=== PATIENT | female | born 1970 | race Caucasian/White ===

== ENCOUNTER → 2017-12-28 | Outpatient (CLI) | payer BC ==
--- NOTE | 2017-12-30 09:43 | MM ---
Reason for exam: screening (asymptomatic). Last mammogram was performed 1 year and 5 months ago. Physical Findings: A clinical breast exam by your physician is recommended on an annual basis and results should be correlated with mammographic findings. MG Screening Mammo w CAD Bilateral CC and MLO view(s) were taken. Prior study comparison: July 29, 2016, bilateral MG screening mammo w CAD. July 23, 2015, bilateral MG screening mammo w CAD. There are scattered fibroglandular densities. No significant changes when compared with prior studies. ASSESSMENT: Negative, BI-RAD 1 RECOMMENDATION: Routine screening mammogram of both breasts in 1 year.
== END | disposition home or self-care (01) ==
LOC: RADMAMWWP 09:41
PROVIDERS: ATTEND Family Medicine
DX: Z12.31 Encounter for screening mammogram for malignant neoplasm of breast (principal)
CPT/HCPCS: 77067

== ENCOUNTER 2020-12-23 11:36 | Inpatient (IN) | payer BC ==
[2020-12-23] MEDS ORDERED: PANTOPRAZOLE 40 MG/10 ML VIAL IVP STA (11:49)
[2020-12-23] MEDS ORDERED: HYDROmorphone 1 MG/ML 1 ML SYRINGE IVP STA (11:49)
[2020-12-23] MEDS ORDERED: SODIUM CHLORIDE 0.9% 500 ML 500 ML IV ONE (11:51)
[2020-12-23] MEDS ORDERED: ASPIRIN 325 MG TAB PO STA (11:51)
--- NOTE | 2020-12-23 11:52 | ED ---
General Adult HPI - General Chief complaint: Chest Pain Stated complaint: Chest pain Time Seen by Provider: 12/23/20 11:42 Source: patient, RN notes reviewed, old records reviewed Mode of arrival: wheelchair Limitations: no limitations - History of Present Illness Initial comments: 50-year-old female presents for evaluation of substernal chest pain which began 2 hours prior to arrival. This was associated with some nausea and vomiting. She has a history of lap band. She states that she had no symptoms prior to the onset 2 hours ago. She has had normal bowel movements up until yesterday. She denies any abdominal pain. The pain is mid chest. No previous history of CAD. She does report some mild associated dyspnea. No diaphoresis. - Related Data Home Medications Medication Instructions Recorded Confirmed Multivitamin [Multivitamins Adult 2 tab PO DAILY 04/30/16 05/12/16 Gummies] Allergies Allergy/AdvReac Type Severity Reaction Status Date / Time codeine Allergy Rash/Hives Verified 12/23/20 11:39 hydrocodone Allergy Rash/Hives Verified 12/23/20 11:39 infliximab [From Remicade] Allergy bronchospas Verified 12/23/20 11:39 ms/hives ondansetron HCl AdvReac seizure Verified 12/23/20 11:39 [From Zofran (as like hydrochloride)] activity prochlorperazine AdvReac "looked Verified 12/23/20 11:39 [From Compazine] like a seizure" prochlorperazine edisylate AdvReac "looked Verified 12/23/20 11:39 [From Compazine] like a seizure" prochlorperazine maleate AdvReac "looked Verified 12/23/20 11:39 [From Compazine] like a seizure" Review of Systems ROS Statement: Those systems with pertinent positive or pertinent negative responses have been documented in the HPI. ROS Other: All systems not noted in ROS Statement are negative. Past Medical History Additional Past Medical History / Comment(s): Chrohns Disease. History of Any Multi-Drug Resistant Organisms: None Reported Past Surgical History: Appendectomy, Bariatric Surgery, Bowel Resection, Cholecystectomy, Hernia Repair, Tubal Ligation Additional Past Surgical History / Comment(s): LAP BAND, Bowel resection x2 (2001 most recent) Past Anesthesia/Blood Transfusion Reactions: Motion Sickness Past Psychological History: No Psychological Hx Reported Smoking Status: Current every day smoker Past Alcohol Use History: Occasional Past Drug Use History: Marijuana - Past Family History Mother Family Medical History: Hyperlipidemia, Hypertension Additional Family Medical History / Comment(s): Heart has an "extra beat", still living. Father Family Medical History: Coronary Artery Disease (CAD), Hyperlipidemia, Hypertension Additional Family Medical History / Comment(s): Has a "bad valve" believes mitral. Still living. General Exam Limitations: no limitations General appearance: alert, in no apparent distress Head exam: Present: atraumatic, normocephalic Eye exam: Present: normal appearance, PERRL ENT exam: Present: mucous membranes dry Neck exam: Present: normal inspection. Absent: tenderness, meningismus Respiratory exam: Present: normal lung sounds bilaterally. Absent: respiratory distress, wheezes Cardiovascular Exam: Present: regular rate, normal rhythm GI/Abdominal exam: Present: soft. Absent: distended, tenderness, guarding, rebound, rigid Extremities exam: Present: normal inspection, normal capillary refill. Absent: pedal edema, calf tenderness Neurological exam: Present: alert, oriented X3, CN II-XII intact. Absent: motor sensory deficit Psychiatric exam: Present: anxious Skin exam: Present: warm, dry, intact. Absent: cyanosis, diaphoretic Course Vital Signs 12/23/20 11:37 Temperature 97.1 F L Pulse Rate 76 Respiratory 22 Rate Blood Pressure 151/89 O2 Sat by Pulse 100 Oximetry - Reevaluation(s) Reevaluation #1: 12/23/20 13:46 Patient reevaluated, resting comfortably, pain nearly resolved with GI cocktail. EKG Findings - EKG Comments: EKG Findings:: Normal sinus rhythm, rate 68, NV interval 136, QRS duration 88, QTC 421, no ST segment elevation T waves are upright. Repeat EKG at 1241, sinus bradycardia rate of 50, T-wave abnormality in aVL, no ST segment elevation, NV interval 128, QRS duration 90, QTC 408. Medical Decision Making - Medical Decision Making 50-year-old female presenting with chest pain. Workup is initiated, EKG showing sinus bradycardia without ST segment elevation. This is repeated with no significant change. She has a normal CBC, normal CMP, negative liver enzymes, negative cardiac enzymes 2 in the emergency department. Chest x-rays negative for acute cardiopulmonary disease. Her symptoms are improved with GI cocktail. She will be admitted with both cardiology and general surgery on consult. - Lab Data Result diagrams: 12/23/20 11:51 12/23/20 11:51 Lab Results 12/23/20 12/23/20 12/23/20 Range/Units 11:51 11:51 11:51 WBC 7.4 (3.8-10.6) k/uL RBC 4.50 (3.80-5.40) m/uL Hgb 13.9 (11.4-16.0) gm/dL Hct 40.8 (34.0-46.0) % MCV 90.7 (80.0-100.0) fL MCH 31.0 (25.0-35.0) pg MCHC 34.1 (31.0-37.0) g/dL RDW 12.4 (11.5-15.5) % Plt Count 276 (150-450) k/uL MPV 6.7 Neutrophils % 63 % Lymphocytes % 26 % Monocytes % 4 % Eosinophils % 4 % Basophils % 1 % Neutrophils # 4.7 (1.3-7.7) k/uL Lymphocytes # 1.9 (1.0-4.8) k/uL Monocytes # 0.3 (0-1.0) k/uL Eosinophils # 0.3 (0-0.7) k/uL Basophils # 0.0 (0-0.2) k/uL PT 9.4 (9.0-12.0) sec INR 0.8 (<1.2) APTT 22.2 (22.0-30.0) sec Sodium 137 (137-145) mmol/L Potassium 4.2 (3.5-5.1) mmol/L Chloride 106 (98-107) mmol/L Carbon Dioxide 26 (22-30) mmol/L Anion Gap 5 mmol/L BUN 13 (7-17) mg/dL Creatinine 0.81 (0.52-1.04) mg/dL Est GFR (CKD-EPI)AfAm >90 (>60 ml/min/1.73 sqM) Est GFR (CKD-EPI)NonAf 84 (>60 ml/min/1.73 sqM) Glucose 105 H (74-99) mg/dL Calcium 10.4 H (8.4-10.2) mg/dL Magnesium 2.0 (1.6-2.3) mg/dL Total Bilirubin 0.6 (0.2-1.3) mg/dL AST 23 (14-36) U/L ALT 21 (4-34) U/L Alkaline Phosphatase 91 (38-126) U/L Troponin I (0.000-0.034) ng/mL Total Protein 6.9 (6.3-8.2) g/dL Albumin 4.1 (3.5-5.0) g/dL Lipase 86 (23-300) U/L 12/23/20 12/23/20 Range/Units 11:51 12:55 WBC (3.8-10.6) k/uL RBC (3.80-5.40) m/uL Hgb (11.4-16.0) gm/dL Hct (34.0-46.0) % MCV (80.0-100.0) fL MCH (25.0-35.0) pg MCHC (31.0-37.0) g/dL RDW (11.5-15.5) % Plt Count (150-450) k/uL MPV Neutrophils % % Lymphocytes % % Monocytes % % Eosinophils % % Basophils % % Neutrophils # (1.3-7.7) k/uL Lymphocytes # (1.0-4.8) k/uL Monocytes # (0-1.0) k/uL Eosinophils # (0-0.7) k/uL Basophils # (0-0.2) k/uL PT (9.0-12.0) sec INR (<1.2) APTT (22.0-30.0) sec Sodium (137-145) mmol/L Potassium (3.5-5.1) mmol/L Chloride (98-107) mmol/L Carbon Dioxide (22-30) mmol/L Anion Gap mmol/L BUN (7-17) mg/dL Creatinine (0.52-1.04) mg/dL Est GFR (CKD-EPI)AfAm (>60 ml/min/1.73 sqM) Est GFR (CKD-EPI)NonAf (>60 ml/min/1.73 sqM) Glucose (74-99) mg/dL Calcium (8.4-10.2) mg/dL Magnesium (1.6-2.3) mg/dL Total Bilirubin (0.2-1.3) mg/dL AST (14-36) U/L ALT (4-34) U/L Alkaline Phosphatase (38-126) U/L Troponin I <0.012 <0.012 (0.000-0.034) ng/mL Total Protein (6.3-8.2) g/dL Albumin (3.5-5.0) g/dL Lipase (23-300) U/L Disposition Clinical Impression: Chest pain Disposition: ADMITTED IP TO THIS HOSP Condition: Stable Is patient prescribed a controlled substance at d/c from ED?: No Referrals: Audi Marte DO [Primary Care Provider] - 1-2 days Decision to Admit Reason: Admit from EC Decision Date: 12/23/20 Decision Time: 13:48
[2020-12-23 12:00] LABS: Basophils % (A) 1 %; Eosinophils # (A) 0.3 k/uL (0-0.7); Eosinophils % (A) 4 %; HCT 40.8 % (34.0-46.0); HGB 13.9 gm/dL (11.4-16.0); Lymphocytes # (A) 1.9 k/uL (1.0-4.8); Lymphocytes % (A) 26 %; MCHC 34.1 g/dL (31.0-37.0); MCV 90.7 fL (80.0-100.0); Mean Platelet Volume 6.7; Monocytes # (A) 0.3 k/uL (0-1.0); Monocytes % (A) 4 %; Neutrophils # (A) 4.7 k/uL (1.3-7.7); Neutrophils % (A) 63 %; Platelet Count 276 k/uL (150-450); RDW 12.4 % (11.5-15.5); WBC 7.4 k/uL (3.8-10.6)
[2020-12-23 12:11] LABS: ALT 21 U/L (4-34); AST 23 U/L (14-36); African American GFR (CKD) >90 (>60 ml/min/1.73 sqM); Albumin 4.1 g/dL (3.5-5.0); Alkaline Phosphatase 91 U/L (38-126); Anion Gap 5 mmol/L; Blood Urea Nitrogen 13 mg/dL (7-17); Calcium 10.4 mg/dL (8.4-10.2); Carbon Dioxide 26 mmol/L (22-30); Chloride 106 mmol/L (98-107); Glucose 105 mg/dL (74-99); Lipase 86 U/L (23-300); Non-African American GFR(CKD) 84 (>60 ml/min/1.73 sqM); Potassium 4.2 mmol/L (3.5-5.1); Sodium 137 mmol/L (137-145); Total Bilirubin 0.6 mg/dL (0.2-1.3); Total Protein 6.9 g/dL (6.3-8.2)
--- NOTE | 2020-12-23 12:13 | XR ---
EXAMINATION TYPE: XR chest 2V DATE OF EXAM: 12/23/2020 COMPARISON: None TECHNIQUE: PA and lateral views submitted. HISTORY: Chest pain FINDINGS: The lungs are clear and there is no pneumothorax, pleural effusion, or focal pneumonia. Suggestion of previous lap band surgery. IMPRESSION: 1. No acute process.
[2020-12-23 12:17] LABS: INR 0.8 (<1.2); Partial Thromboplastin Time 22.2 sec (22.0-30.0); Prothrombin Time 9.4 sec (9.0-12.0)
[2020-12-23] MEDS ORDERED: HYDROmorphone 0.5 MG/0.5 ML SYRINGE IVP STA (12:42)
[2020-12-23] MEDS ORDERED: MAG HYDROX/AL HYDROX/SIMETH 30 ML, HYOSCYAMINE ELIXIR 10 ML, LIDOCAINE VISCOUS 2% 10 ML PO STA ×3 (12:43)
[2020-12-23] MEDS ORDERED: NALOXONE 0.4 MG/ML 1 ML VIAL IV PRN (13:41)
[2020-12-23] MEDS ORDERED: HYDROmorphone 1 MG/ML 1 ML SYRINGE IVP PRN (13:41)
[2020-12-23 15:29] LABS: ALT 21 U/L (4-34); AST 23 U/L (14-36); African American GFR (CKD) >90 (>60 ml/min/1.73 sqM); Albumin/Globulin Ratio 1.4; Alkaline Phosphatase 85 U/L (38-126); Anion Gap 5 mmol/L; Blood Urea Nitrogen 13 mg/dL (7-17); C Reactive Protein 1.5 mg/dL (<1.0); Calcium 9.6 mg/dL (8.4-10.2); Carbon Dioxide 28 mmol/L (22-30); Chloride 106 mmol/L (98-107); Globulin 2.8 g/dL; Glucose 118 mg/dL (74-99); Non-African American GFR(CKD) 83 (>60 ml/min/1.73 sqM); Sodium 139 mmol/L (137-145); Total Bilirubin 0.5 mg/dL (0.2-1.3); Total Protein 6.8 g/dL (6.3-8.2)
--- NOTE | 2020-12-23 15:33 | HP ---
HISTORY AND PHYSICAL DATE OF SERVICE: 12/23/2020 CHIEF COMPLAINT: Chest pain. HISTORY OF PRESENT ILLNESS: This 50-year-old woman with a past medical history of multiple medical problems including appendectomy, history of bariatric surgery, bowel resection, cholecystectomy, history of lap band, being followed by Dr. Marte in the outpatient setting was complaining of chest pain. The pain was associated with some nausea and vomiting. patient came to [facility] and was admitted to the hospital for further evaluation and treatment. Patient reports some stress . The most recent chest x-ray which I reviewed personally showed some increased bronchovascular markings. There is no history of fever, rigors, chills at this time. PAST MEDICAL HISTORY: Appendectomy, history of bariatric surgery, bowel resection, cholecystectomy, history of lap band. MEDICATIONS: Medications prior to admission include: Omeprazole 20 mg daily, vitamins 1 p.o. daily. ALLERGIES: CODEINE, HYDROCODONE, REMICADE, PROCHLORPERAZINE. FAMILY HISTORY: Hypertension, hyperlipidemia, history of PVCs. SOCIAL HISTORY: History of smoking. REVIEW OF SYSTEMS: ENT: No diminished vision. No diminished hearing. CARDIOVASCULAR as mentioned earlier. RESPIRATORY: As mentioned earlier. GASTROENTEROLOGY: Crohn's disease. : No dysuria. NERVOUS SYSTEM: No numbness, weakness. ALLERGY/IMMUNOLOGY: No asthma or hayfever. MUSCULOSKELETAL as mentioned earlier. HEMATOLOGY/ONCOLOGY: No history of anemia. ENDOCRINE: No history of diabetes or hypothyroidism. CONSTITUTIONAL: As mentioned earlier. DERMATOLOGY: Negative. RHEUMATOLOGY: Negative. PSYCHIATRIC: As mentioned earlier. PHYSICAL EXAMINATION: The patient is alert and oriented times three. Pulse 76. Blood pressure 151/89, respiration 20, temperature 97.1, pulse ox 100 percent on room air. HEENT: Conjunctivae normal. NECK: No JVD. CARDIOVASCULAR: S1, S2 muffled. RESPIRATION: Breath sounds diminished in the bases. A few scattered rhonchi and crackles. ABDOMEN: Soft, nontender. No mass palpable. LEGS: No edema. No swelling. NERVOUS SYSTEM: Higher functions as mentioned earlier. Moves all 4 limbs, no focal motor or sensory deficits. SKIN: No ulcer, no rash and no bleeding. JOINTS: No active deforming arthropathy. LABS: At this time shows: WBC 7.2, hemoglobin 13.9, and calcium is 10.4. Troponins are negative. The EKG which I personally reviewed showed no acute abnormality. ASSESSMENT: 1. Chest pain for evaluation, possibly unstable angina. Rule out coronary artery disease and Myocardial infarction 2. Nausea vomiting possible acute gastritis 3. Mild hypercalcemia. 4. Crohn's disease history. 5. Appendectomy. 6. History of bariatric surgery. 7. History of bowel resection. 8. History of cholecystectomy. 9. History of lap band. 10.History of continued ongoing nicotine dependence. 11.History of THC. 12.FULL CODE. RECOMMENDATIONS AND DISCUSSION: This 50-year-old woman who presented with multiple complex medical issues, we will monitor the patient closely, continue the current medications, management and symptomatic treatment. I would also recommend D-dimer and if D-dimer is positive, I will obtain a CT angio of the chest. Otherwise, continue to monitor. Cardiology consult, rule out myocardial function. the patient is not better heparin drip and as well as some nitro drip could be initiated. Symptomatic treatment also will be provided. See orders for further details. Old charts are reviewed Prognosis guarded because of multiple complex medical issues. A copy of dictation being forwarded to Dr. Marte who is the primary physician. MMODL / IJN: [id number] / MTDVijay
[2020-12-23] MEDS ORDERED: METOCLOPRAMIDE 5 MG/ML 2 ML VIAL IM PRN (18:10)
[2020-12-23] MEDS: SODIUM CHLORIDE 0.9% 1,000 ML IV SCH (18:15)
[2020-12-23] MEDS: METOCLOPRAMIDE 5 MG/ML 2 ML VIAL IVP SCH ×2 (18:24→23:25)
[2020-12-23] MEDS ORDERED: HEPARIN SODIUM 1,000 UN/ML (10ML VL) IV PRN (19:01)
[2020-12-23] MEDS ORDERED: HEPARIN SODIUM 1,000 UN/ML (10ML VL) IV ONE (19:01)
[2020-12-23] MEDS ORDERED: HEPARIN SOD,PORK IN 0.45% NACL 25,000 UNIT in 0.45% NACL 1 250ML.BAG IV SCH (19:15)
[2020-12-23] MEDS: NITROGLYCERIN SL TABS 0.4 MG TAB SUBLINGUAL PRN ×2 (20:55→23:43)
[2020-12-23 22:09] LABS: Basophils % (A) 0 %; Eosinophils # (A) 0.1 k/uL (0-0.7); Eosinophils % (A) 1 %; HCT 38.6 % (34.0-46.0); HGB 13.1 gm/dL (11.4-16.0); Lymphocytes # (A) 1.2 k/uL (1.0-4.8); Lymphocytes % (A) 13 %; MCH 31.1 pg (25.0-35.0); MCHC 33.9 g/dL (31.0-37.0); MCV 91.8 fL (80.0-100.0); Mean Platelet Volume 6.7; Monocytes # (A) 0.4 k/uL (0-1.0); Monocytes % (A) 4 %; Neutrophils # (A) 7.8 k/uL (1.3-7.7); Neutrophils % (A) 81 %; Platelet Count 250 k/uL (150-450); RBC 4.21 m/uL (3.80-5.40); RDW 12.5 % (11.5-15.5); WBC 9.5 k/uL (3.8-10.6)
[2020-12-23] MEDS ORDERED: ACETAMINOPHEN TAB 325 MG TAB PO PRN (23:58)
[2020-12-24 01:09] LABS: INR 0.9 (<1.2); Partial Thromboplastin Time 37.7 sec (22.0-30.0); Prothrombin Time 9.9 sec (9.0-12.0)
[2020-12-24] MEDS: SODIUM CHLORIDE 0.9% 1,000 ML IV SCH ×3 (03:15→23:47)
[2020-12-24] MEDS: METOCLOPRAMIDE 5 MG/ML 2 ML VIAL IVP SCH (05:55)
[2020-12-24 07:51] LABS: Basophils # (A) 0.1 k/uL (0-0.2); Basophils % (A) 0 %; Eosinophils # (A) 0.1 k/uL (0-0.7); Eosinophils % (A) 1 %; HCT 37.1 % (34.0-46.0); HGB 12.2 gm/dL (11.4-16.0); Lymphocytes # (A) 1.3 k/uL (1.0-4.8); Lymphocytes % (A) 11 %; MCH 30.3 pg (25.0-35.0); MCHC 32.9 g/dL (31.0-37.0); MCV 92.1 fL (80.0-100.0); Mean Platelet Volume 6.8; Monocytes # (A) 0.4 k/uL (0-1.0); Monocytes % (A) 4 %; Neutrophils # (A) 9.5 k/uL (1.3-7.7); Neutrophils % (A) 83 %; Platelet Count 241 k/uL (150-450); RBC 4.03 m/uL (3.80-5.40); RDW 12.6 % (11.5-15.5); WBC 11.5 k/uL (3.8-10.6)
[2020-12-24] MEDS ORDERED: ASPIRIN 325 MG TAB PO STA (08:07)
[2020-12-24] MEDS ORDERED: ATORVASTATIN 80 MG TAB PO STA (08:07)
[2020-12-24] MEDS ORDERED: SODIUM CHLORIDE 0.9% 1,000 ML in EMPTY BAG 1 BAG IV ONE (08:07)
[2020-12-24 08:08] LABS: Anion Gap 2 mmol/L; Blood Urea Nitrogen 11 mg/dL (7-17); Carbon Dioxide 26 mmol/L (22-30); Chloride 109 mmol/L (98-107); Glucose 113 mg/dL (74-99); Potassium 3.7 mmol/L (3.5-5.1); Sodium 137 mmol/L (137-145)
[2020-12-24 08:09] LABS: African American GFR (CKD) >90 (>60 ml/min/1.73 sqM); Calcium 8.6 mg/dL (8.4-10.2); Non-African American GFR(CKD) >90 (>60 ml/min/1.73 sqM)
[2020-12-24 08:10] LABS: INR 0.9 (<1.2); Partial Thromboplastin Time 48.6 sec (22.0-30.0); Prothrombin Time 9.9 sec (9.0-12.0)
[2020-12-24] MEDS ORDERED: NITROGLYCERIN OINT 1 INCH/GM PACKET TOPICAL SCH (08:30)
[2020-12-24 08:39] LABS: Cholesterol 209 mg/dL (<200); HDL Cholesterol 68 mg/dL (40-60); LDL Cholesterol,Calculated 122 mg/dL (0-99); Triglycerides 93 mg/dL (<150)
[2020-12-24] MEDS ORDERED: METOCLOPRAMIDE 5 MG/ML 2 ML VIAL IVP PRN (08:54)
[2020-12-24] MEDS ORDERED: PANTOPRAZOLE 40 MG/10 ML VIAL IV SCH (09:00)
[2020-12-24] MEDS ORDERED: NITROGLYCERIN-D5W PMX 50 MG in DEXTROSE/WATER 1 250ML.BAG IV SCH ×2 (09:15)
[2020-12-24] MEDS ORDERED: fentaNYL (PF) 50 MCG/ML 2 ML AMP IVP ONE ×3 (09:53→10:26)
[2020-12-24] MEDS ORDERED: IV FLUID CONTINUATION 800 ML IV ONE (09:53)
[2020-12-24] MEDS ORDERED: MIDAZOLAM 2 MG/2 ML VIAL IVP ONE ×2 (09:53→10:27)
[2020-12-24] MEDS ORDERED: LIDOCAINE 1% INJ 10MG/ML (20 ML MDV) SQ ONE (09:56)
[2020-12-24] MEDS ORDERED: BIVALIRUDIN 250 MG in SODIUM CHLORIDE 0.9% 50 ML IV ONE (10:27)
[2020-12-24] MEDS ORDERED: BIVALIRUDIN BOLUS 250 MG/50 ML IV ONE (10:28)
[2020-12-24] MEDS ORDERED: niCARdipine Syringe (1,000 mcg/10 mL) INTRACORON ONE (10:41)
[2020-12-24] MEDS ORDERED: NITROGLYCERIN 1000MCG/10ML SYRINGE INTRACORON ONE (10:41)
[2020-12-24] MEDS ORDERED: HYDROmorphone 1 MG/ML 1 ML SYRINGE IVP ONE (10:51)
[2020-12-24] MEDS ORDERED: PRASUGREL 10 MG TAB ONE (10:56)
[2020-12-24] MEDS ORDERED: PRASUGREL 10 MG TAB PO ONE (10:58)
[2020-12-24] MEDS ORDERED: IOPAMIDOL-370 100ML BTL INJ ONE (11:00)
[2020-12-24] MEDS ORDERED: NITROGLYCERIN SL TABS 0.4 MG TAB SUBLINGUAL PRN (11:07)
[2020-12-24] MEDS ORDERED: MAG HYDROX/AL HYDROX/SIMETH 30 ML CUP PO PRN (11:07)
[2020-12-24] MEDS ORDERED: ATROPINE SULFATE 0.1 MG/ML 10ML SYRINGE IV PRN (11:07)
[2020-12-24] MEDS ORDERED: ZOLPIDEM 5 MG TAB PO PRN (11:07)
[2020-12-24] MEDS ORDERED: RX INFO: IV CONTRAST WAS GIVEN 1 EACH MISC MISCELLANE PRN (11:07)
--- NOTE | 2020-12-24 11:08 | P.CRDCN ---
History of Present Illness History of present illness: HISTORY OF PRESENTING ILLNESS This is a pleasant 50-year-old female past medical history significant for chronic nicotine dependence and prior history of hypertension that resolved with weight loss status post lap band procedure. 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 We have been asked to see in consultation for chest pain. He states yesterday morning she woke up in her usual state of health. She walked out to the barn to feed the birds. She developed an acute onset of sharp pain in the midsternal region. It did not radiate to the arm, back, neck or jaw. It was associated with shortness of breath, nausea, dizziness, diaphoresis and overall weakness. Her assisted her to sit down and had her drink a glass of water. Her symptoms persisted and worsened in intensity prompting her to come to the hospital for further evaluation. On arrival to emergency department she was having ongoing chest discomfort. She states it was 9/10. She was given Dilaudid and nitroglycerin which did relieve her discomfort. She states through the night she had multiple episodes of recurrent chest discomfort that was exacerbated by activity or exertion such as walking to the bathroom. Nitro infusion was initiated. She is currently chest pain-free. DIAGNOSTICS EKG reveals sinus mechanism with no acute ST or T wave abnormalities noted. Telemetry tracings indicate sinus mechanism. Chest xray negative for an acute cardiopulmonary process. Laboratory reviewed, BC 11.5, hemoglobin 12.2, platelets 241, d-dimer 0.39, sodium 137, potassium 3.7, creatinine 0.73, initial 3 troponins are unremarkable, they were repeated after ongoing chest discomfort revealing 0.0 77 and 0.590, LDL 122 and HDL 68. She takes no daily cardiac medications. REVIEW OF SYSTEMS At the time of my exam: CONSTITUTIONAL: Denies fever or chills. CARDIOVASCULAR: Denies chest pain, shortness of breath, orthopnea, PND or palpitations. RESPIRATORY: Denies cough. GASTROINTESTINAL: Denies abdominal pain, diarrhea, constipation, nausea or vomiting. MUSCULOSKELETAL: Denies myalgias. NEUROLOGIC: Denies numbness, tingling, headacbe or weakness. ENDOCRINE: Denies fatigue, weight change, polydipsia or polyurina. GENITOURINARY: Denies burning, hematuria or urgency with micturation. HEMATOLOGIC: Denies history of anemia or bleeding. PHYSICAL EXAMINATION Blood pressure 133/78 heart rate 74 afebrile and maintaining oxygen saturation on room air. CONSTITUTIONAL: No apparent distress. HEENT: Head is normocephalic. Pupils are equal, round. Sclerae anicteric. Mucous membranes of the mouth are moist. No JVD. No carotid bruit. CHEST EXAMINATION: Lungs are clear to auscultation. No chest wall tenderness is noted on palpation or with deep breathing. HEART EXAMINATION: Regular rate and rhythm. S1, S2 heard. No murmurs, gallops or rub. ABDOMEN: Soft, nontender. Positive bowel sounds. EXTREMITIES: 2+ peripheral pulses, no lower extremity edema and no calf tenderness. NEUROLOGIC EXAMINATION: Patient is awake, alert and oriented x3. ASSESSMENT Unstable angina Non-ST elevated myocardial infarction Dyslipidemia Chronic nicotine dependence PLAN Recommend proceeding with cardiac catheterization. I have discussed the risks, benefits and alternative therapies for the above-mentioned procedure and for both sedation/analgesia as well as necessary blood product administration, if indicated, as they pertain to this patient. The patient has indicated understanding and acceptance of the risks and procedures discussed. Questions have been answered appropriately and she is agreeable to move forward with the above stated procedure. Obtain 2-D echocardiogram and Doppler study to assess cardiac structure and function. Initiate aspirin 81 mg daily and atorvastatin 80 mg daily. Further recommendations to follow based upon clinical course. Nurse Practitioner note has been reviewed, I agree with a documented findings and plan of care. Patient was seen and examined. Past Medical History Additional Past Medical History / Comment(s): Chrohns Disease. History of Any Multi-Drug Resistant Organisms: None Reported Past Surgical History: Appendectomy, Bariatric Surgery, Bowel Resection, Cholecystectomy, Hernia Repair, Tubal Ligation Additional Past Surgical History / Comment(s): LAP BAND, Bowel resection x2 (2001 most recent) Past Anesthesia/Blood Transfusion Reactions: Motion Sickness Past Psychological History: No Psychological Hx Reported Smoking Status: Current every day smoker Past Alcohol Use History: Daily Additional Past Alcohol Use History / Comment(s): SMOKES 1/2 A PPD, STARTED AT AGE 11 (1981) - Past Family History Mother Family Medical History: Hyperlipidemia, Hypertension Additional Family Medical History / Comment(s): Heart has an "extra beat", still living. Father Family Medical History: Coronary Artery Disease (CAD), Hyperlipidemia, Hypert ension Additional Family Medical History / Comment(s): Has a "bad valve" believes mitral. Still living. Medications and Allergies Home Medications Medication Instructions Recorded Confirmed Type Multivitamins, Thera [Multivitamin 1 tab PO DAILY 12/23/20 12/23/20 History (formulary)] Omeprazole Magnesium [PriLOSEC OTC] 20 mg PO DAILY 12/23/20 12/23/20 History Allergies Allergy/AdvReac Type Severity Reaction Status Date / Time codeine Allergy Rash/Hives Verified 12/23/20 13:46 hydrocodone Allergy Rash/Hives Verified 12/23/20 13:46 infliximab [From Remicade] Allergy bronchospas Verified 12/23/20 13:46 ms/hives ondansetron HCl AdvReac seizure Verified 12/23/20 13:46 [From Zofran (as like hydrochloride)] activity prochlorperazine AdvReac "looked Verified 12/23/20 13:46 [From Compazine] like a seizure" prochlorperazine edisylate AdvReac "looked Verified 12/23/20 13:46 [From Compazine] like a seizure" prochlorperazine maleate AdvReac "looked Verified 12/23/20 13:46 [From Compazine] like a seizure" Physical Exam Vitals: Vital Signs Temp Pulse Pulse Resp BP BP Pulse Ox 12/24/20 03:37 98 F 73 18 111/71 97 12/24/20 00:00 98.1 F 70 16 136/75 97 12/23/20 21:00 67 130/79 12/23/20 20:57 65 133/86 12/23/20 20:45 97.8 F 67 16 173/93 98 12/23/20 20:31 98.1 F 61 18 152/81 100 12/23/20 19:28 66 18 141/97 96 12/23/20 18:00 60 18 128/92 98 12/23/20 14:53 52 L 18 133/87 98 12/23/20 11:37 97.1 F L 76 22 151/89 100 Intake and Output 12/23/20 12/24/20 12/24/20 22:59 06:59 14:59 Intake Total 598 Balance 598 Intake: Intake, IV Titration 58 Amount Heparin Sod,Pork in 0.45% 58 NaCl 25,000 unit In 0.45 % NaCl 1 250ml.bag @ 10. 498 UNITS/KG/HR 10 mls/hr IV .Q24H [facility] Rx#: [id number] Oral 540 Other: Voiding Method Toilet Toilet # Voids 1 Weight 95.254 kg 65 kg Results 12/24/20 07:23 12/24/20 07:23 Cardiac Enzymes 12/23/20 12/23/20 12/23/20 Range/Units 11:51 11:51 12:55 AST 23 (14-36) U/L Troponin I <0.012 <0.012 (0.000-0.034) ng/mL 12/23/20 12/23/20 12/23/20 Range/Units 14:33 15:02 17:52 AST 23 (14-36) U/L Troponin I <0.012 0.077 H* (0.000-0.034) ng/mL 12/23/20 Range/Units 21:47 AST (14-36) U/L Troponin I 0.590 H* (0.000-0.034) ng/mL Coagulation 12/23/20 12/24/20 Range/Units 11:51 00:48 PT 9.4 9.9 (9.0-12.0) sec APTT 22.2 37.7 H (22.0-30.0) sec CBC 12/23/20 12/23/20 12/24/20 Range/Units 11:51 21:47 07:23 WBC 7.4 9.5 11.5 H (3.8-10.6) k/uL RBC 4.50 4.21 4.03 (3.80-5.40) m/uL Hgb 13.9 13.1 12.2 (11.4-16.0) gm/dL Hct 40.8 38.6 37.1 (34.0-46.0) % Plt Count 276 250 241 (150-450) k/uL Comprehensive Metabolic Panel 12/23/20 12/23/20 Range/Units 11:51 14:33 Sodium 137 139 (137-145) mmol/L Potassium 4.2 4.0 (3.5-5.1) mmol/L Chloride 106 106 (98-107) mmol/L Carbon Dioxide 26 28 (22-30) mmol/L BUN 13 13 (7-17) mg/dL Creatinine 0.81 0.82 (0.52-1.04) mg/dL Glucose 105 H 118 H (74-99) mg/dL Calcium 10.4 H 9.6 (8.4-10.2) mg/dL AST 23 23 (14-36) U/L ALT 21 21 (4-34) U/L Alkaline Phosphatase 91 85 (38-126) U/L Total Protein 6.9 6.8 (6.3-8.2) g/dL Albumin 4.1 4.0 (3.5-5.0) g/dL Current Medications Generic Name Dose Route Start Last Admin Trade Name Freq PRN Reason Stop Dose Admin Acetaminophen 650 mg 12/23/20 23:58 Acetaminophen Tab 325 Mg Tab PO Q6HR PRN Fever and/ or Pain Heparin Sodium (Porcine) 0 unit 12/23/20 19:01 Heparin Sodium 1,000 Un/Ml (10ml Vl) IV PER PROTOCOL PRN Low PTT Protocol Hydromorphone HCl 0.5 mg 12/23/20 13:41 Hydromorphone 0.5 Mg/0.5 Ml Syringe IVP Q3HR PRN Moderate Pain Hydromorphone HCl 1 mg 12/23/20 13:41 12/23/20 14:50 Hydromorphone 1 Mg/Ml 1 Ml Syringe IVP 1 mg Q3HR PRN Administration Severe Pain Sodium Chloride 1,000 mls @ 75 mls/hr 12/23/20 13:45 12/24/20 03:15 Saline 0.9% IV Not Given .[id number] [id number] Heparin Sodium/Sodium Chloride 250 mls @ 10 mls/hr 12/23/20 19:15 12/24/20 01:19 25,000 unit/ Sodium Chloride IV 12.498 units/kg/hr .Q24H [facility] 11.905 mls/hr Titration Protocol 10.498 UNITS/KG/HR Nitroglycerin/Dextrose 50 mg/ 250 mls @ 3 mls/hr 12/24/20 00:00 12/24/20 00:15 IV Solution IV 10 mcg/min .Q24H MAKAYLA 3 mls/hr Administration Protocol 10 MCG/MIN Metoclopramide HCl 10 mg 12/23/20 18:30 12/24/20 05:55 Metoclopramide 5 Mg/Ml 2 Ml Vial IVP Not Given Q6HR MAKAYLA Naloxone HCl 0.2 mg 12/23/20 13:41 Naloxone 0.4 Mg/Ml 1 Ml Vial IV Q2M PRN Opioid Reversal Nitroglycerin 0.4 mg 12/23/20 12:19 12/23/20 23:43 Nitroglycerin Sl Tabs 0.4 Mg Tab SUBLINGUAL 0.4 mg Q5M PRN Administration Chest Pain Pantoprazole Sodium 40 mg 12/24/20 09:00 Pantoprazole 40 Mg/10 Ml Vial IV DAILY [facility] Intake and Output 12/23/20 12/24/20 12/24/20 22:59 06:59 14:59 Intake Total 598 Balance 598 Intake: Intake, IV Titration 58 Amount Heparin Sod,Pork in 0.45% 58 NaCl 25,000 unit In 0.45 % NaCl 1 250ml.bag @ 10. 498 UNITS/KG/HR 10 mls/hr IV .Q24H [facility] Rx#: [id number] Oral 540 Other: Voiding Method Toilet Toilet # Voids 1 Weight 95.254 kg 65 kg 12/24/20 07:23 12/23/20 14:33
[2020-12-24] MEDS ORDERED: SODIUM CHLORIDE 0.9% 1,000 ML IV SCH (11:15)
--- NOTE | 2020-12-24 13:42 | P.GSCN ---
History of Present Illness Consult date: 12/24/20 History of present illness: CHIEF COMPLAINT: Chest pain and epigastric abdominal pain HISTORY OF PRESENT ILLNESS: This is a 50-year-old female with a known history of lap band with a lap band port [place] [address] carr. She also has a history of bowel resection, cholecystectomy and hernia repair. She has a history of coronary artery disease. Patient presented to the hospital with complaints of chest pain in the midsternal area as well as discomfort in the epigastric area with nausea and vomiting. She also had shortness of breath, dizziness and diaphoresis and generalized weakness. She did have improvement with her symptoms with Dilaudid and nitroglycerin. She denies any difficulty with swallowing. She was found have elevated troponins and underwent heart catheterization today with 2 stents placed. Patient is seen after her heart catheterization. She is chest pain-free. She is feeling better. Surgical service was consulted in regards to patient's chest pain and if the lap and was meño to her symptoms. PAST MEDICAL HISTORY: See list. PAST SURGICAL HISTORY: See list. MEDICATIONS: See list. ALLERGIES: See list. SOCIAL HISTORY: No illicit drug use. REVIEW OF SYSTEMS: CONSTITUTIONAL: Denies fever or chills. HEENT: Denies blurred vision, vision changes, or eye pain. Denies hemoptysis CARDIOVASCULAR: Denies chest pain or pressure. RESPIRATORY: No shortness of breath. GASTROINTESTINAL: See HPI for pertinent findings HEMATOLOGIC: Denies bleeding disorders. GENITOURINARY: Denies any blood in urine or increased urinary frequency. SKIN: Denies pruitis. Denies rash. PHYSICAL EXAM: VITAL SIGNS: Reviewed GENERAL: Well-developed in no acute distress. HEENT: No sclera icterus. Extraocular movements grossly intact. Moist buccal mucosa. Head is atraumatic, normocephalic. No nasal drainage. ABDOMEN: Soft. Nondistended. Nontender NEUROLOGIC: Alert and oriented. Cranial nerves II through XII grossly intact. LABORATORY DATA: WBC 11.5 hemoglobin 12.2 crit and 0.73 Elevated troponins IMAGING: Chest x-rays negative ASSESSMENT: 1. Chest pain with known history of coronary disease status post heart catheterization 2. History of lap band with laparoscopic replacement and removal of lap band p ort in April 2016. PLAN: -Patient's symptoms are cardiac in nature. Lap band port is not contributing to patient's symptoms. -No surgical intervention planned -Continue supportive care Thank you for this consultation Physician Glaciologist note has been reviewed by physician. Signing provider agrees with the documented findings, assessment, and plan of care. Past Medical History Additional Past Medical History / Comment(s): Chrohns Disease. History of Any Multi-Drug Resistant Organisms: None Reported Past Surgical History: Appendectomy, Bariatric Surgery, Bowel Resection, Cholecystectomy, Hernia Repair, Tubal Ligation Additional Past Surgical History / Comment(s): LAP BAND, Bowel resection x2 (2001 most recent) Past Anesthesia/Blood Transfusion Reactions: Motion Sickness Past Psychological History: No Psychological Hx Reported Smoking Status: Current every day smoker Past Alcohol Use History: Daily Additional Past Alcohol Use History / Comment(s): SMOKES 1/2 A PPD, STARTED AT AGE 11 (1981) - Past Family History Mother Family Medical History: Hyperlipidemia, Hypertension Additional Family Medical History / Comment(s): Heart has an "extra beat", still living. Father Family Medical History: Coronary Artery Disease (CAD), Hyperlipidemia, Hypertension Additional Family Medical History / Comment(s): Has a "bad valve" believes mitral. Still living. Medications and Allergies Home Medications Medication Instructions Recorded Confirmed Type Multivitamins, Thera [Multivitamin 1 tab PO DAILY 12/23/20 12/23/20 History (formulary)] Omeprazole Magnesium [PriLOSEC OTC] 20 mg PO DAILY 12/23/20 12/23/20 History Allergies Allergy/AdvReac Type Severity Reaction Status Date / Time codeine Allergy Rash/Hives Verified 12/23/20 13:46 hydrocodone Allergy Rash/Hives Verified 12/23/20 13:46 infliximab [From Remicade] Allergy bronchospas Verified 12/23/20 13:46 ms/hives ondansetron HCl AdvReac seizure Verified 12/23/20 13:46 [From Zofran (as like hydrochloride)] activity prochlorperazine AdvReac "looked Verified 12/23/20 13:46 [From Compazine] like a seizure" prochlorperazine edisylate AdvReac "looked Verified 12/23/20 13:46 [From Compazine] like a seizure" prochlorperazine maleate AdvReac "looked Verified 12/23/20 13:46 [From Compazine] like a seizure" Surgical - Exam Vital Signs Temp Pulse Resp BP Pulse Ox 97.1 F L 76 22 151/89 100 12/23/20 11:37 12/23/20 11:37 12/23/20 11:37 12/23/20 11:37 12/23/20 11:37 Results - Labs 12/24/20 07:23 12/24/20 07:23 Abnormal Lab Results - Last 24 Hours (Table) 12/23/20 12/23/20 12/23/20 Range/Units 14:33 17:52 21:47 WBC (3.8-10.6) k/uL Neutrophils # 7.8 H (1.3-7.7) k/uL APTT (22.0-30.0) sec Chloride (98-107) mmol/L Glucose 118 H (74-99) mg/dL Troponin I 0.077 H* (0.000-0.034) ng/mL C-Reactive Protein 1.5 H (<1.0) mg/dL Cholesterol (<200) mg/dL LDL Cholesterol, Calc (0-99) mg/dL HDL Cholesterol (40-60) mg/dL 12/23/20 12/24/20 12/24/20 Range/Units 21:47 00:48 07:23 WBC 11.5 H (3.8-10.6) k/uL Neutrophils # 9.5 H (1.3-7.7) k/uL APTT 37.7 H (22.0-30.0) sec Chloride (98-107) mmol/L Glucose (74-99) mg/dL Troponin I 0.590 H* (0.000-0.034) ng/mL C-Reactive Protein (<1.0) mg/dL Cholesterol (<200) mg/dL LDL Cholesterol, Calc (0-99) mg/dL HDL Cholesterol (40-60) mg/dL 12/24/20 12/24/20 12/24/20 Range/Units 07:23 07:23 07:23 WBC (3.8-10.6) k/uL Neutrophils # (1.3-7.7) k/uL APTT 48.6 H (22.0-30.0) sec Chloride 109 H (98-107) mmol/L Glucose 113 H (74-99) mg/dL Troponin I (0.000-0.034) ng/mL C-Reactive Protein (<1.0) mg/dL Cholesterol 209 H (<200) mg/dL LDL Cholesterol, Calc 122 H (0-99) mg/dL HDL Cholesterol 68 H (40-60) mg/dL Diabetes panel 12/23/20 12/24/20 12/24/20 Range/Units 14:33 07:23 07:23 Sodium 139 137 (137-145) mmol/L Potassium 4.0 3.7 (3.5-5.1) mmol/L Chloride 106 109 H (98-107) mmol/L Carbon Dioxide 28 26 (22-30) mmol/L BUN 13 11 (7-17) mg/dL Creatinine 0.82 0.73 (0.52-1.04) mg/dL Glucose 118 H 113 H (74-99) mg/dL Calcium 9.6 8.6 (8.4-10.2) mg/dL AST 23 (14-36) U/L ALT 21 (4-34) U/L Alkaline Phosphatase 85 (38-126) U/L Total Protein 6.8 (6.3-8.2) g/dL Albumin 4.0 (3.5-5.0) g/dL Triglycerides 93 (<150) mg/dL HDL Cholesterol 68 H (40-60) mg/dL Calcium panel 12/23/20 12/24/20 Range/Units 14:33 07:23 Calcium 9.6 8.6 (8.4-10.2) mg/dL Albumin 4.0 (3.5-5.0) g/dL Pituitary panel 12/23/20 12/24/20 Range/Units 14:33 07:23 Sodium 139 137 (137-145) mmol/L Potassium 4.0 3.7 (3.5-5.1) mmol/L Chloride 106 109 H (98-107) mmol/L Carbon Dioxide 28 26 (22-30) mmol/L BUN 13 11 (7-17) mg/dL Creatinine 0.82 0.73 (0.52-1.04) mg/dL Glucose 118 H 113 H (74-99) mg/dL Calcium 9.6 8.6 (8.4-10.2) mg/dL Adrenal panel 12/23/20 12/24/20 Range/Units 14:33 07:23 Sodium 139 137 (137-145) mmol/L Potassium 4.0 3.7 (3.5-5.1) mmol/L Chloride 106 109 H (98-107) mmol/L Carbon Dioxide 28 26 (22-30) mmol/L BUN 13 11 (7-17) mg/dL Creatinine 0.82 0.73 (0.52-1.04) mg/dL Glucose 118 H 113 H (74-99) mg/dL Calcium 9.6 8.6 (8.4-10.2) mg/dL Total Bilirubin 0.5 (0.2-1.3) mg/dL AST 23 (14-36) U/L ALT 21 (4-34) U/L Alkaline Phosphatase 85 (38-126) U/L Total Protein 6.8 (6.3-8.2) g/dL Albumin 4.0 (3.5-5.0) g/dL
[2020-12-24] MEDS: HYDROmorphone 0.5 MG/0.5 ML SYRINGE IVP PRN ×2 (13:57→18:20)
--- NOTE | 2020-12-24 16:33 | PN ---
PROGRESS NOTE DATE OF SERVICE: 12/24/2020 This 50-year-old woman who was admitted with chest pain had possible acute non-ST- segment-elevation myocardial infarction. Patient underwent cardiac catheterization and stenting. The detailed reports are pending at this time. No chest pain. No palpitations. No fever. Surgery has seen the patient and ruled out any surgical causes at this time. PHYSICAL EXAMINATION: Alert and oriented x3. Pulse 60, blood pressure 135/76, respirations 16, temperature normal, pulse ox 96% on room air. HEENT: Conjunctivae normal. NECK: No jugular venous distention. CARDIOVASCULAR SYSTEM: S1, S2 muffled. RESPIRATORY SYSTEM: Breath sounds diminished at the bases. ABDOMEN: Soft, non-tender. No mass palpable. LEGS: No edema. No swelling. NERVOUS SYSTEM: Higher functions as mentioned earlier. Moves all 4 limbs. No focal motor or sensory deficit. LYMPHATICS: No lymph node palpable in neck, axillae or groin. LABS: WBC 11.5. Cholesterol noted. ASSESSMENT: 1. Chest pain, possible acute qjf-RL-fbvsikt-elevation myocardial infarction, status post cardiac catheterization and stenting. 2. Hyperlipidemia. 3. Nausea and vomiting; possibly acute gastritis. 4. Mild hypercalcemia. 5. Crohn's disease history. 6. Appendectomy. 7. History of bariatric surgery. 8. History of bowel resection. 9. History of cholecystectomy. 10.History of lap band. 11.History of continued ongoing nicotine dependence. 12.History of tetrahydrocannabinol. 13.FULL CODE. RECOMMENDATIONS AND DISCUSSION: I recommend to continue current medications, continue with the monitoring, symptomatic treatment. Continue with the antiplatelet agents. Continue with beta blockers. Continue the rest of the medications. Closely follow with Cardiology. Guarded prognosis. Further recommendations to follow. MMODL / IJN: [id number] /
--- NOTE | 2020-12-24 17:13 | LTR ---
December 24, 2020 To: Dr. Audi Marte Re: Elidia Muñoz (66) Dear Audi, I performed cardiac catheterization on Elidia Muñoz. A detailed catheterization note is enclosed for your records. In brief, she presented to hospital with chest pain and ruled in for myocardial infarction. Then she underwent cardiac catheterization that revealed acute occlusion of the PLV branch. It is a fairly small-caliber vessel. We will attempt angioplasty of the same. Thank you for giving us the privilege of participating in the care of this pleasant lady. Sincerely, Pito Green M.D. KIMMY / MARTHA: [id number] /
--- NOTE | 2020-12-24 17:13 | CC ---
CARDIAC CATHETERIZATION REPORT INDICATION: Acute nvw-IM-qzveqvf elevation [place]. PROCEDURE NOTE: After obtaining informed consent, left heart catheterization and coronary angiogram were performed via the right femoral artery using standard Daria catheters. Patient received moderate conscious sedation. Total sedation time was 15 minutes. During the vascular access, we initially obtained venous access and subsequently obtained arterial access. The patient had 2 sheaths in the groin and patient otherwise completed the procedure uneventfully. FINDINGS: HEMODYNAMICS: Left ventricular end-diastolic pressure is 18 mm. There is no significant gradient across the aortic valve. LEFT VENTRICULOGRAM: Left ventriculogram is not performed. ANGIOGRAPHIC DATA: Left main coronary artery is a normal-sized vessel. It is free of significant stenosis. It divides into left anterior descending coronary artery and circumflex coronary artery. LAD has mild to moderate atherosclerotic plaque in its mid portion. Both the circumflex and the LAD appear calcified but are free of significant focal areas of stenosis. Right coronary artery is a codominant vessel, and very distally the PLV branch seems acutely occluded. CONCLUSIONS: Acute occlusion of the PLV branch, mild to moderate nonobstructive sclerotic plaque in the LAD. PLAN: Angiographic data was reviewed by , on-call plum packer, who will attempt angioplasty of the right coronary artery. MMODL / IJN: [id number] /
--- NOTE | 2020-12-24 18:04 | LTR ---
December 24, 2020 To: Dr. Audi Marte Re: Elidia Muñoz (66) Dear Dr. Marte, Ms. Elidia Muñoz was admitted to [facility] with chest discomfort and ruled in for acute mxf-VC-cxenvgsbh myocardial infarction. She underwent heart catheterization by Dr. Green and was found to have occluded distal right coronary artery. I did perform successful stenting of the right coronary artery with good angiographic results and without any complication. I want to thank you for allowing me to participate in her care. Please do not hesitate to call if you have any question or concern. Sincerely, Hugh Mejia M.D. KIMMY / MARTHA: [id number] /
--- NOTE | 2020-12-24 18:04 | PTCA ---
PERCUTANEOUSTRANS CORORONARY ANGIOGRAPHY DATE OF SERVICE: 12/24/2020 PERFORMING PHYSICIAN: Hugh Mejia M.D. PROCEDURES PERFORMED: 1. Successful stenting of the distal right coronary artery using a 2.75 x 33 mm Xience drug-eluting stent with excellent angiographic results. 2. Successful stenting of the mid RCA using a 3.0 x 23 mm Xience drug-eluting stent with excellent angiographic results. 3. Selective right common femoral artery angiogram. INDICATION: This is a 50-year-old female patient with hypertension and dyslipidemia who was admitted to the hospital with chest discomfort. She was ruled in for acute non-ST- elevation myocardial infarction. She underwent heart catheterization by Dr. Green and was found to have occluded RCA distally. The decision was made to proceed with percutaneous coronary intervention. APPROACH: Right common femoral artery. COMPLICATIONS: None. LEVEL OF SEDATION: Moderate, with sedation length of 32 minutes. PROCEDURE DESCRIPTION: Please refer to diagnostic heart catheterization that was performed by Dr. Green earlier today. Anticoagulation was achieved with Angiomax with bolus and drip per protocol. Subsequently I engaged the RCA using an AR guide. It was an AR1 guide. After that I did cross the acute total occlusion of the RCA using a Whisper wire. Subsequently balloon angioplasty was performed using a 2.0 x 12 mm balloon. An angiogram was performed and showed no flow in the RCA. At that point, I did wire the RCA with a norman wire which was a run-through wire. I did that because there was some resistance with the 2.0 balloon. So I did expect that the stent would be difficult to deliver. After that I did balloon the RCA again using this time a 2.5 x 12 mm balloon. The following angiogram showed good flow in the RCA. Attempt to advance a 2.75 x 33 mm Xience was unsuccessful because the stent would not make the turn from the mid to the distal RCA. At that point, I did pull the stent out and I ballooned again using this time a 3.0 mm balloon. After that I was able to advance a 2.75 x 33 mm Xience drug-eluting stent where the stent was positioned under fluoroscopic guidance and deployed under 14 atmospheres for 20 seconds. Proximal to that stent I placed another Xience drug-eluting stent, 3.0 x 23 mm, where the stent again was positioned under fluoroscopic guidance and deployed under its nominal pressure. The area of overlap between the two stents was dilated using the stent balloon. The following angiogram showed excellent angiographic results and the procedure was completed without any complication. POST-PROCEDURE MANAGEMENT: 1. Dual anti-platelet therapy. 2. Risk factor modifications. 3. Follow up with the patient. MMDEANDRA / MARTHA: [id number] /
[2020-12-24] MEDS: METOPROLOL TARTRATE 25 MG TAB PO SCH (20:16)
[2020-12-24 22:25] LABS: African American GFR (CKD) >90 (>60 ml/min/1.73 sqM); Anion Gap -11 mmol/L; Blood Urea Nitrogen 8 mg/dL (7-17); Calcium 8.6 mg/dL (8.4-10.2); Carbon Dioxide 24 mmol/L (22-30); Chloride 108 mmol/L (98-107); Glucose 106 mg/dL (74-99); Magnesium 1.9 mg/dL (1.6-2.3); Non-African American GFR(CKD) >90 (>60 ml/min/1.73 sqM); Potassium 3.6 mmol/L (3.5-5.1); Sodium 121 mmol/L (137-145)
[2020-12-25 04:17] VITALS: RESP 16
[2020-12-25] MEDS ORDERED: HEPARIN SODIUM,PORCINE 10,000 UNIT in SODIUM CHLORIDE 0.9% 1,000 ML IRRIGATION PRN (07:00)
[2020-12-25] MEDS ORDERED: HEPARIN SODIUM,PORCINE 2,500 UNIT in SODIUM CHLORIDE 0.9% 250 ML IRRIGATION PRN (07:00)
[2020-12-25 08:08] LABS: HCT 35.2 % (34.0-46.0); MCH 31.4 pg (25.0-35.0); MCHC 34.2 g/dL (31.0-37.0); MCV 91.7 fL (80.0-100.0); Mean Platelet Volume 6.7; Platelet Count 211 k/uL (150-450); RBC 3.83 m/uL (3.80-5.40); RDW 12.5 % (11.5-15.5); WBC 9.6 k/uL (3.8-10.6)
[2020-12-25 08:20] LABS: African American GFR (CKD) >90 (>60 ml/min/1.73 sqM); Anion Gap 1 mmol/L; Blood Urea Nitrogen 7 mg/dL (7-17); Calcium 8.5 mg/dL (8.4-10.2); Carbon Dioxide 26 mmol/L (22-30); Chloride 109 mmol/L (98-107); Glucose 105 mg/dL (74-99); Non-African American GFR(CKD) >90 (>60 ml/min/1.73 sqM); Potassium 3.9 mmol/L (3.5-5.1); Sodium 136 mmol/L (137-145)
[2020-12-25] MEDS ORDERED: ASPIRIN 81 MG PO SCH ×2 (09:00)
[2020-12-25] MEDS ORDERED: PANTOPRAZOLE 40 MG TABLET PO SCH (09:00)
[2020-12-25] MEDS ORDERED: ATORVASTATIN 80 MG TAB PO SCH ×2 (09:00→21:00)
[2020-12-25 09:03] VITALS: BP 128/75; PULSE 75; TEMP 97.1
[2020-12-25] MEDS: METOPROLOL TARTRATE 25 MG TAB PO SCH (09:05)
--- NOTE | 2020-12-25 11:00 | ECHOF ---
Referral Reason:cp, nstemi MEASUREMENTS -------- HEIGHT: 157.5 cm WEIGHT: 64.9 kg BP: RVIDd: 2.1 cm (< 3.3) IVSd: 1.7 cm (0.6 - 1.1) LVIDd: 2.7 cm (3.9 - 5.3) LVPWd: 1.8 cm (0.6 - 1.1) IVSs: 2.0 cm LVIDs: 2.0 cm LVPWs: 1.8 cm LAESV Index (A-L): 34.35 ml/m Ao Diam: 3.3 cm (2.0 - 3.7) AV Cusp: 2.0 cm (1.5 - 2.6) LA Diam: 4.0 cm (2.7 - 3.8) MV EXCURSION: 16.659 mm (> 18.000) MV EF SLOPE: 130 mm/s (70 - 150) EPSS: 0.6 cm MV E Zen: 1.13 m/s MV DecT: 259 ms MV A Zen: 0.85 m/s MV E/A Ratio: 1.32 RAP: 5.00 mmHg RVSP: 16.30 mmHg FINDINGS -------- This was a technically difficult study with suboptimal views. The left ventricular size is normal. There is moderate concentric left ventricular hypertrophy. O verall left ventricular systolic function is low-normal with, an EF between 50 - 55 %. The diastoli c filling pattern is normal for the age of the patient 10.44. The right ventricle is normal in size. LA is moderately dilated 34-39 ml/m2 The right atrial size is normal. xx ml of Lumason was utilized for enhancement of images. The aortic valve is trileaflet and appears structurally normal. The mitral valve is normal. There is trace mitral regurgitation. The tricuspid valve appears structurally normal. Trace tricuspid regurgitation present. Right hugo tricular systolic pressure is normal at < 35 mmHg. There is no pulmonic regurgitation present. The aortic root size is normal. IVC Not well visulized. There is no pericardial effusion. CONCLUSIONS -------- 1. The left ventricular size is normal. 2. There is moderate concentric left ventricular hypertrophy. 3. Overall left ventricular systolic function is low-normal with, an EF between 50 - 55 %. 4. The diastolic filling pattern is normal for the age of the patient 10.44 5. LA is moderately dilated 34-39 ml/m2 6. There is trace mitral regurgitation. 7. Trace tricuspid regurgitation present. 8. There is no pericardial effusion. TRAVELING NURSE: Lina Kim RDCS
--- NOTE | 2020-12-25 11:25 | P.PN ---
Subjective HISTORY OF PRESENTING ILLNESS This is a pleasant 50-year-old female past medical history significant for chronic nicotine dependence and prior history of hypertension that resolved with weight loss status post lap band procedure. She denies prior history of coronary artery disease and does not follow in the office with a superintendent menagerie. We have been asked to see in consultation for chest pain. He states yesterday morning she woke up in her usual state of health. She walked out to the barn to feed the birds. She developed an acute onset of sharp pain in the midsternal region. It did not radiate to the arm, back, neck or jaw. It was associated with shortness of breath, nausea, dizziness, diaphoresis and overall weakness. Her assisted her to sit down and had her drink a glass of water. Her symptoms persisted and worsened in intensity prompting her to come to the hospital for further evaluation. On arrival to emergency department she was having ongoing chest discomfort. She states it was 9/10. She was given Di laudid and nitroglycerin which did relieve her discomfort. She states through the night she had multiple episodes of recurrent chest discomfort that was exacerbated by activity or exertion such as walking to the bathroom. Nitro infusion was initiated. She is currently chest pain-free. 12/25/2020 Pt seen and examined sitting up in recliner in no acute distress. She has had no further symptoms of chest pain since undergoing PCI. Breathing is stable. Repeat EKG this am revealed sinus mechanism with T-wave inversions inferiorly. She underwent successful PCI to the mid and distal RCA and is maintained on dual anti-platelet therapy. The pressure 106/63 heart rate 71 afebrile maintaining oxygen saturation on room air. Laboratory data reviewed, CBC unremarkable, sodium 136, potassium 3.9, creatinine 0.69 and magnesium 2. Echocardiogram obtained reveals preserved LV systolic function with ejection fraction 50-55%. PHYSICAL EXAMINATION Blood pressure 133/78 heart rate 74 afebrile and maintaining oxygen saturation on room air. CONSTITUTIONAL: No apparent distress. HEENT: Head is normocephalic. Pupils are equal, round. Sclerae anicteric. Mucous membranes of the mouth are moist. No JVD. No carotid bruit. CHEST EXAMINATION: Lungs are clear to auscultation. No chest wall tenderness is noted on palpation or with deep breathing. HEART EXAMINATION: Regular rate and rhythm. S1, S2 heard. No murmurs, gallops or rub. EXTREMITIES: 2+ peripheral pulses, no lower extremity edema and no calf tenderness. Right femoral access site soft, non-tender, no ecchymosis or hematoma. ASSESSMENT Unstable angina Non-ST elevated myocardial infarction Dyslipidemia Chronic nicotine dependence PLAN Importance of dual antiplatelet therapy discussed in detail with the patient. Initiate lisinopril 2.5 mg daily. Continue beta jorge and atorvastatin as previously ordered. Appropriate cardiac medications have been sent to the patient's pharmacy. Smoking cessation highly recommended. Follow-up in the office with Dr. Green next week. Hemodynamically stable from a cardiac perspective for discharge. Nurse Practitioner note has been reviewed, I agree with a documented findings and plan of care. Patient was seen and examined. Objective - Vital Signs Vital signs: Vital Signs Temp 97.1 F L 12/25/20 09:02 Pulse 75 12/25/20 09:02 Resp 16 12/25/20 09:02 BP 128/75 12/25/20 09:02 Pulse Ox 98 12/25/20 09:02 Intake & Output 12/24/20 12/25/20 12/25/20 18:59 06:59 18:59 Intake Total 964 240 180 Output Total 500 Balance 464 240 180 Weight 95 kg 95.5 kg Intake: IV 234 Intake, IV Titration 150 Amount Sodium Chloride 0.9% 1, 150 000 ml @ 75 mls/hr IV . [id number] [facility] Rx#:[id number] Oral 580 240 180 Output: Urine 500 Other: Voiding Method Toilet # Voids 1 2 - Labs CBC & Chem 7: 12/25/20 07:34 12/25/20 07:34 Labs: Abnormal Lab Results - Last 24 Hours (Table) 12/24/20 12/25/20 Range/Units 21:49 07:34 Sodium 121 L 136 L (137-145) mmol/L Chloride 108 H 109 H (98-107) mmol/L Glucose 106 H 105 H (74-99) mg/dL
--- NOTE | 2020-12-25 15:28 | CONS ---
CONSULTATION REASON FOR CONSULT: Hyponatremia. HISTORY OF PRESENT ILLNESS: The patient is a 50-year-old female who was admitted to the hospital on 12/23 with complaints of chest pain. She was found to have an acute AK. She did have cardiac catheterization and coronary stent placement on 12/24/2020. Currently patient has no ongoing chest pain. She states she is feeling better. Patient was noted to have a sodium of 121 yesterday evening, which was a drop from 137 the day before. Patient has been maintained on saline. Creatinine is staying at 0.7 to 0.6 mg/dL. Patient has been maintained on normal saline since yesterday. She denies any new numbness, tingling, nausea, vomiting. Serum sodium again this morning is up to 136. PAST MEDICAL HISTORY: Past medical history is only Crohn's disease. PAST SURGICAL HISTORY: Appendectomy, bariatric surgery, bowel resection, cholecystectomy, hernia repair, tubal ligation, lap band procedure. SOCIAL HISTORY: Positive for smoking and marijuana use. MEDICATIONS: Medications at home prior to admission include multivitamins. ALLERGIES: ALLERGIES include CODEINE, HYDROCODONE, COMPAZINE, REMICADE. REVIEW OF SYSTEMS: As per HPI. PHYSICAL EXAMINATION: Patient is comfortable, awake, alert, oriented x3, not in any acute distress. Blood pressure 128/75, heart rate 75 per minute. She is afebrile. EXAMINATION OF THE HEART: S1 and S2. EXAMINATION OF LUNGS: Bilateral breath sounds are heard. ABDOMEN: Soft, non-tender. Examination of lower extremities shows no evidence of edema. SUPERVISOR HARVESTING exam is grossly intact. LABS: Labs show sodium of 136 today, serum creatinine 0.6, chloride 109, potassium 3.9. ASSESSMENT: 1. Hyponatremia, most likely a lab error from last night. Patient has been maintained on the same IV fluids and her sodium is back up to 136 today. She is advised to maintain good oral protein intake and avoid excessive free water intake. Patient can be discharged. We can repeat labs as outpatient in 3-4 days post discharge. 2. Status post acute pbq-AF-bdrkrnfhy myocardial infarction, status post cardiac catheterization and coronary stent placement x2. 3. History of Crohn's disease. PLAN: Patient can be discharged. Follow up with repeat labs to be done as outpatient in 3-4 days' time. MMODL / IJN: [id number] /
--- NOTE | 2020-12-25 23:16 | P.DS ---
Providers Date of admission: 12/24/20 10:49 Attending physician: iWllie Gastelum Consults: 12/23/20 13:41 Consult Physician Routine Consulting Provider: Delta Munoz Consult Reason/Comments: CP Do you want consulting provider notified?: Yes 12/23/20 13:42 Consult Physician Routine Consulting Provider: Brice Best Consult Reason/Comments: cp Do you want consulting provider notified?: Yes 12/24/20 11:07 Consult Physician Routine Consulting Provider: [facility] Consult Reason/Comments: Post Interventional patient Do you want consulting provider notified?: Already Contacted 12/24/20 22:48 Consult Physician Routine Consulting Provider: Stefani Crespo Consult Reason/Comments: Na 121 Do you want consulting provider notified?: Yes, Notify in am Primary care physician: Audi Marte [facility] Course: Diagnoses: None STEMI status post cardiac cath and stent placement of the right coronary artery 2 Hospital course: This is a pleasant 50 years old female with multiple medical problems presents because of substernal chest pain radiating to the jaw of 2 hours duration. Patient found to have elevated troponin and non-ST elevation myocardial infarction, patient has been evaluated by pipe setter and patient underwent cardiac cath with PCI/stent placement of the right coronary arteries 2. After the procedure patient feeling well with no chest pain or dyspnea. No dizziness or palpitation or not other complaints. Patient hemodynamically stable, leukocytosis came back to normal. Patient is started on aspirin and effient and importance of adherence to treatment explained Patient was cleared by cardiology team for discharge Problems and management plan were discussed with the patient and he verbalized understanding and acceptance Patient was found stable and can be discharged home however he needs follow-up as an outpatient. Patient was instructed to follow up with PCP Dr. Marte within one week and patient agrees. Patient also was instructed to follow up with pipe setter Dr. Fisher in 1-2 weeks and she agrees for staff to make her appointments. Physical exam Gen: patient is a AAOx3, no distress CVS: S1-S2, RRR, no murmur Lungs: B/L CTA, no wheezing Abdomen: soft, no distention, no tenderness, positive bowel sounds Extremity: no leg edema or induration Time spent more than 35 minutes Patient Condition at Discharge: Stable Plan - Discharge Summary Discharge Rx Participant: No New Discharge Prescriptions: New Aspirin 81 mg PO DAILY chew Prasugrel [Effient] 10 mg PO DAILY #90 tab Atorvastatin [Lipitor] 80 mg PO HS #90 tab Metoprolol Tartrate [Lopressor] 25 mg PO BID #180 tab Nitroglycerin Sl Tabs [Nitrostat] 0.4 mg SUBLINGUAL Q5M PRN #30 tab PRN Reason: Chest Pain Acetaminophen Tab [Tylenol] 650 mg PO Q6HR PRN tab PRN Reason: Fever And/ Or Pain lisinopriL [Zestril] 2.5 mg PO DAILY #90 tab Continue Multivitamins, Thera [Multivitamin (formulary)] 1 tab PO DAILY Omeprazole Magnesium [PriLOSEC OTC] 20 mg PO DAILY Discharge Medication List Multivitamins, Thera [Multivitamin (formulary)] 1 tab PO DAILY 12/23/20 [History] Omeprazole Magnesium [PriLOSEC OTC] 20 mg PO DAILY 12/23/20 [History] Acetaminophen Tab [Tylenol] 650 mg PO Q6HR PRN tab 12/25/20 [Rx] Aspirin 81 mg PO DAILY chew 12/25/20 [Rx] Atorvastatin [Lipitor] 80 mg PO HS #90 tab 12/25/20 [Rx] Metoprolol Tartrate [Lopressor] 25 mg PO BID #180 tab 12/25/20 [Rx] Nitroglycerin Sl Tabs [Nitrostat] 0.4 mg SUBLINGUAL Q5M PRN #30 tab 12/25/20 [Rx] Prasugrel [Effient] 10 mg PO DAILY #90 tab 12/25/20 [Rx] lisinopriL [Zestril] 2.5 mg PO DAILY #90 tab 12/25/20 [Rx] Follow up Appointment(s)/Referral(s): [facility] [NON-STAFF] - (After discharge, you will follow-up with your pipe setter. Once you have obtained a prescription for cardiac rehab, please call [phone] to set up an evaluation.) Audi Marte DO [Primary Care Provider] - 12/31/20 3:20 pm (With Ricarda in [place] office.) Pito Green MD [STAFF PHYSICIAN] - 01/01/21 2:45 pm Patient Instructions/Handouts: *Surgery [facility] - After Heart Catheterization - Stone Cleaner Instructions, Heart Healthy Diet (DC), Safe Use of Antiplatelet Medication (DC), Coronary Intravascular Stent Placement (DC) Activity/Diet/Wound Care/Special Instructions: Heart healthy diet Activity is restricted till you see your doctor CARDIAC CATH 1. Support your puncture site by applying firm, steady pressure whenever you cough, laugh, sneeze or bear down to have a bowel movement (2-day restriction). 2. Watch for any excessive bruising, active bleeding, a firm knot forming under your skin, extreme tenderness and signs of infection (redness, swelling, fever). 3. Shower daily, do not soak puncture in a tub bath, jacuzzi, pool, champagne etc. for 1 week. This is to prevent risk of infection. 4. Drink plenty of fluids the day of and day after your procedure to flush contrast dye out of your kidneys. 5. Take all medications as directed. Never stop any new medication without your physicians OK. 6. No driving for 2 days after procedure. 7. 10- pound weight lifting restriction for 1 week. 8. Low sodium/low fat diet. 9. Activity limited until follow up appointment with your pipe setter. In case of any problems, please call [facility] [place] @ [phone]. Nitro faxed to [facility] with other prescriptions. Discharge Disposition: HOME SELF-CARE
[2020-12-26] MEDS ORDERED: PRASUGREL 10 MG TAB PO SCH (09:00)
== END 2020-12-25 12:09 | disposition home or self-care (01) | DRG 247 ==
LOC: EC 11:36 → 6NMEDSUR 13:41 → 3SCARD 19:11 → OBSVTOIN 12-24 10:49
PROVIDERS: ADMIT Hospitalist; ATTEND Hospitalist
PROC: B2111ZZ Fluoroscopy of Multiple Coronary Arteries using Low Osmolar Contrast (ICD-10-PCS; 2020-12-24)
PROC: 027035Z Dilation of Coronary Artery, One Artery with Two Drug-eluting Intraluminal Devices, Percutaneous Approach (ICD-10-PCS; principal; 2020-12-24 11:45)
PROC: 4A023N7 Measurement of Cardiac Sampling and Pressure, Left Heart, Percutaneous Approach (ICD-10-PCS; 2020-12-24 11:45)
DX: I21.4 Non-ST elevation (NSTEMI) myocardial infarction (principal); K50.90 Crohn's disease, unspecified, without complications; E87.1 Hypo-osmolality and hyponatremia; I25.110 Atherosclerotic heart disease of native coronary artery with unstable angina pectoris; E83.52 Hypercalcemia; Z98.84 Bariatric surgery status; Z90.49 Acquired absence of other specified parts of digestive tract; F17.200 Nicotine dependence, unspecified, uncomplicated; E78.5 Hyperlipidemia, unspecified; Z88.5 Allergy status to narcotic agent; Z82.49 Family history of ischemic heart disease and other diseases of the circulatory system
CPT/HCPCS: 36415; 71046; 80048; 80053; 80061; 83690; 83735; 84484; 85025; 85027; 85379; 85610; 85730; 86140; 87635; 93005; 93306; 93458; 96374; 96375; 99285

== ENCOUNTER 2020-12-30 10:43 | Observation (INO) | payer BC ==
[2020-12-30] MEDS ORDERED: ASPIRIN 81 MG PO STA (11:07)
[2020-12-30] MEDS ORDERED: NITROGLYCERIN OINT 1 INCH/GM PACKET TOPICAL STA (11:07)
[2020-12-30] MEDS ORDERED: LORazepam 2 MG/ML INJ IV STA (11:11)
--- NOTE | 2020-12-30 11:14 | ED ---
General Adult HPI - General Chief complaint: Chest Pain Stated complaint: Chest Pain, SOB Time Seen by Provider: 12/30/20 10:50 Source: patient, RN notes reviewed, old records reviewed Mode of arrival: ambulatory Limitations: no limitations - History of Present Illness Initial comments: This a 50-year-old female with past medical history significant for smoking and high cholesterol. Patient states one week ago she had 2 stents placed in our facility for chest pain. Patient states today she went for a short walk and had similar symptoms that brought her in last week. Patient states she started having chest discomfort and shortness of breath and the discomfort radiated to her jaw on the left side. Patient states she got home took 2 nitroglycerin the second one seemed to help her pain but did not remove it completely however currently she is chest pain-free. Patient states now she is expressing quite a bit of anxiety because of this potential heart attack symptoms. Patient denies any abdominal pain patient denies nausea vomiting or diarrhea. Patient denies any fever chills or cough. Patient denies any headache patient denies numbness weakness - Related Data Home Medications Medication Instructions Recorded Confirmed Multivitamins, Thera [Multivitamin 1 tab PO DAILY 12/23/20 12/23/20 (formulary)] Omeprazole Magnesium [PriLOSEC OTC] 20 mg PO DAILY 12/23/20 12/23/20 Previous Rx's Medication Instructions Recorded Acetaminophen Tab [Tylenol] 650 mg PO Q6HR PRN tab 12/25/20 Aspirin 81 mg PO DAILY chew 12/25/20 Atorvastatin [Lipitor] 80 mg PO HS #90 tab 12/25/20 Metoprolol Tartrate [Lopressor] 25 mg PO BID #180 tab 12/25/20 Nitroglycerin Sl Tabs [Nitrostat] 0.4 mg SUBLINGUAL Q5M PRN #30 tab 12/25/20 Prasugrel [Effient] 10 mg PO DAILY #90 tab 12/25/20 lisinopriL [Zestril] 2.5 mg PO DAILY #90 tab 12/25/20 Allergies Allergy/AdvReac Type Severity Reaction Status Date / Time codeine Allergy Rash/Hives Verified 12/30/20 10:53 hydrocodone Allergy Rash/Hives Verified 12/30/20 10:53 infliximab [From Remicade] Allergy bronchospas Verified 12/30/20 10:53 ms/hives ondansetron HCl AdvReac seizure Verified 12/30/20 10:53 [From Zofran (as like hydrochloride)] activity prochlorperazine AdvReac "looked Verified 12/30/20 10:53 [From Compazine] like a seizure" prochlorperazine edisylate AdvReac "looked Verified 12/30/20 10:53 [From Compazine] like a seizure" prochlorperazine maleate AdvReac "looked Verified 12/30/20 10:53 [From Compazine] like a seizure" Review of Systems ROS Statement: Those systems with pertinent positive or pertinent negative responses have been documented in the HPI. ROS Other: All systems not noted in ROS Statement are negative. Past Medical History Past Medical History: Heart Failure Additional Past Medical History / Comment(s): Chrohns Disease. History of Any Multi-Drug Resistant Organisms: None Reported Past Surgical History: Appendectomy, Bariatric Surgery, Bowel Resection, Cholecystectomy, Heart Catheterization With Stent, Hernia Repair, Tubal Ligation Additional Past Surgical History / Comment(s): LAP BAND, Bowel resection x2 (2001 most recent) Past Anesthesia/Blood Transfusion Reactions: Motion Sickness Past Psychological History: No Psychological Hx Reported Smoking Status: Former smoker Past Alcohol Use History: None Reported Past Drug Use History: None Reported - Past Family History Mother Family Medical History: Hyperlipidemia, Hypertension Additional Family Medical History / Comment(s): Heart has an "extra beat", still living. Father Family Medical History: Coronary Artery Disease (CAD), Hyperlipidemia, Hypertension Additional Family Medical History / Comment(s): Has a "bad valve" believes mitral. Still living. General Exam - General Exam Comments Initial Comments: GENERAL: Patient is well-developed and well-nourished. Patient is nontoxic and well- hydrated and is in mild distress. ENT: Neck is soft and supple. No significant lymphadenopathy is noted. Oropharynx is clear. Moist mucous membranes. Neck has full range of motion without eliciting any pain. EYES: The sclera were anicteric and conjunctiva were pink and moist. Extraocular movements were intact and pupils were equal round and reactive to light. Eyelids were unremarkable. PULMONARY: Unlabored respirations. Good breath sounds bilaterally. No audible rales rhonchi or wheezing was noted. CARDIOVASCULAR: There is a regular rate and rhythm without any murmurs gallops or rubs. ABDOMEN: Soft and nontender with normal bowel sounds. SKIN: Skin is clear with no lesions or rashes and otherwise unremarkable. NEUROLOGIC: Patient is alert and oriented x3. Cranial nerves II through XII are grossly intact. Motor and sensory are also intact. Normal speech, volume and content. Symmetrical smile. MUSCULOSKELETAL: Normal extremities with adequate strength and full range of motion. No lower extremity swelling or edema. No calf tenderness. LYMPHATICS: No significant lymphadenopathy is noted PSYCHIATRIC: Patient is mildly anxious Limitations: no limitations Course Vital Signs 12/30/20 10:50 Temperature 97.9 F Pulse Rate 66 Respiratory 18 Rate Blood Pressure 109/78 O2 Sat by Pulse 100 Oximetry Medical Decision Making - Medical Decision Making EKG shows sinus bradycardia 55 bpm [place] interval is 140 QRS is 88 QT interval is 404 QTC is 386. Patient's EKG shows T-wave inversions in leads [address] segment elevation or depression or noted. Disposition Referrals: Audi Marte DO [Primary Care Provider] - 1-2 days
[2020-12-30 11:27] LABS: Basophils # (A) 0.1 k/uL (0-0.2); Basophils % (A) 1 %; Eosinophils # (A) 0.2 k/uL (0-0.7); Eosinophils % (A) 3 %; HCT 38.5 % (34.0-46.0); HGB 12.5 gm/dL (11.4-16.0); Lymphocytes # (A) 1.1 k/uL (1.0-4.8); Lymphocytes % (A) 16 %; MCH 29.4 pg (25.0-35.0); MCHC 32.5 g/dL (31.0-37.0); MCV 90.6 fL (80.0-100.0); Mean Platelet Volume 7.5; Monocytes # (A) 0.3 k/uL (0-1.0); Monocytes % (A) 4 %; Neutrophils # (A) 5.1 k/uL (1.3-7.7); Neutrophils % (A) 74 %; Platelet Count 259 k/uL (150-450); RBC 4.25 m/uL (3.80-5.40); RDW 12.9 % (11.5-15.5); WBC 6.9 k/uL (3.8-10.6)
[2020-12-30 11:37] LABS: INR 0.9 (<1.2); Partial Thromboplastin Time 22.5 sec (22.0-30.0); Prothrombin Time 9.7 sec (9.0-12.0)
[2020-12-30 11:39] LABS: ALT 24 U/L (4-34); AST 26 U/L (14-36); African American GFR (CKD) >90 (>60 ml/min/1.73 sqM); Albumin 4.1 g/dL (3.5-5.0); Alkaline Phosphatase 86 U/L (38-126); Anion Gap 7 mmol/L; Blood Urea Nitrogen 10 mg/dL (7-17); Calcium 9.6 mg/dL (8.4-10.2); Carbon Dioxide 23 mmol/L (22-30); Chloride 110 mmol/L (98-107); Glucose 110 mg/dL (74-99); Magnesium 1.8 mg/dL (1.6-2.3); Non-African American GFR(CKD) 82 (>60 ml/min/1.73 sqM); Sodium 140 mmol/L (137-145); Total Bilirubin 0.9 mg/dL (0.2-1.3); Total Protein 6.6 g/dL (6.3-8.2)
--- NOTE | 2020-12-30 11:40 | XR ---
EXAMINATION TYPE: XR chest 2V DATE OF EXAM: 12/30/2020 COMPARISON: Chest x-ray one week ago. HISTORY: Chest pain and pressure. TECHNIQUE: Frontal and lateral views of the chest are obtained. FINDINGS: There is no new suspicious focal air space opacity, pleural effusion, or pneumothorax seen . The cardiac silhouette size remains within normal limits. Overlying EKG leads redemonstrated. Th e osseous structures are intact. Low positioned lap band device is redemonstrated. IMPRESSION: No acute process. No significant change from prior.
[2020-12-30] MEDS ORDERED: HEPARIN SODIUM 1,000 UN/ML (10ML VL) IV STA (12:11)
[2020-12-30] MEDS ORDERED: HEPARIN SOD,PORK IN 0.45% NACL 25,000 UNIT in 0.45% NACL 1 250ML.BAG IV SCH (12:15)
[2020-12-30] MEDS ORDERED: NITROGLYCERIN SL TABS 0.4 MG TAB SUBLINGUAL PRN (12:15)
[2020-12-30] MEDS: NITROGLYCERIN OINT 1 INCH/GM PACKET TOPICAL SCH ×2 (17:58→23:37)
[2020-12-30] MEDS ORDERED: ACETAMINOPHEN TAB 325 MG TAB PO PRN (20:18)
[2020-12-30] MEDS: LORazepam 0.5 MG TAB PO PRN (21:16)
[2020-12-30] MEDS: ATORVASTATIN 80 MG TAB PO SCH (21:17)
[2020-12-30] MEDS: SIMETHICONE 80 MG CHEWABLE PO PRN (21:46)
[2020-12-30] MEDS: METOPROLOL TARTRATE 25 MG TAB PO SCH (21:47)
[2020-12-31] MEDS: SIMETHICONE 80 MG CHEWABLE PO PRN ×2 (03:05→11:43)
[2020-12-31] MEDS: NITROGLYCERIN OINT 1 INCH/GM PACKET TOPICAL SCH (05:22)
[2020-12-31] MEDS: MULTIVITAMINS, THERA 1 EACH TAB PO SCH (08:45)
[2020-12-31] MEDS: ASPIRIN 81 MG PO SCH (08:45)
[2020-12-31] MEDS: PANTOPRAZOLE 40 MG TABLET PO SCH (08:45)
[2020-12-31] MEDS: METOPROLOL TARTRATE 25 MG TAB PO SCH ×2 (08:45→20:15)
[2020-12-31] MEDS ORDERED: ASPIRIN 325 MG TAB PO SCH (09:00)
[2020-12-31] MEDS: LORazepam 0.5 MG TAB PO PRN (11:43)
--- NOTE | 2020-12-31 12:24 | P.CRDCN ---
History of Present Illness Consult date: 12/31/20 History of present illness: HISTORY OF PRESENT ILLNESS: This is a 50-year-old female with a past medical history significant for hypertension, nicotine dependence, and coronary artery disease with recent PCI to distal and mid RCA. Patient follows in the office with Dr. Green. We have been asked to see the patient in consultation for chest pain. Patient examined at the bedside. Patient underwent cardiac catheterization on 12/24/2020 with PCI to the distal RCA and mid RCA. Patient states yesterday she was walking outside to check on her Kayley pushes. On the way walking back to her house she was walking uphill and began having some chest tightness that radiated to her jaw. Patient states she went inside of her house and sat down. Patient states she began to have significant anxiety because this was similar symptoms to last week when she had a heart attack. Patient states that she took a sublingual nitro which did relieve her pain. She presented to the hospital for further evaluation. Patient did receive some IV Ativan and has had no further complaints of chest pain since that time. Patient states she has been compliant with her medications. Patient also reports she did quit smoking since being discharged last week. EKG reveals sinus mechanism with T-wave inversions in lead 3 and aVF. Previous EKG revealed T-wave inversions in lead 3. Chest xray negative for acute process Laboratory data: WBC 6.9. Hemoglobin 12.5. Platelet count 259. Sodium 140. Potassium 4.0. BUN 10. Creatinine 0.83. BNP 200. Troponin 0.098. 0.079. 0.079. Previous troponin last week peaked at 0.590. Current home cardiac medications include aspirin 81 mg, Lipitor 80 mg daily, metoprolol tartrate 25 mg twice a day, lisinopril 2.5 mg daily, and Effient 10 mg daily Most recent echocardiogram obtained in December 2020 revealed ejection fraction 50- 55% Cardiac catheterization history: 12/24/[address] Green. Patient underwent PCI to distal RCA and mid RCA. Patient was also found to have [id number] atherosclerotic plaque in the midportion of the LAD. REVIEW OF SYSTEMS: At the time of my exam: CONSTITUTIONAL: Denies fever or chills. HEENT: Denies blurred vision, vision changes, or eye pain. Denies hemoptysis CARDIOVASCULAR: Denies chest pain. Denies orthopnea. Denies PND. Denies palpita tions RESPIRATORY: Denies shortness of breath. GASTROINTESTINAL: Denies abdominal pain. Denies nausea or vomiting. HEMATOLOGIC: Denies bleeding disorders. GENITOURINARY: Denies any blood in urine. SKIN: Denies pruitis. Denies rash. PHYSICAL EXAM: VITAL SIGNS: Reviewed. GENERAL: Well-developed in no acute distress. HEENT: Head is normocephalic. Pupils are equal, round. Sclerae anicteric. Mucous membranes of the mouth are moist. Neck supple. No JVD or thyromegaly LUNGS: Respirations even and unlabored. Lungs essentially clear to auscultation bilaterally. HEART: Regular rate and rhythm. S1 and S2 heard. ABDOMEN: Soft. Nondistended. Nontender. EXTREMITIES: Normal range of motion. No clubbing or cyanosis. Peripheral pulses intact. No lower extremity edema NEUROLOGIC: Awake and alert. Oriented x 3. ASSESSMENT: Chest pain Coronary artery disease with recent PCI to RCA x 2 Abnormal troponins, trending down from NSTEMI last week Hypertension Hyperlipidemia Former nicotine dependence PLAN: An acute coronary event has been ruled out Obtain limited echo to assess for pericardial effusion Continue IV heparin and Nitropaste Resume home cardiac medications Continue dual antiplatelet therapy with aspirin and Effient Further recommendations pending patient course Nurse practitioner note has been reviewed by physician. Signing provider agrees with the documented findings, assessment, and plan of care. Past Medical History Past Medical History: Heart Failure, Myocardial Infarction ([place]) Additional Past Medical History / Comment(s): Chrohns Disease. Last Myocardial Infarction Date:: 12/23/2020 History of Any Multi-Drug Resistant Organisms: None Reported Past Surgical History: Appendectomy, Bariatric Surgery, Bowel Resection, Cholecystectomy, Heart Catheterization With Stent, Hernia Repair, Tubal Ligation Additional Past Surgical History / Comment(s): LAP BAND, Bowel resection x2 (2001 most recent) Past Anesthesia/Blood Transfusion Reactions: Motion Sickness Date of Last Stent Placement:: 12/24/2020 Past Psychological History: No Psychological Hx Reported Smoking Status: Former smoker Past Alcohol Use History: None Reported Additional Past Alcohol Use History / Comment(s): SMOKES 1/2 A PPD, STARTED AT AGE 11 (1981) Past Drug Use History: None Reported Additional Drug Use History / Comment(s): 1/4 pack/day as of 03/24/2016 - Past Family History Mother Family Medical History: Hyperlipidemia, Hypertension Additional Family Medical History / Comment(s): Heart has an "extra beat", still living. Father Family Medical History: Coronary Artery Disease (CAD), Hyperlipidemia, Hypertension Additional Family Medical History / Comment(s): Has a "bad valve" believes mitral. Still living. Medications and Allergies Home Medications Medication Instructions Recorded Confirmed Type Multivitamins, Thera [Multivitamin 1 tab PO DAILY 12/23/20 12/30/20 History (formulary)] Omeprazole Magnesium [PriLOSEC OTC] 20 mg PO DAILY 12/23/20 12/30/20 History Acetaminophen Tab [Tylenol] 650 mg PO Q6HR PRN tab 12/25/20 12/30/20 Rx Aspirin 81 mg PO DAILY chew 12/25/20 12/30/20 Rx Atorvastatin [Lipitor] 80 mg PO HS #90 tab 12/25/20 12/30/20 Rx Metoprolol Tartrate [Lopressor] 25 mg PO BID #180 tab 12/25/20 12/30/20 Rx Nitroglycerin Sl Tabs [Nitrostat] 0.4 mg SUBLINGUAL Q5M PRN #30 tab 12/25/20 12/30/20 Rx Prasugrel [Effient] 10 mg PO DAILY #90 tab 12/25/20 12/30/20 Rx lisinopriL [Zestril] 2.5 mg PO DAILY #90 tab 12/25/20 12/30/20 Rx Allergies Allergy/AdvReac Type Severity Reaction Status Date / Time codeine Allergy Rash/Hives Verified 12/30/20 11:33 hydrocodone Allergy Rash/Hives Verified 12/30/20 11:33 infliximab [From Remicade] Allergy bronchospas Verified 12/30/20 11:33 ms/hives ondansetron HCl AdvReac seizure Verified 12/30/20 11:33 [From Zofran (as like hydrochloride)] activity prochlorperazine AdvReac "looked Verified 12/30/20 11:33 [From Compazine] like a seizure" prochlorperazine edisylate AdvReac "looked Verified 12/30/20 11:33 [From Compazine] like a seizure" prochlorperazine maleate AdvReac "looked Verified 12/30/20 11:33 [From Compazine] like a seizure" Physical Exam Vitals: Vital Signs Temp Pulse Pulse Resp BP BP Pulse Ox 12/31/20 08:00 98.3 F 73 18 105/64 99 12/31/20 04:00 98.1 F 62 18 95/60 95 12/30/20 23:57 98.4 F 60 16 93/52 97 12/30/20 19:29 98.5 F 60 18 102/67 98 12/30/20 16:30 60 16 108/70 99 12/30/20 15:00 98 F 59 L 16 93/63 98 12/30/20 14:00 64 16 95/62 94 L 12/30/20 13:00 56 L 15 100/63 99 12/30/20 12:48 55 L 16 100/63 99 Intake and Output 12/30/20 12/31/20 12/31/20 22:59 06:59 14:59 Intake Total 326.167 114.167 Balance 326.167 114.167 Intake: Intake, IV Titration 86.167 114.167 Amount Heparin Sod,Pork in 0.45% 86.167 114.167 NaCl 25,000 unit In 0.45 % NaCl 1 250ml.bag @ 10. 65 UNITS/KG/HR 10 mls/hr IV .Q24H [facility] Rx#: [id number] Oral 240 Other: Voiding Method Toilet Toilet # Voids 1 2 Weight 93.894 kg Results 12/30/20 11:17 12/30/20 11:17 Cardiac Enzymes 12/30/20 12/30/20 Range/Units 12:41 15:03 Troponin I 0.079 H* 0.079 H* (0.000-0.034) ng/mL Coagulation 12/30/20 12/31/20 Range/Units 19:06 07:12 APTT 44.3 H 38.2 H (22.0-30.0) sec Current Medications Generic Name Dose Route Start Last Admin Trade Name Freq PRN Reason Stop Dose Admin Acetaminophen 650 mg 12/30/20 20:18 Acetaminophen Tab 325 Mg Tab PO Q6HR PRN Fever and/ or Pain Aspirin 81 mg 12/31/20 09:00 12/31/20 08:45 Aspirin 81 Mg PO 81 mg DAILY MAKAYLA Administration Atorvastatin Calcium 80 mg 12/30/20 21:00 12/30/20 21:17 Atorvastatin 80 Mg Tab PO 80 mg HS MAKAYLA Administration Lisinopril 2.5 mg 12/30/20 20:30 12/31/20 08:45 Lisinopril 2.5 Mg Tab PO 2.5 mg DAILY MAKAYLA Administration Lorazepam 0.5 mg 12/30/20 20:56 12/31/20 11:43 Lorazepam 0.5 Mg Tab PO 0.5 mg Q8HR PRN Administration Anxiety Metoprolol Tartrate 25 mg 12/30/20 21:00 12/31/20 08:45 Metoprolol Tartrate 25 Mg Tab PO 25 mg BID MAKAYLA Administration Multivitamins 1 each 12/31/20 09:00 12/31/20 08:45 Multivitamins, Thera 1 Each Tab PO 1 each DAILY MAKAYLA Administration Nitroglycerin 0.4 mg 12/30/20 12:15 Nitroglycerin Sl Tabs 0.4 Mg Tab SUBLINGUAL Q5M PRN Chest Pain Pantoprazole Sodium 40 mg 12/31/20 09:00 12/31/20 08:45 Pantoprazole 40 Mg Tablet PO 40 mg DAILY MAKAYLA Administration Simethicone 40 mg 12/30/20 20:54 12/31/20 11:43 Simethicone 80 Mg Chewable PO 40 mg QID PRN Administration Indigestion Intake and Output 12/30/20 12/31/20 12/31/20 22:59 06:59 14:59 Intake Total 326.167 114.167 Balance 326.167 114.167 Intake: Intake, IV Titration 86.167 114.167 Amount Heparin Sod,Pork in 0.45% 86.167 114.167 NaCl 25,000 unit In 0.45 % NaCl 1 250ml.bag @ 10. 65 UNITS/KG/HR 10 mls/hr IV .Q24H [facility] Rx#: [id number] Oral 240 Other: Voiding Method Toilet Toilet # Voids 1 2 Weight 93.894 kg 12/30/20 11:17 12/30/20 11:17
--- NOTE | 2020-12-31 14:33 | P.HPIM ---
History of Present Illness 50-year-old the [employer] came in with complaints of chest tightness radiating to the left arm.. Patient received sublingual nitro which relieved his pain any similar pain when he when he had myocardial infarction and stent to RCA. Patient does have alcohol abuse history patient is on alcohol withdrawal protocol initially patient says he drinks 2 beers and later on admitted that he drinks about 10 beers a day brings on most days of the week. Patient doesn't believe he'll have withdrawals. Patient denied any fever chills nausea vomiting diarrhea. Found have mild elevation of troponins to around 0.079 EKG showed sinus bradycardia. Review of Systems REVIEW OF SYSTEMS: CONSTITUTIONAL: No fever, no malaise, no fatigue. HEENT: No recent visual problems or hearing problems. Denied any sore throat. CARDIOVASCULAR: No orthopnea, PND, no palpitations, no syncope. PULMONARY: No shortness of breath, no cough, no hemoptysis. GASTROINTESTINAL: No diarrhea, no nausea, no vomiting, no abdominal pain. NEUROLOGICAL: No headaches, no weakness, no numbness. HEMATOLOGICAL: Denies any bleeding or petechiae. GENITOURINARY: Denies any burning micturition, frequency, or urgency. MUSCULOSKELETAL/RHEUMATOLOGICAL: Denies any joint pain, swelling, or any muscle pain. ENDOCRINE: Denies any polyuria or polydipsia. The rest of the 14-point review of systems is negative. Past Medical History Past Medical History: Heart Failure, Myocardial Infarction ([place]) Additional Past Medical History / Comment(s): Chrohns Disease. Last Myocardial Infarction Date:: 12/23/2020 History of Any Multi-Drug Resistant Organisms: None Reported Past Surgical History: Appendectomy, Bariatric Surgery, Bowel Resection, Cholecystectomy, Heart Catheterization With Stent, Hernia Repair, Tubal Ligation Additional Past Surgical History / Comment(s): LAP BAND, Bowel resection x2 (2001 most recent) Past Anesthesia/Blood Transfusion Reactions: Motion Sickness Date of Last Stent Placement:: 12/24/2020 Past Psychological History: No Psychological Hx Reported Smoking Status: Former smoker Past Alcohol Use History: None Reported Additional Past Alcohol Use History / Comment(s): SMOKES 1/2 A PPD, STARTED AT AGE 11 (1981) Past Drug Use History: None Reported Additional Drug Use History / Comment(s): 1/4 pack/day as of 03/24/2016 - Past Family History Mother Family Medical History: Hyperlipidemia, Hypertension Additional Family Medical History / Comment(s): Heart has an "extra beat", still living. Father Family Medical History: Coronary Artery Disease (CAD), Hyperlipidemia, Hypertension Additional Family Medical History / Comment(s): Has a "bad valve" believes mitral. Still living. Medications and Allergies Home Medications Medication Instructions Recorded Confirmed Type Multivitamins, Thera [Multivitamin 1 tab PO DAILY 12/23/20 12/30/20 History (formulary)] Omeprazole Magnesium [PriLOSEC OTC] 20 mg PO DAILY 12/23/20 12/30/20 History Acetaminophen Tab [Tylenol] 650 mg PO Q6HR PRN tab 12/25/20 12/30/20 Rx Aspirin 81 mg PO DAILY chew 12/25/20 12/30/20 Rx Atorvastatin [Lipitor] 80 mg PO HS #90 tab 12/25/20 12/30/20 Rx Metoprolol Tartrate [Lopressor] 25 mg PO BID #180 tab 12/25/20 12/30/20 Rx Nitroglycerin Sl Tabs [Nitrostat] 0.4 mg SUBLINGUAL Q5M PRN #30 tab 12/25/20 12/30/20 Rx Prasugrel [Effient] 10 mg PO DAILY #90 tab 12/25/20 12/30/20 Rx lisinopriL [Zestril] 2.5 mg PO DAILY #90 tab 12/25/20 12/30/20 Rx Allergies Allergy/AdvReac Type Severity Reaction Status Date / Time codeine Allergy Rash/Hives Verified 12/30/20 11:33 hydrocodone Allergy Rash/Hives Verified 12/30/20 11:33 infliximab [From Remicade] Allergy bronchospas Verified 12/30/20 11:33 ms/hives ondansetron HCl AdvReac seizure Verified 12/30/20 11:33 [From Zofran (as like hydrochloride)] activity prochlorperazine AdvReac "looked Verified 12/30/20 11:33 [From Compazine] like a seizure" prochlorperazine edisylate AdvReac "looked Verified 12/30/20 11:33 [From Compazine] like a seizure" prochlorperazine maleate AdvReac "looked Verified 12/30/20 11:33 [From Compazine] like a seizure" Physical Exam Vitals: Vital Signs Temp Pulse Pulse Resp BP BP Pulse Ox 12/31/20 12:15 99 12/31/20 12:00 69 18 106/58 98 12/31/20 08:00 98.3 F 73 18 105/64 99 12/31/20 04:00 98.1 F 62 18 95/60 95 12/30/20 23:57 98.4 F 60 16 93/52 97 12/30/20 19:29 98.5 F 60 18 102/67 98 12/30/20 16:30 60 16 108/70 99 12/30/20 15:00 98 F 59 L 16 93/63 98 Intake and Output 12/30/20 12/31/20 12/31/20 22:59 06:59 14:59 Intake Total 338.990 2029.167 Output Total 400 Balance 326.167 614.167 Intake: Intake, IV Titration 86.167 114.167 Amount Heparin Sod,Pork in 0.45% 86.167 114.167 NaCl 25,000 unit In 0.45 % NaCl 1 250ml.bag @ 10. 65 UNITS/KG/HR 10 mls/hr IV .Q24H [facility] Rx#: [id number] Oral 240 900 Output: Urine 400 Other: Voiding Method Toilet Toilet # Voids 1 2 Weight 93.894 kg PHYSICAL EXAMINATION: GENERAL: The patient is alert and oriented x3, not in any acute distress. Well developed, well nourished. HEENT: Pupils are round and equally reacting to light. EOMI. No scleral icterus. No conjunctival pallor. Normocephalic, atraumatic. No pharyngeal erythema. No thyromegaly. CARDIOVASCULAR: S1 and S2 present. No murmurs, rubs, or gallops. PULMONARY: Chest is clear to auscultation, no wheezing or crackles. ABDOMEN: Soft, nontender, nondistended, normoactive bowel sounds. No palpable organomegaly. MUSCULOSKELETAL: No joint swelling or deformity. EXTREMITIES: No cyanosis, clubbing, or pedal edema. NEUROLOGICAL: Gross neurological examination did not reveal any focal deficits. SKIN: No rashes. Results CBC & Chem 7: 12/30/20 11:17 12/30/20 11:17 Labs: Abnormal Lab Results - Last 24 Hours (Table) 12/30/20 12/30/20 12/31/20 Range/Units 15:03 19:06 07:12 APTT 44.3 H 38.2 H (22.0-30.0) sec Troponin I 0.079 H* (0.000-0.034) ng/mL Thrombosis Risk Factor Assmnt - Choose All That Apply Each Factor Represents 1 point: Age 41-60 years Thrombosis Risk Factor Assessment Total Risk Factor Score: 1 Thrombosis Risk Factor Assessment Level: Low Risk Assessment and Plan Plan: 1 chest pain with mildly elevated troponins troponins are not and off for the same myocardial infarction patient was evaluated by cardiology. Ruled out acute current syndromes -Alcohol abuse -Alcohol withdrawal: Patient will be on Ativan seemed to be a protocol -Hypertension -Hyperlipidemia
[2020-12-31 14:37] LABS: Chol/HDL Ratio 2.54; LDL Cholesterol,Calculated 68.8 mg/dL (0.0-131.0); VLDL Calculation 19.2 mg/dL (5.00-40.00)
--- NOTE | 2020-12-31 14:37 | P.HPIM ---
History of Present Illness 50-year-old the [employer] came in with complaints of chest tightness radiating to the left arm.. Patient received sublingual nitro which relieved his pain any similar pain when he when he had myocardial infarction and stent to RCA. . Patient denied any fever chills nausea vomiting diarrhea. Found have mild elevation of troponins to around 0.079 EKG showed sinus bradycardia. Patient was also having some abdominal discomfort from her lap band. Review of Systems REVIEW OF SYSTEMS: CONSTITUTIONAL: No fever, no malaise, no fatigue. HEENT: No recent visual problems or hearing problems. Denied any sore throat. CARDIOVASCULAR: No orthopnea, PND, no palpitations, no syncope. PULMONARY: No shortness of breath, no cough, no hemoptysis. GASTROINTESTINAL: No diarrhea, no nausea, no vomiting, no abdominal pain. NEUROLOGICAL: No headaches, no weakness, no numbness. HEMATOLOGICAL: Denies any bleeding or petechiae. GENITOURINARY: Denies any burning micturition, frequency, or urgency. MUSCULOSKELETAL/RHEUMATOLOGICAL: Denies any joint pain, swelling, or any muscle pain. ENDOCRINE: Denies any polyuria or polydipsia. The rest of the 14-point review of systems is negative. Past Medical History Past Medical History: Heart Failure, Myocardial Infarction ([place]) Additional Past Medical History / Comment(s): Chrohns Disease. Last Myocardial Infarction Date:: 12/23/2020 History of Any Multi-Drug Resistant Organisms: None Reported Past Surgical History: Appendectomy, Bariatric Surgery, Bowel Resection, Cholecystectomy, Heart Catheterization With Stent, Hernia Repair, Tubal Ligation Additional Past Surgical History / Comment(s): LAP BAND, Bowel resection x2 (2001 most recent) Past Anesthesia/Blood Transfusion Reactions: Motion Sickness Date of Last Stent Placement:: 12/24/2020 Past Psychological History: No Psychological Hx Reported Smoking Status: Former smoker Past Alcohol Use History: None Reported Additional Past Alcohol Use History / Comment(s): SMOKES 1/2 A PPD, STARTED AT AGE 11 (1981) Past Drug Use History: None Reported Additional Drug Use History / Comment(s): 1/4 pack/day as of 03/24/2016 - Past Family History Mother Family Medical History: Hyperlipidemia, Hypertension Additional Family Medical History / Comment(s): Heart has an "extra beat", still living. Father Family Medical History: Coronary Artery Disease (CAD), Hyperlipidemia, Hypertension Additional Family Medical History / Comment(s): Has a "bad valve" believes mitral. Still living. Medications and Allergies Home Medications Medication Instructions Recorded Confirmed Type Multivitamins, Thera [Multivitamin 1 tab PO DAILY 12/23/20 12/30/20 History (formulary)] Omeprazole Magnesium [PriLOSEC OTC] 20 mg PO DAILY 12/23/20 12/30/20 History Acetaminophen Tab [Tylenol] 650 mg PO Q6HR PRN tab 12/25/20 12/30/20 Rx Aspirin 81 mg PO DAILY chew 12/25/20 12/30/20 Rx Atorvastatin [Lipitor] 80 mg PO HS #90 tab 12/25/20 12/30/20 Rx Metoprolol Tartrate [Lopressor] 25 mg PO BID #180 tab 12/25/20 12/30/20 Rx Nitroglycerin Sl Tabs [Nitrostat] 0.4 mg SUBLINGUAL Q5M PRN #30 tab 12/25/20 12/30/20 Rx Prasugrel [Effient] 10 mg PO DAILY #90 tab 12/25/20 12/30/20 Rx lisinopriL [Zestril] 2.5 mg PO DAILY #90 tab 12/25/20 12/30/20 Rx Allergies Allergy/AdvReac Type Severity Reaction Status Date / Time codeine Allergy Rash/Hives Verified 12/30/20 11:33 hydrocodone Allergy Rash/Hives Verified 12/30/20 11:33 infliximab [From Remicade] Allergy bronchospas Verified 12/30/20 11:33 ms/hives ondansetron HCl AdvReac seizure Verified 12/30/20 11:33 [From Zofran (as like hydrochloride)] activity prochlorperazine AdvReac "looked Verified 12/30/20 11:33 [From Compazine] like a seizure" prochlorperazine edisylate AdvReac "looked Verified 12/30/20 11:33 [From Compazine] like a seizure" prochlorperazine maleate AdvReac "looked Verified 12/30/20 11:33 [From Compazine] like a seizure" Physical Exam Vitals: Vital Signs Temp Pulse Pulse Resp BP BP Pulse Ox 12/31/20 12:15 99 12/31/20 12:00 69 18 106/58 98 12/31/20 08:00 98.3 F 73 18 105/64 99 12/31/20 04:00 98.1 F 62 18 95/60 95 12/30/20 23:57 98.4 F 60 16 93/52 97 12/30/20 19:29 98.5 F 60 18 102/67 98 12/30/20 16:30 60 16 108/70 99 12/30/20 15:00 98 F 59 L 16 93/63 98 Intake and Output 12/30/20 12/31/20 12/31/20 22:59 06:59 14:59 Intake Total 541.459 2052.167 Output Total 400 Balance 326.167 614.167 Intake: Intake, IV Titration 86.167 114.167 Amount Heparin Sod,Pork in 0.45% 86.167 114.167 NaCl 25,000 unit In 0.45 % NaCl 1 250ml.bag @ 10. 65 UNITS/KG/HR 10 mls/hr IV .Q24H [facility] Rx#: [id number] Oral 240 900 Output: Urine 400 Other: Voiding Method Toilet Toilet # Voids 1 2 Weight 93.894 kg PHYSICAL EXAMINATION: GENERAL: The patient is alert and oriented x3, not in any acute distress. Well developed, well nourished. HEENT: Pupils are round and equally reacting to light. EOMI. No scleral icterus. No conjunctival pallor. Normocephalic, atraumatic. No pharyngeal erythema. No thyromegaly. CARDIOVASCULAR: S1 and S2 present. No murmurs, rubs, or gallops. PULMONARY: Chest is clear to auscultation, no wheezing or crackles. ABDOMEN: Soft, nontender, nondistended, normoactive bowel sounds. No palpable organomegaly. MUSCULOSKELETAL: No joint swelling or deformity. EXTREMITIES: No cyanosis, clubbing, or pedal edema. NEUROLOGICAL: Gross neurological examination did not reveal any focal deficits. SKIN: No rashes. Results CBC & Chem 7: 12/30/20 11:17 12/30/20 11:17 Labs: Abnormal Lab Results - Last 24 Hours (Table) 12/30/20 12/30/20 12/31/20 Range/Units 15:03 19:06 07:12 APTT 44.3 H 38.2 H (22.0-30.0) sec Troponin I 0.079 H* (0.000-0.034) ng/mL Thrombosis Risk Factor Assmnt - Choose All That Apply Each Factor Represents 1 point: Age 41-60 years Thrombosis Risk Factor Assessment Total Risk Factor Score: 1 Thrombosis Risk Factor Assessment Level: Low Risk Assessment and Plan Plan: 1 chest pain with mildly elevated troponins troponins are not and off for the same myocardial infarction patient was evaluated by cardiology. Ruled out acute current syndromes -Abdominal pain: Abdominal discomfort is from her lap band general surgery will evaluate the patient -Hypertension -Hyperlipidemia
--- NOTE | 2020-12-31 15:29 | P.GSCN ---
History of Present Illness Consult date: 12/31/20 History of present illness: CHIEF COMPLAINT: Abdominal pain HISTORY OF PRESENT ILLNESS: This is a 50-year-old female who was recently hospitalized last week for non-ST elevated myocardial infarction and had undergone heart catheterization with stent placement she is on aspirin and Effient at home. She returns back to the hospital with complaints of more of left upper abdominal pain. She states that she has pain where her port was placed. She has been having vomiting after eating. She reports after eating solid foods she feels a gas builds up and then she will vomit a little while after eating. She denies any dysphagia. But does report an uncomfortable full ness after eating. She denies any chest pain. She is having bowel movements. And has been afebrile. Her surgical history contained flat than with left and port replacement in 2016. Also history of bowel resection, cholecystectomy and hernia repair. Surgical consult was placed for removal of fluid from her lap band. PAST MEDICAL HISTORY: See list. PAST SURGICAL HISTORY: See list. MEDICATIONS: See list. ALLERGIES: See list. SOCIAL HISTORY: No illicit drug use. REVIEW OF SYSTEMS: CONSTITUTIONAL: Denies fever or chills. HEENT: Denies blurred vision, vision changes, or eye pain. Denies hemoptysis CARDIOVASCULAR: Denies chest pain or pressure. RESPIRATORY: No shortness of breath. GASTROINTESTINAL: See HPI for pertinent findings HEMATOLOGIC: Denies bleeding disorders. GENITOURINARY: Denies any blood in urine or increased urinary frequency. SKIN: Denies pruitis. Denies rash. PHYSICAL EXAM: VITAL SIGNS: Reviewed GENERAL: Well-developed in no acute distress. HEENT: No sclera icterus. Extraocular movements grossly intact. Moist buccal mucosa. Head is atraumatic, normocephalic. No nasal drainage. ABDOMEN: Soft. Nondistended. Tenderness with palpation of the area around her port. NEUROLOGIC: Alert and oriented. Cranial nerves II through XII grossly intact. LABORATORY DATA: WBC 6.9 hemoglobin is 12.5 platelets are 259 INR 0.9 creatinine 0.83 LFTs normal Troponin mildly elevated at 0.098, 0.079 and 0.079 IMAGING: Chest x-ray no acute process ASSESSMENT: 1. Abdominal pain with vomiting after eating 2. History of lap band port replacement in 2016 PLAN: -10 cc of fluid removed from lap band by Dr. Best -Patient can be started on a heart healthy diet -Patient is stable for discharge from surgical standpoint Thank you for this consultation [employer] note has been reviewed by physician. Signing provider agrees with the documented findings, assessment, and plan of care. Past Medical History Past Medical History: Heart Failure, Myocardial Infarction ([place]) Additional Past Medical History / Comment(s): Chrohns Disease. Last Myocardial Infarction Date:: 12/23/2020 History of Any Multi-Drug Resistant Organisms: None Reported Past Surgical History: Appendectomy, Bariatric Surgery, Bowel Resection, Cholecystectomy, Heart Catheterization With Stent, Hernia Repair, Tubal Ligation Additional Past Surgical History / Comment(s): LAP BAND, Bowel resection x2 (2001 most recent) Past Anesthesia/Blood Transfusion Reactions: Motion Sickness Date of Last Stent Placement:: 12/24/2020 Past Psychological History: No Psychological Hx Reported Smoking Status: Former smoker Past Alcohol Use History: None Reported Additional Past Alcohol Use History / Comment(s): SMOKES 1/2 A PPD, STARTED AT AGE 11 (1981) Past Drug Use History: None Reported Additional Drug Use History / Comment(s): 1/4 pack/day as of 03/24/2016 - Past Family History Mother Family Medical History: Hyperlipidemia, Hypertension Additional Family Medical History / Comment(s): Heart has an "extra beat", still living. Father Family Medical History: Coronary Artery Disease (CAD), Hyperlipidemia, Hypertension Additional Family Medical History / Comment(s): Has a "bad valve" believes mitral. Still living. Medications and Allergies Home Medications Medication Instructions Recorded Confirmed Type Multivitamins, Thera [Multivitamin 1 tab PO DAILY 12/23/20 12/30/20 History (formulary)] Omeprazole Magnesium [PriLOSEC OTC] 20 mg PO DAILY 12/23/20 12/30/20 History Acetaminophen Tab [Tylenol] 650 mg PO Q6HR PRN tab 12/25/20 12/30/20 Rx Aspirin 81 mg PO DAILY chew 12/25/20 12/30/20 Rx Atorvastatin [Lipitor] 80 mg PO HS #90 tab 12/25/20 12/30/20 Rx Metoprolol Tartrate [Lopressor] 25 mg PO BID #180 tab 12/25/20 12/30/20 Rx Nitroglycerin Sl Tabs [Nitrostat] 0.4 mg SUBLINGUAL Q5M PRN #30 tab 12/25/20 12/30/20 Rx Prasugrel [Effient] 10 mg PO DAILY #90 tab 12/25/20 12/30/20 Rx lisinopriL [Zestril] 2.5 mg PO DAILY #90 tab 12/25/20 12/30/20 Rx Allergies Allergy/AdvReac Type Severity Reaction Status Date / Time codeine Allergy Rash/Hives Verified 12/30/20 11:33 hydrocodone Allergy Rash/Hives Verified 12/30/20 11:33 infliximab [From Remicade] Allergy bronchospas Verified 12/30/20 11:33 ms/hives ondansetron HCl AdvReac seizure Verified 12/30/20 11:33 [From Zofran (as like hydrochloride)] activity prochlorperazine AdvReac "looked Verified 12/30/20 11:33 [From Compazine] like a seizure" prochlorperazine edisylate AdvReac "looked Verified 12/30/20 11:33 [From Compazine] like a seizure" prochlorperazine maleate AdvReac "looked Verified 12/30/20 11:33 [From Compazine] like a seizure" Surgical - Exam Vital Signs Temp Pulse Resp BP Pulse Ox 97.9 F 66 18 109/78 100 12/30/20 10:50 12/30/20 10:50 12/30/20 10:50 12/30/20 10:50 12/30/20 10:50 Results - Labs 12/30/20 11:17 12/30/20 11:17 Abnormal Lab Results - Last 24 Hours (Table) 12/30/20 12/30/20 12/30/20 Range/Units 11:17 12:41 15:03 APTT (22.0-30.0) sec Troponin I 0.098 H* 0.079 H* 0.079 H* (0.000-0.034) ng/mL 12/30/20 12/31/20 Range/Units 19:06 07:12 APTT 44.3 H 38.2 H (22.0-30.0) sec Troponin I (0.000-0.034) ng/mL
--- NOTE | 2020-12-31 16:12 | P.OP ---
Date of Procedure: 12/31/20 Preoperative Diagnosis: Dysphagia Postoperative Diagnosis: Dysphagia Procedure(s) Performed: Emptying of LAP-BAND Anesthesia: none Surgeon: Brice Best Pathology: none sent Condition: stable Description of Procedure: The patient's placed on her bed in supine position. Her skin was cleaned with rubbing alcohol. The LAP-BAND port was accessed with a Reed needle. The LAP- BAND was then emptied 10 mL removed from her LAP-BAND. Patient top procedure well.
--- NOTE | 2020-12-31 16:59 | ECHOF ---
Referral Reason:chest pain, rule out effusion MEASUREMENTS -------- HEIGHT: 157.5 cm WEIGHT: 93.9 kg BP: 106/85 FINDINGS -------- Sinus rhythm. Limited Study Overall left ventricular systolic function is normal with, an EF between 60 - 65 %. There is no pericardial effusion. CONCLUSIONS -------- 1. Limited Study 2. Overall left ventricular systolic function is normal with, an EF between 60 - 65 %. 3. There is no pericardial effusion. SEARCH ENGINE OPTIMIZER: Tsering Alvarado, KANDICECS
[2020-12-31] MEDS: PRASUGREL 10 MG TAB PO SCH (18:38)
[2020-12-31] MEDS: ATORVASTATIN 80 MG TAB PO SCH (20:15)
[2020-12-31 21:22] VITALS: TEMP 98.7
[2021-01-01 06:25] VITALS: PULSE 70; RESP 17
[2021-01-01] MEDS: METOPROLOL TARTRATE 25 MG TAB PO SCH (08:27)
[2021-01-01] MEDS: ASPIRIN 81 MG PO SCH (08:27)
[2021-01-01] MEDS: MULTIVITAMINS, THERA 1 EACH TAB PO SCH (08:27)
[2021-01-01] MEDS: PRASUGREL 10 MG TAB PO SCH (08:27)
[2021-01-01] MEDS: PANTOPRAZOLE 40 MG TABLET PO SCH (08:27)
[2021-01-01] MEDS ORDERED: ENOXAPARIN 40 MG/0.4 ML SYRINGE SQ SCH (09:00)
[2021-01-01 10:41] VITALS: BP 101/67
--- NOTE | 2021-01-01 11:39 | P.PN ---
Subjective Progress Note Date: 01/01/21 CHIEF COMPLAINT: Abdominal pain HISTORY OF PRESENT ILLNESS: Surgical service is following regards to patient's history of lap band and recent abdominal pain with vomiting after eating. She is status post 10 mL fluid removal from her lap band. Patient is tolerating diet. No further evidence of vomiting. Afebrile. PHYSICAL EXAM: VITAL SIGNS: Reviewed. GENERAL: Well-developed in no acute distress. HEENT: No sclera icterus. Extraocular movements grossly intact. Moist buccal mucosa. Head is atraumatic, normocephalic. ABDOMEN: Soft. Nondistended. Nontender. NEUROLOGIC: Alert and oriented. Cranial nerves II through XII grossly intact. ASSESSMENT: 1. Abdominal pain with vomiting after eating patient is status post 10 mL fluid removal from lap band port by Dr. carr at bedside yesterday 2. Dysphagia 3. History of lap band port replacement 2015 PLAN: -Continue heart healthy diet -Patient is stable from surgical standpoint for discharge -Have patient follow-up in office in one week Physician Manager Internal note has been reviewed by physician. Signing provider agrees with the documented findings, assessment, and plan of care. Objective - Vital Signs Vital signs: Vital Signs Temp 98.7 F 01/01/21 08:00 Pulse 70 01/01/21 08:00 Resp 17 01/01/21 08:00 BP 101/67 01/01/21 08:00 Pulse Ox 97 01/01/21 08:00 Intake & Output 12/31/20 01/01/21 01/01/21 18:59 06:59 18:59 Intake Total 1014.167 240 Output Total 400 Balance 614.167 240 Intake: Intake, IV Titration 114.167 Amount Heparin Sod,Pork in 0.45% 114.167 NaCl 25,000 unit In 0.45 % NaCl 1 250ml.bag @ 10. 65 UNITS/KG/HR 10 mls/hr IV .Q24H [facility] Rx#: [id number] Oral 900 240 Output: Urine 400 Other: Voiding Method Toilet # Voids 2 - Labs CBC & Chem 7: 12/30/20 11:17 12/30/20 11:17
--- NOTE | 2021-01-01 11:53 | P.DS ---
Providers Date of admission: 12/30/20 12:15 Attending physician: Adelaide Barrientos Consults: 12/30/20 12:15 Consult Physician Urgent Consulting Provider: [facility] Consult Reason/Comments: Unstable angina Do you want consulting provider notified?: Yes 12/31/20 09:58 Consult Physician Urgent Consulting Provider: Brice Best Consult Reason/Comments: remove water from lap band Do you want consulting provider notified?: Already Contacted [facility] Course: 50-year-old the [employer] came in with complaints of chest tightness radiating to the left arm.. Patient received sublingual nitro which relieved his pain any similar pain when he when he had myocardial infarction and stent to RCA. . Patient denied any fever chills nausea vomiting diarrhea. Found have mild elevation of troponins to around 0.079 EKG showed sinus bradycardia. Patient was also having some abdominal discomfort from her lap band. 01/01/2021 Patient is clinically doing well doesn't have any chest pain anymore patient received are 2 days of IV heparin per cardiology evaluated the patient troponins is only minimally elevated not high enough to say acute myocardial infarction patient is cleared for discharge patient will be discharged today patient wishes low normal patient echo cardiac exam showed normal ejection fraction this no pleural will be discontinued. PHYSICAL EXAMINATION: GENERAL: The patient is alert and oriented x3, not in any acute distress. Well developed, well nourished. HEENT: Pupils are round and equally reacting to light. EOMI. No scleral icterus. No conjunctival pallor. Normocephalic, atraumatic. No pharyngeal erythema. No thyromegaly. CARDIOVASCULAR: S1 and S2 present. No murmurs, rubs, or gallops. PULMONARY: Chest is clear to auscultation, no wheezing or crackles. ABDOMEN: Soft, nontender, nondistended, normoactive bowel sounds. No palpable organomegaly. MUSCULOSKELETAL: No joint swelling or deformity. EXTREMITIES: No cyanosis, clubbing, or pedal edema. NEUROLOGICAL: Gross neurological examination did not reveal any focal deficits. SKIN: No rashes. Assessment and Plan Plan: 1 chest pain with mildly elevated troponins troponins are not high enough to say acute myocardial infarction, patient was evaluated by cardiology. Patient will be discharged today. -Abdominal pain: Abdominal discomfort am her lap band and 10 mL of fluid was removed from lap band. -Hypertension -Hyperlipidemia Patient Condition at Discharge: Serious Plan - Discharge Summary Discharge Rx Participant: No New Discharge Prescriptions: Discontinued lisinopriL [Zestril] 2.5 mg PO DAILY #90 tab No Action Multivitamins, Thera [Multivitamin (formulary)] 1 tab PO DAILY Aspirin 81 mg PO DAILY chew Prasugrel [Effient] 10 mg PO DAILY #90 tab Atorvastatin [Lipitor] 80 mg PO HS #90 tab Metoprolol Tartrate [Lopressor] 25 mg PO BID #180 tab Omeprazole Magnesium [PriLOSEC OTC] 20 mg PO DAILY Nitroglycerin Sl Tabs [Nitrostat] 0.4 mg SUBLINGUAL Q5M PRN #30 tab PRN Reason: Chest Pain Acetaminophen Tab [Tylenol] 650 mg PO Q6HR PRN tab PRN Reason: Fever And/ Or Pain Discharge Medication List Multivitamins, Thera [Multivitamin (formulary)] 1 tab PO DAILY 12/23/20 [History] Omeprazole Magnesium [PriLOSEC OTC] 20 mg PO DAILY 12/23/20 [History] Acetaminophen Tab [Tylenol] 650 mg PO Q6HR PRN tab 12/25/20 [Rx] Aspirin 81 mg PO DAILY chew 12/25/20 [Rx] Atorvastatin [Lipitor] 80 mg PO HS #90 tab 12/25/20 [Rx] Metoprolol Tartrate [Lopressor] 25 mg PO BID #180 tab 12/25/20 [Rx] Nitroglycerin Sl Tabs [Nitrostat] 0.4 mg SUBLINGUAL Q5M PRN #30 tab 12/25/20 [Rx] Prasugrel [Effient] 10 mg PO DAILY #90 tab 12/25/20 [Rx] Follow up Appointment(s)/Referral(s): Audi Marte DO [Primary Care Provider] - 3 Days Brice Best MD [STAFF PHYSICIAN] - 1 Week Discharge Disposition: HOME SELF-CARE
--- NOTE | 2021-01-01 11:54 | P.PN ---
Subjective This is a pleasant 50-year-old female past medical history significant for hypertension, coronary artery disease with recent PCI to the distal and mid RCA and former nicotine dependence. She follows the office with Dr. Green. She is seen and examined sitting up in the recliner in no acute distress. Yesterday she was evaluated by surgery and had 10 Mary also fluid removed from her lap band. She states she had instant relief of her chest discomfort. She has had no further chest pain since that time. Blood pressure 101/67 heart rate 70 afebrile maintaining oxygen saturation on room air. Laboratory data reviewed, LDL 68, HDL 57. A limited echo obtained reveals preserved LV systolic function with ejection fraction 60-65%. GENERAL: Well-appearing, well-nourished and in no acute distress. NECK: Supple without JVD or thyromegaly. LUNGS: Breath sounds clear to auscultation bilaterally. Respiration equal and unlabored. No wheezes, rales or rhonchi. HEART: Regular rate and rhythm without murmurs, rubs or gallops. S1 and S2 h eard. EXTREMITIES: Normal range of motion, no edema. No clubbing or cyanosis. Peripheral pulses intact. ASSESSMENT Chest pain, atypical Coronary artery disease status post recent PCI to the RCA Abnormal troponins trending down from NSTEMI last week Hypertension Dyslipidemia Former nicotine dependence PLAN Stable for discharge from a cardiac perspective. Follow up with Dr. Green has been rescheduled for next week. Nurse Practitioner note has been reviewed, I agree with a documented findings and plan of care. Patient was seen and examined. Objective - Vital Signs Vital signs: Vital Signs Temp 98.7 F 01/01/21 08:00 Pulse 70 01/01/21 08:00 Resp 17 01/01/21 08:00 BP 101/67 01/01/21 08:00 Pulse Ox 97 01/01/21 08:00 Intake & Output 12/31/20 01/01/21 01/01/21 18:59 06:59 18:59 Intake Total 1014.167 240 Output Total 400 Balance 614.167 240 Intake: Intake, IV Titration 114.167 Amount Heparin Sod,Pork in 0.45% 114.167 NaCl 25,000 unit In 0.45 % NaCl 1 250ml.bag @ 10. 65 UNITS/KG/HR 10 mls/hr IV .Q24H [facility] Rx#: [id number] Oral 900 240 Output: Urine 400 Other: Voiding Method Toilet # Voids 2 - Labs CBC & Chem 7: 12/30/20 11:17 12/30/20 11:17
== END 2021-01-01 13:12 | disposition home or self-care (01) ==
LOC: EC 10:43 → 3SCARD 12:15
PROVIDERS: ADMIT Internal Medicine; ATTEND Internal Medicine
DX: R07.89 Other chest pain (principal); I22.2 Subsequent non-ST elevation (NSTEMI) myocardial infarction; K95.09 Other complications of gastric band procedure; R10.12 Left upper quadrant pain; R11.10 Vomiting, unspecified; R13.10 Dysphagia, unspecified; I11.0 Hypertensive heart disease with heart failure; I50.9 Heart failure, unspecified; R79.89 Other specified abnormal findings of blood chemistry; F10.139 Alcohol abuse with withdrawal, unspecified; E78.00 Pure hypercholesterolemia, unspecified; F41.9 Anxiety disorder, unspecified; R00.1 Bradycardia, unspecified; K50.90 Crohn's disease, unspecified, without complications; Y83.1 Surgical operation with implant of artificial internal device as the cause of abnormal reaction of the patient, or of later complication, without mention of misadventure at the time of the procedure; Z20.822 Contact with and (suspected) exposure to COVID-19; E78.5 Hyperlipidemia, unspecified; Z79.82 Long term (current) use of aspirin; Z79.02 Long term (current) use of antithrombotics/antiplatelets; Z79.899 Other long term (current) drug therapy; Z98.84 Bariatric surgery status; Z88.5 Allergy status to narcotic agent; Z88.8 Allergy status to other drugs, medicaments and biological substances; Z87.891 Personal history of nicotine dependence; Z98.51 Tubal ligation status; Z90.49 Acquired absence of other specified parts of digestive tract; Z98.890 Other specified postprocedural states; Z82.49 Family history of ischemic heart disease and other diseases of the circulatory system; Z83.49 Family history of other endocrine, nutritional and metabolic diseases
CPT/HCPCS: 96366 ×3; 96372; 93005 ×2; 96365; 96375; 99285; 36415; 93308; 83880; 80061; 80053; 83735; 84484; 85025; 85610; 85730 ×2; 87635; 71046; G0378 ×3; J2060; J1650; J1644 ×2

== ENCOUNTER → 2021-01-21 | Outpatient (CLI) | payer BC ==
[2021-01-21 13:26] VITALS: BP 117/79; PULSE 63; RESP 18; TEMP 97.3; BMI 40.4
--- NOTE | 2021-02-28 13:02 | P.HPBAR ---
Bariatric H&P - History & Physicial H&P Date: 01/21/21 History & Physicial: Visit/CC: lap band follow up Patient initial contact: Initial weight: 101.831 kg Initial weight in pounds: 224.50 Height: 5 ft 2 in Initial BMI: 41.1 Last weight: Current weight: 100.153 kg Current weight in pounds: 220.80 Current BMI: 40.4 [place] body weight (based on NIH guidelines): 49.895 kg Excess body weight loss: 3.2% The patient is a 50 year-old F who presents for Bariatric Assessment. Patient presents today for LAP-BAND adjustment. She a fill. Past Medical History Past Medical History: Heart Failure Additional Past Medical History / Comment(s): Chrohns Disease. Last Myocardial Infarction Date:: 12/23/2020 History of Any Multi-Drug Resistant Organisms: None Reported Past Surgical History: Appendectomy, Bariatric Surgery, Bowel Resection, Cholecystectomy, Heart Catheterization With Stent, Hernia Repair, Tubal Ligation Additional Past Surgical History / Comment(s): LAP BAND, Bowel resection x2 (2001 most recent) Past Anesthesia/Blood Transfusion Reactions: Motion Sickness Date of Last Stent Placement:: 12/24/2020 Past Psychological History: No Psychological Hx Reported Smoking Status: Former smoker Past Alcohol Use History: None Reported Additional Past Alcohol Use History / Comment(s): SMOKES 1/2 A PPD, STARTED AT AGE 11 (1981) Past Drug Use History: None Reported Additional Drug Use History / Comment(s): 1/4 pack/day as of 03/24/2016 - Past Family History Mother Family Medical History: Hyperlipidemia, Hypertension Additional Family Medical History / Comment(s): Heart has an "extra beat", still living. Father Family Medical History: Coronary Artery Disease (CAD), Hyperlipidemia, Hypertension Additional Family Medical History / Comment(s): Has a "bad valve" believes mi tral. Still living. Surgical - Exam Vital Signs Temp Pulse Resp BP 97.3 F L 63 18 117/79 01/21/21 13:21 01/21/21 13:21 01/21/21 13:21 01/21/21 13:21 - General well developed, well nourished, no distress - Eyes PERRL - ENT normal pinna - Neck no masses - Respiratory normal expansion - Cardiovascular Rhythm: regular - Abdomen Abdomen: soft Bariatric Assessment & Plan Plan: Patient LAP-BAND system. She had 2 mL added to the band. She'll follow-up in 4 weeks. Bariatric Checklist Checklist: Plan: Checklist: EGD: 1. Hiatal hernia: 2. H. Pylori: HgbA1c: Vitamin D: Smoking: Current every day smoker Primary care physician referral: kim centeno Psychiatry clearance: Cardiology clearance: Sleep study: Diet journal: VTE risk score: VTE risk level: Rehab needs at discharge:
== END ==
LOC: BARWHC3 12:58
PROVIDERS: ATTEND Surgery
DX: Z46.51 Encounter for fitting and adjustment of gastric lap band (principal); Z98.84 Bariatric surgery status; Z87.891 Personal history of nicotine dependence; Z88.5 Allergy status to narcotic agent; Z88.8 Allergy status to other drugs, medicaments and biological substances
CPT/HCPCS: 99212

== ENCOUNTER → 2021-01-28 | Outpatient (CLI) | payer BC ==
[2021-01-28 15:04] LABS: Chol/HDL Ratio 2.65
== END | disposition home or self-care (01) ==
LOC: LABWHC1 08:31
PROVIDERS: ATTEND Internal Medicine Cardiovascular Disease
DX: E78.2 Mixed hyperlipidemia (principal)
CPT/HCPCS: 36415; 80061; 84450; 84460

== ENCOUNTER → 2021-03-04 | Outpatient (CLI) | payer BC ==
[2021-03-04 13:14] VITALS: BP 127/82; PULSE 70; RESP 18; TEMP 98; BMI 42.7
--- NOTE | 2021-03-04 15:13 | P.HPBAR ---
Bariatric H&P - History & Physicial H&P Date: 03/04/21 History & Physicial: Visit/CC: follow up Patient initial contact: Initial weight: 101.831 kg Initial weight in pounds: 224.50 Height: 5 ft 2 in Initial BMI: 41.1 Last weight: Current weight: 106.141 kg Current weight in pounds: 234.00 Current BMI: 42.7 [place] body weight (based on NIH guidelines): 49.895 kg Excess body weight loss: The patient is a 50 year-old F who presents for Bariatric Assessment. Patient presents today for lab band follow. She has some complaints of some mild hunger. She is requesting a fill. Past Medical History Past Medical History: Heart Failure Additional Past Medical History / Comment(s): Chrohns Disease. Last Myocardial Infarction Date:: 12/23/2020 History of Any Multi-Drug Resistant Organisms: None Reported Past Surgical History: Appendectomy, Bariatric Surgery, Bowel Resection, Cholecystectomy, Heart Catheterization With Stent, Hernia Repair, Tubal Ligation Additional Past Surgical History / Comment(s): LAP BAND, Bowel resection x2 (2001 most recent) Past Anesthesia/Blood Transfusion Reactions: Motion Sickness Date of Last Stent Placement:: 12/24/2020 Past Psychological History: No Psychological Hx Reported Smoking Status: Former smoker Past Alcohol Use History: None Reported Additional Past Alcohol Use History / Comment(s): SMOKES 1/2 A PPD, STARTED AT AGE 11 (1981) Past Drug Use History: None Reported Additional Drug Use History / Comment(s): 1/4 pack/day as of 03/24/2016 - Past Family History Mother Family Medical History: Hyperlipidemia, Hypertension Additional Family Medical History / Comment(s): Heart has an "extra beat", still living. Father Family Medical History: Coronary Artery Disease (CAD), Hyperlipidemia, Hypertension Additional Family Medical History / Comment(s): Has a "bad valve" believes mitral. Still living. Surgical - Exam Vital Signs Temp Pulse Resp BP 98 F 70 18 127/82 03/04/21 13:06 03/04/21 13:06 03/04/21 13:06 03/04/21 13:06 - General well developed, well nourished - Eyes PERRL - ENT normal pinna - Neck no masses - Respiratory normal expansion - Cardiovascular Rhythm: regular - Abdomen Abdomen: soft, non tender Bariatric Assessment & Plan Plan: Patient's lap band was adjusted. She had 1 mL added to the band. She currently has 3 mL in the band. She'll follow-up in 4 weeks. Bariatric Checklist Checklist: Plan: Checklist: EGD: 1. Hiatal hernia: 2. H. Pylori: HgbA1c: Vitamin D: Smoking: Current every day smoker Primary care physician referral: kim centeno Psychiatry clearance: Cardiology clearance: Sleep study: Diet journal: VTE risk score: VTE risk level: Rehab needs at discharge:
== END ==
LOC: BARWHC3 12:59
PROVIDERS: ATTEND Surgery
DX: Z46.51 Encounter for fitting and adjustment of gastric lap band (principal); Z98.84 Bariatric surgery status; Z87.891 Personal history of nicotine dependence; Z88.5 Allergy status to narcotic agent; Z88.8 Allergy status to other drugs, medicaments and biological substances
CPT/HCPCS: 99212

== ENCOUNTER → 2021-04-08 | Outpatient (CLI) | payer BC ==
[2021-04-08 13:18] VITALS: BP 137/86; PULSE 76; RESP 18; TEMP 98.7; BMI 44.9
--- NOTE | 2021-05-07 10:26 | P.HPBAR ---
Bariatric H&P - History & Physicial H&P Date: 04/08/21 History & Physicial: Visit/CC: follow up Patient initial contact: Initial weight: 101.831 kg Initial weight in pounds: 224.50 Height: 5 ft 2 in Initial BMI: 41.1 Last weight: Current weight: 111.266 kg Current weight in pounds: 245.30 Current BMI: 44.9 [place] body weight (based on NIH guidelines): 49.895 kg Excess body weight loss: The patient is a 50 year-old F who presents for Bariatric Assessment. The patient presents today for LAP-BAND follow-up. She is requesting a fill of her band. She currently feels hungry. Past Medical History Past Medical History: Heart Failure Additional Past Medical History / Comment(s): Chrohns Disease. Last Myocardial Infarction Date:: 12/23/2020 History of Any Multi-Drug Resistant Organisms: None Reported Past Surgical History: Appendectomy, Bariatric Surgery, Bowel Resection, Cholecystectomy, Heart Catheterization With Stent, Hernia Repair, Tubal Ligation Additional Past Surgical History / Comment(s): LAP BAND, Bowel resection x2 (2001 most recent) Past Anesthesia/Blood Transfusion Reactions: Motion Sickness Date of Last Stent Placement:: 12/24/2020 Smoking Status: Former smoker - Past Family History Mother Family Medical History: Hyperlipidemia, Hypertension Additional Family Medical History / Comment(s): Heart has an "extra beat", still living. Father Family Medical History: Coronary Artery Disease (CAD), Hyperlipidemia, Hypertension Additional Family Medical History / Comment(s): Has a "bad valve" believes mitral. Still living. Surgical - Exam Vital Signs Temp Pulse Resp BP 98.7 F 76 18 137/86 04/08/21 13:17 04/08/21 13:17 04/08/21 13:17 04/08/21 13:17 - General well developed, well nourished, no distress - Eyes PERRL - ENT normal pinna - Neck no masses - Respiratory normal expansion - Cardiovascular Rhythm: regular - Abdomen Abdomen: soft, non tender Bariatric Assessment & Plan Plan: Patient's lap band was adjusted. She'll 0.5 mL added to her band. She drinks 3.5 mL in the band. She'll follow-up in 4 weeks. Bariatric Checklist Checklist: Plan: Checklist: EGD: 1. Hiatal hernia: 2. H. Pylori: HgbA1c: Vitamin D: Smoking: Current every day smoker Primary care physician referral: kim cenetno Psychiatry clearance: Cardiology clearance: Sleep study: Diet journal: VTE risk score: VTE risk level: Rehab needs at discharge:
== END ==
LOC: BARWHC3 12:33
PROVIDERS: ATTEND Surgery
DX: Z46.51 Encounter for fitting and adjustment of gastric lap band (principal); I50.9 Heart failure, unspecified; Z87.891 Personal history of nicotine dependence; Z88.5 Allergy status to narcotic agent; Z88.8 Allergy status to other drugs, medicaments and biological substances
CPT/HCPCS: 99212

== ENCOUNTER → 2021-09-09 | Outpatient (CLI) | payer BC ==
--- NOTE | 2021-09-09 14:48 | P.HPBAR ---
Bariatric H&P - History & Physicial H&P Date: 09/09/21 History & Physicial: Visit/CC: Patient initial contact: Initial weight: 101.831 kg Initial weight in pounds: Height: Initial BMI: Last weight: 245 Current weight: 225 Current weight in pounds: Current BMI: [place] body weight (based on NIH guidelines): Excess body weight loss: The patient is a 51 year-old F who presents for Bariatric Assessment. Patient presents today for bariatric follow. She's requesting a fill her band. She currently feels very hungry. Past Medical History Past Medical History: Heart Failure Additional Past Medical History / Comment(s): Chrohns Disease. Last Myocardial Infarction Date:: 12/23/2020 History of Any Multi-Drug Resistant Organisms: None Reported Past Surgical History: Appendectomy, Bariatric Surgery, Bowel Resection, Cholecystectomy, Heart Catheterization With Stent, Hernia Repair, Tubal Ligation Additional Past Surgical History / Comment(s): LAP BAND, Bowel resection x2 (2001 most recent) Past Anesthesia/Blood Transfusion Reactions: Motion Sickness Date of Last Stent Placement:: 12/24/2020 Smoking Status: Former smoker - Past Family History Mother Family Medical History: Hyperlipidemia, Hypertension Additional Family Medical History / Comment(s): Heart has an "extra beat", still living. Father Family Medical History: Coronary Artery Disease (CAD), Hyperlipidemia, Hypertension Additional Family Medical History / Comment(s): Has a "bad valve" believes mitral. Still living. Surgical - Exam - General well developed, well nourished, no distress - Eyes PERRL - ENT normal pinna - Neck no masses - Respiratory normal expansion - Cardiovascular Rhythm: regular - Abdomen Abdomen: soft, non tender Bariatric Assessment & Plan Plan: Patient LAP-BAND was adjusted. She had her LAP-BAND adjustment. She has 0.5 mL added to the band. She currently has 2 mL in the band. Bariatric Checklist Checklist: Plan: Checklist: EGD: 1. Hiatal hernia: 2. H. Pylori: HgbA1c: Vitamin D: Smoking: Current every day smoker Primary care physician referral: kim centeno Psychiatry clearance: Cardiology clearance: Sleep study: Diet journal: VTE risk score: VTE risk level: Rehab needs at discharge:
[2021-09-09 15:21] VITALS: BP 130/80; PULSE 76; RESP 18; TEMP 97.7; BMI 50.3
== END ==
LOC: BARWHC3 13:57
PROVIDERS: ATTEND Surgery
DX: Z46.51 Encounter for fitting and adjustment of gastric lap band (principal); I50.9 Heart failure, unspecified; Z87.891 Personal history of nicotine dependence; Z98.84 Bariatric surgery status; Z88.5 Allergy status to narcotic agent; Z88.8 Allergy status to other drugs, medicaments and biological substances
CPT/HCPCS: 99211

== ENCOUNTER → 2021-10-07 | Outpatient (CLI) | payer BC ==
[2021-10-07 14:04] VITALS: BP 139/83; PULSE 80; RESP 16; TEMP 97.2; BMI 50.6
--- NOTE | 2021-10-14 15:19 | P.HPBAR ---
Bariatric H&P - History & Physicial H&P Date: 10/07/21 History & Physicial: Visit/CC: Band Adj Patient initial contact: Initial weight: 101.831 kg Initial weight in pounds: 224.50 Height: 5 ft 2 in Initial BMI: 41.1 Last weight: Current weight: 125.645 kg Current weight in pounds: 277.00 Current BMI: 50.6 [place] body weight (based on NIH guidelines): 49.895 kg Excess body weight loss: The patient is a 51 year-old F who presents for Bariatric Assessment. Patient presents today for Le follow-up. She is requesting a fill of her LAP-BAND. Denies any GERD and dysphagia. Past Medical History Past Medical History: Heart Failure Additional Past Medical History / Comment(s): Chrohns Disease. Last Myocardial Infarction Date:: 12/23/2020 History of Any Multi-Drug Resistant Organisms: None Reported Past Surgical History: Appendectomy, Bariatric Surgery, Bowel Resection, Cholecystectomy, Heart Catheterization With Stent, Hernia Repair, Tubal Ligation Additional Past Surgical History / Comment(s): LAP BAND, Bowel resection x2 (2001 most recent) Past Anesthesia/Blood Transfusion Reactions: Motion Sickness Date of Last Stent Placement:: 12/24/2020 Past Psychological History: No Psychological Hx Reported Smoking Status: Former smoker Past Alcohol Use History: None Reported Additional Past Alcohol Use History / Comment(s): SMOKES 1/2 A PPD, STARTED AT AGE 11 (1981) Past Drug Use History: None Reported Additional Drug Use History / Comment(s): 1/4 pack/day as of 03/24/2016 - Past Family History Mother Family Medical History: Hyperlipidemia, Hypertension Additional Family Medical History / Comment(s): Heart has an "extra beat", still living. Father Family Medical History: Coronary Artery Disease (CAD), Hyperlipidemia, Hypertension Additional Family Medical History / Comment(s): Has a "bad valve" believes mitral. Still living. Surgical - Exam Vital Signs Temp Pulse Resp BP 97.2 F L 80 16 139/83 10/07/21 14:02 10/07/21 14:02 10/07/21 14:02 10/07/21 14:02 - General well developed, well nourished, no distress - Eyes PERRL - ENT normal pinna - Neck no masses - Respiratory normal expansion - Cardiovascular Rhythm: regular - Abdomen Abdomen: soft, non tender Bariatric Assessment & Plan Plan: Morbid obesity. Patient LAP-BAND was adjusted. She had 0.5 mL added to the band. She is able to water to. She will follow-up in 4 weeks. Bariatric Checklist Checklist: Plan: Checklist: EGD: 1. Hiatal hernia: 2. H. Pylori: HgbA1c: Vitamin D: Smoking: Current every day smoker Primary care physician referral: kim centeno Psychiatry clearance: Cardiology clearance: Sleep study: Diet journal: VTE risk score: VTE risk level: Rehab needs at discharge:
== END ==
LOC: BARWHC3 13:50
PROVIDERS: ATTEND Surgery
DX: E66.01 Morbid (severe) obesity due to excess calories (principal); Z46.51 Encounter for fitting and adjustment of gastric lap band; I50.9 Heart failure, unspecified; F17.210 Nicotine dependence, cigarettes, uncomplicated; Z68.43 Body mass index [BMI] 50.0-59.9, adult; Z88.5 Allergy status to narcotic agent; Z88.8 Allergy status to other drugs, medicaments and biological substances
CPT/HCPCS: 99212

== ENCOUNTER → 2021-10-28 | Outpatient (CLI) | payer BC ==
[2021-10-28 14:08] VITALS: BP 131/86; PULSE 76; RESP 16; TEMP 98.3; BMI 49.9
--- NOTE | 2021-10-29 11:41 | P.HPBAR ---
Bariatric H&P - History & Physicial H&P Date: 10/28/21 History & Physicial: Visit/CC: lap band fill Patient initial contact: Initial weight: 101.831 kg Initial weight in pounds: 224.50 Height: 5 ft 2 in Initial BMI: 41.1 Last weight: Current weight: 123.831 kg Current weight in pounds: 273.00 Current BMI: 49.9 [place] body weight (based on NIH guidelines): 49.895 kg Excess body weight loss: The patient is a 51 year-old F who presents for Bariatric Assessment. Patient presents today for LAP-BAND adjustment. She currently feels hungry. She is requesting a fill. Past Medical History Past Medical History: Heart Failure Additional Past Medical History / Comment(s): Chrohns Disease. Last Myocardial Infarction Date:: 12/23/2020 History of Any Multi-Drug Resistant Organisms: None Reported Past Surgical History: Appendectomy, Bariatric Surgery, Bowel Resection, Cholecystectomy, Heart Catheterization With Stent, Hernia Repair, Tubal Ligation Additional Past Surgical History / Comment(s): LAP BAND, Bowel resection x2 (2001 most recent) Past Anesthesia/Blood Transfusion Reactions: Motion Sickness Date of Last Stent Placement:: 12/24/2020 Past Psychological History: No Psychological Hx Reported Smoking Status: Former smoker Past Alcohol Use History: None Reported Additional Past Alcohol Use History / Comment(s): SMOKES 1/2 A PPD, STARTED AT AGE 11 (1981) Past Drug Use History: None Reported Additional Drug Use History / Comment(s): 1/4 pack/day as of 03/24/2016 - Past Family History Mother Family Medical History: Hyperlipidemia, Hypertension Additional Family Medical History / Comment(s): Heart has an "extra beat", still living. Father Family Medical History: Coronary Artery Disease (CAD), Hyperlipidemia, Hypertension Additional Family Medical History / Comment(s): Has a "bad valve" believes mitral. Still living. Surgical - Exam Vital Signs Temp Pulse Resp BP 98.3 F 76 16 131/86 10/28/21 14:04 10/28/21 14:04 10/28/21 14:04 10/28/21 14:04 - General well developed, well nourished, no distress - Eyes PERRL - ENT normal pinna - Neck no masses - Respiratory normal expansion - Cardiovascular Rhythm: regular - Abdomen Abdomen: soft, non tender Bariatric Assessment & Plan Plan: Patient's LAP-BAND was adjusted. 0.5 mL added to the band. She currently is 4 mL in the band. She will follow-up in 4 weeks. Bariatric Checklist Checklist: Plan: Checklist: EGD: 1. Hiatal hernia: 2. H. Pylori: HgbA1c: Vitamin D: Smoking: Current every day smoker Primary care physician referral: kim centeno Psychiatry clearance: Cardiology clearance: Sleep study: Diet journal: VTE risk score: VTE risk level: Rehab needs at discharge:
== END ==
LOC: BARWHC3 13:17
PROVIDERS: ATTEND Surgery
DX: Z46.51 Encounter for fitting and adjustment of gastric lap band (principal); F17.210 Nicotine dependence, cigarettes, uncomplicated; Z88.5 Allergy status to narcotic agent; Z88.8 Allergy status to other drugs, medicaments and biological substances
CPT/HCPCS: 99212

== ENCOUNTER → 2022-01-13 | Outpatient (CLI) | payer BC ==
[2022-01-13 14:46] VITALS: BP 150/88; PULSE 70; TEMP 98; BMI 50.5
--- NOTE | 2022-01-13 15:58 | P.HPBAR ---
Bariatric H&P - History & Physicial H&P Date: 01/13/22 History & Physicial: Visit/CC: lap band f/u Patient initial contact: Initial weight: 101.831 kg Initial weight in pounds: 224.50 Height: 5 ft 2 in Initial BMI: 41.1 Last weight: Current weight: 125.191 kg Current weight in pounds: 276.00 Current BMI: 50.5 [place] body weight (based on NIH guidelines): 49.895 kg Excess body weight loss: The patient is a 51 year-old F who presents for Bariatric Assessment. Patient is hungry requesting a fill of her band. She's had some weight gain. Past Medical History Past Medical History: Heart Failure Additional Past Medical History / Comment(s): Chrohns Disease. Last Myocardial Infarction Date:: 12/23/2020 History of Any Multi-Drug Resistant Organisms: None Reported Past Surgical History: Appendectomy, Bariatric Surgery, Bowel Resection, Cholecystectomy, Heart Catheterization With Stent, Hernia Repair, Tubal Ligation Additional Past Surgical History / Comment(s): LAP BAND, Bowel resection x2 (2001 most recent) Past Anesthesia/Blood Transfusion Reactions: Motion Sickness Date of Last Stent Placement:: 12/24/2020 Past Psychological History: No Psychological Hx Reported Smoking Status: Former smoker Past Alcohol Use History: None Reported Additional Past Alcohol Use History / Comment(s): SMOKES 1/2 A PPD, STARTED AT AGE 11 (1981) Past Drug Use History: None Reported Additional Drug Use History / Comment(s): 1/4 pack/day as of 03/24/2016 - Past Family History Mother Family Medical History: Hyperlipidemia, Hypertension Additional Family Medical History / Comment(s): Heart has an "extra beat", still living. Father Family Medical History: Coronary Artery Disease (CAD), Hyperlipidemia, Hypertension Additional Family Medical History / Comment(s): Has a "bad valve" believes mitral. Still living. Surgical - Exam Vital Signs Temp Pulse BP 98 F 70 150/88 01/13/22 14:42 01/13/22 14:42 01/13/22 14:42 - General well developed, well nourished - Eyes PERRL - Abdomen Abdomen: soft, non tender Bariatric Assessment & Plan Plan: Patient LAP-BAND was found have a malfunctioning LAP-BAND port. Patient was scheduled for laparoscopic replacement of LAP-BAND port were conversion to sl eeve gastrectomy due to her LAP-BAND port function. We will attempt to obtain insurance authorization for conversion sleeve gastrectomy. Bariatric Checklist Checklist: Plan: Checklist: EGD: 1. Hiatal hernia: 2. H. Pylori: HgbA1c: Vitamin D: Smoking: Current every day smoker Primary care physician referral: kim centeno Psychiatry clearance: Cardiology clearance: Sleep study: Diet journal: VTE risk score: VTE risk level: Rehab needs at discharge:
== END ==
LOC: BARWHC3 13:51
PROVIDERS: ATTEND Surgery
DX: Z09 Encounter for follow-up examination after completed treatment for conditions other than malignant neoplasm (principal); Z98.84 Bariatric surgery status; F17.210 Nicotine dependence, cigarettes, uncomplicated; Z88.5 Allergy status to narcotic agent; Z88.8 Allergy status to other drugs, medicaments and biological substances
CPT/HCPCS: 99212

== ENCOUNTER 2022-04-10 08:45 | Day surgery (SDC) | payer BC ==
[2022-04-08 14:53] VITALS: BMI 50.3
[~2022-04-10 08:45] MED LIST: LACTATED RINGERS 1,000 ML IV SCH; LIDOCAINE 1% (10MG/ML) FOR IV START INTRADERMA PRN
[2022-04-10 09:21] VITALS: TEMP 97.2
--- NOTE | 2022-04-10 10:08 | P.GSHP ---
History of Present Illness H&P Date: 04/10/22 Chief Complaint: GERD This a 51-year-old female presents today for EGD. She's had issues with GERD. Past Medical History Past Medical History: Coronary Artery Disease (CAD), GERD/Reflux, Hypertension, Myocardial Infarction ([place]) Additional Past Medical History / Comment(s): Chrohns Disease., hx pancreatitis x2, has lap band-pt states "ruptured" Last Myocardial Infarction Date:: 12/2020 History of Any Multi-Drug Resistant Organisms: None Reported Past Surgical History: Appendectomy, Bariatric Surgery, Bowel Resection, Cholecystectomy, Heart Catheterization With Stent, Hernia Repair, Tubal Ligation Additional Past Surgical History / Comment(s): LAP BAND 2012 (DR YATES)., Bowel resection x2 (2001 most recent)., heart cath with 2 stents (December 2020) Past Anesthesia/Blood Transfusion Reactions: Previous Problems w/ Anesthesia, Motion Sickness, Postoperative Nausea & Vomiting (PONV) Additional Past Anesthesia/Blood Transfusion Reaction / Comment(s): mom= ponv Date of Last Stent Placement:: 12/24/2020 Past Psychological History: Anxiety Smoking Status: Former smoker Past Alcohol Use History: Occasional Additional Past Alcohol Use History / Comment(s): quit smoking december 23, 2020., hx of 1/2 PPD, STARTED SMOKING AGE 11 (1983) Past Drug Use History: Marijuana Additional Drug Use History / Comment(s): occasional marijuana use - Past Family History Mother Family Medical History: Hyperlipidemia, Hypertension Additional Family Medical History / Comment(s): extra heart beat Father Family Medical History: Coronary Artery Disease (CAD), Hyperlipidemia, Hypertension Additional Family Medical History / Comment(s): bad heart valve Medications and Allergies Home Medications Medication Instructions Recorded Confirmed Type Atorvastatin [Lipitor] 80 mg PO HS #90 tab 12/25/20 04/10/22 Rx Metoprolol Tartrate [Lopressor] 25 mg PO BID #180 tab 12/25/20 04/10/22 Rx Nitroglycerin Sl Tabs [Nitrostat] 0.4 mg SUBLINGUAL Q5M PRN #30 tab 12/25/20 04/10/22 Rx Aspirin 325 mg PO BID 03/31/22 04/10/22 History ALPRAZolam [Xanax] 0.25 mg PO BID PRN MDD A 04/08/22 04/10/22 History Immune Support Supplement 2 tab PO DAILY 04/08/22 04/10/22 History Melatonin [Melatonin Dissolving 10 mg PO HS PRN 04/08/22 04/10/22 History Tablet] Multivit-Min/Iron/Folic/Lutein 1 each PO DAILY 04/08/22 04/10/22 History [Centrum Silver Women Tablet] Omeprazole 40 mg PO DAILY 04/08/22 04/10/22 History Allergies Allergy/AdvReac Type Severity Reaction Status Date / Time codeine Allergy Rash/Hives, Verified 04/10/22 09:13 SOB hydrocodone Allergy Rash/Hives Verified 04/10/22 09:13 infliximab [From Remicade] Allergy bronchospas Verified 04/10/22 09:13 ms/hives ondansetron HCl AdvReac seizure Verified 04/10/22 09:13 [From Zofran (as like hydrochloride)] activity prochlorperazine AdvReac "looked Verified 04/10/22 09:13 [From Compazine] like a seizure" prochlorperazine edisylate AdvReac "looked Verified 04/10/22 09:13 [From Compazine] like a seizure" prochlorperazine maleate AdvReac "looked Verified 04/10/22 09:13 [From Compazine] like a seizure" immunosuppressant AdvReac Severe sore, Uncoded 04/10/22 09:13 pancreatitis, erythema syndorsome. Surgical - Exam Vital Signs Temp Pulse Resp BP Pulse Ox 97.2 F L 72 18 147/78 98 04/10/22 09:11 04/10/22 09:11 04/10/22 09:11 04/10/22 09:11 04/10/22 09:11 - General well developed, well nourished, no distress - Eyes PERRL - ENT normal pinna - Neck no masses - Respiratory normal expansion - Cardiovascular Rhythm: regular - Abdomen Abdomen: soft, non tender Assessment and Plan Assessment: GERD. We'll perform EGD.
[2022-04-10] MEDS ORDERED: LIDOCAINE 2% INJ 20 MG/ML (2 ML VIAL) ONE (10:28)
[2022-04-10] MEDS ORDERED: PROPOFOL 10 MG/ML 20 ML VIAL IV ONE (10:28)
--- NOTE | 2022-04-10 10:40 | P.OP ---
Date of Procedure: 04/10/22 Preoperative Diagnosis: GERD Postoperative Diagnosis: Mild antral gastritis Minimal esophagitis LAP-BAND without evidence of erosion Procedure(s) Performed: EGD Anesthesia: MAC Surgeon: Brice Best Pathology: other (Antrum, esophagus) Condition: stable Disposition: PACU Description of Procedure: The patient's placed on the endoscopy table in the lateral position. She received IV sedation. The gastroscope placed oropharynx passed in the esophagus and stomach. Scope was then placed through the pylorus. The first and second portion of the duodenum appeared normal. The scope was then brought back the antrum this was mildly inflamed. A biopsies performed. The scope was then retroflexed and the remainder the stomach appeared normal. The patient appears LAP-BAND device this was without evidence of inflammation or erosion. The GE junction was at 40 cm per the distal esophagus inflamed. A biopsies performed. The proximal esophagus appeared normal. Scope withdrawn for patient.
[2022-04-10 10:52] VITALS: RESP 16
[2022-04-10 10:59] VITALS: BP 101/61; PULSE 67
== END 2022-04-10 11:00 | disposition home or self-care (01) ==
LOC: ORWHC2ENDO 08:45
PROVIDERS: ATTEND Surgery
DX: K29.50 Unspecified chronic gastritis without bleeding (principal); K21.00 Gastro-esophageal reflux disease with esophagitis, without bleeding; I25.10 Atherosclerotic heart disease of native coronary artery without angina pectoris; I10 Essential (primary) hypertension; F41.9 Anxiety disorder, unspecified; F10.99 Alcohol use, unspecified with unspecified alcohol-induced disorder; K50.90 Crohn's disease, unspecified, without complications; F12.90 Cannabis use, unspecified, uncomplicated; Z87.19 Personal history of other diseases of the digestive system; Z90.89 Acquired absence of other organs; Z98.84 Bariatric surgery status; Z90.49 Acquired absence of other specified parts of digestive tract; Z95.5 Presence of coronary angioplasty implant and graft; Z98.51 Tubal ligation status; Z87.891 Personal history of nicotine dependence; Z82.49 Family history of ischemic heart disease and other diseases of the circulatory system; Z83.438 Family history of other disorder of lipoprotein metabolism and other lipidemia; Z88.8 Allergy status to other drugs, medicaments and biological substances; Z88.5 Allergy status to narcotic agent; Z79.899 Other long term (current) drug therapy
CPT/HCPCS: 88305; 43239; J2704; J2001

== ENCOUNTER 2022-04-23 09:25 | Day surgery (SDC) | payer BC ==
[2022-04-17 13:30] VITALS: BMI 49.1
[~2022-04-23 09:25] MED LIST changes: +DEXAMETHASONE SOD PHOSPHATE 4 MG/ML 1 ML VIAL IV ONE; +ENOXAPARIN 40 MG/0.4 ML SYRINGE SQ PRN; +fentaNYL (PF) 50 MCG/ML 2 ML AMP IV PRN
[2022-04-23 10:22] LABS: Glucose,Whole Blood 94 mg/dL (70-110)
[2022-04-23] MEDS ORDERED: SCOPOLAMINE 1 MG/72 HR PATCH TRANSDERM ONE (10:24)
--- NOTE | 2022-04-23 10:32 | P.GSHP ---
History of Present Illness H&P Date: 04/23/22 Chief Complaint: Dysphagia This is a 51-year-old female who presents today for removal LAP-BAND conversion sleeve gastrectomy. Patient's had chronic dysphagia with her LAP-BAND. Past Medical History Past Medical History: Coronary Artery Disease (CAD), GERD/Reflux, Hypertension, Myocardial Infarction ([place]) Additional Past Medical History / Comment(s): Chrohns Disease., hx pancreatitis x2, has lap band., currently following diet with protein shakes per dr carr's instructions. Last Myocardial Infarction Date:: 12/2020 History of Any Multi-Drug Resistant Organisms: None Reported Past Surgical History: Appendectomy, Bariatric Surgery, Bowel Resection, Cholecystectomy, Heart Catheterization With Stent, Hernia Repair, Tubal Ligation Additional Past Surgical History / Comment(s): LAP BAND 2012 (DR CARR)., Bowel resection x2 (2001 most recent)., heart cath with 2 stents (December 2020) Past Anesthesia/Blood Transfusion Reactions: Previous Problems w/ Anesthesia, Motion Sickness, Postoperative Nausea & Vomiting (PONV) Additional Past Anesthesia/Blood Transfusion Reaction / Comment(s): mom= ponv Date of Last Stent Placement:: 12/24/2020 Past Psychological History: Anxiety Smoking Status: Former smoker Past Alcohol Use History: Occasional Additional Past Alcohol Use History / Comment(s): quit smoking december 23, 2020., hx of 1/2 PPD, STARTED SMOKING AGE 11 (1983) Past Drug Use History: Marijuana Additional Drug Use History / Comment(s): occasional marijuana use - Past Family History Mother Family Medical History: Hyperlipidemia, Hypertension Additional Family Medical History / Comment(s): extra heart beat Father Family Medical History: Coronary Artery Disease (CAD), Hyperlipidemia, Hypertension Additional Family Medical History / Comment(s): bad heart valve Medications and Allergies Home Medications Medication Instructions Recorded Confirmed Type Atorvastatin [Lipitor] 80 mg PO HS #90 tab 12/25/20 04/23/22 Rx Metoprolol Tartrate [Lopressor] 25 mg PO BID #180 tab 12/25/20 04/17/22 Rx Nitroglycerin Sl Tabs [Nitrostat] 0.4 mg SUBLINGUAL Q5M PRN #30 tab 12/25/20 04/23/22 Rx Aspirin 325 mg PO BID 03/31/22 04/17/22 History ALPRAZolam [Xanax] 0.25 mg PO BID PRN MDD A 04/08/22 04/17/22 History Immune Support Supplement 2 tab PO DAILY 04/08/22 04/17/22 History Melatonin [Melatonin Dissolving 10 mg PO HS PRN 04/08/22 04/23/22 History Tablet] Multivit-Min/Iron/Folic/Lutein 1 each PO DAILY 04/08/22 04/17/22 History [Centrum Silver Women Tablet] Omeprazole 40 mg PO DAILY 04/08/22 04/17/22 History Allergies Allergy/AdvReac Type Severity Reaction Status Date / Time codeine Allergy Rash/Hives, Verified 04/23/22 09:51 SOB hydrocodone Allergy Rash/Hives Verified 04/23/22 09:51 infliximab [From Remicade] Allergy bronchospas Verified 04/23/22 09:51 ms/hives ondansetron HCl AdvReac seizure Verified 04/23/22 09:51 [From Zofran (as like hydrochloride)] activity prochlorperazine AdvReac "looked Verified 04/23/22 09:51 [From Compazine] like a seizure" prochlorperazine edisylate AdvReac "looked Verified 04/23/22 09:51 [From Compazine] like a seizure" prochlorperazine maleate AdvReac "looked Verified 04/23/22 09:51 [From Compazine] like a seizure" immunosuppressant AdvReac Severe sore, Uncoded 04/23/22 09:51 pancreatitis, erythema syndorsome. Surgical - Exam Vital Signs Temp Pulse Resp BP Pulse Ox 97.0 F L 76 18 116/70 97 04/23/22 10:06 04/23/22 10:06 04/23/22 10:06 04/23/22 10:06 04/23/22 10:06 - General well developed, well nourished, no distress - Eyes PERRL - ENT normal pinna, normal nares - Neck no masses - Respiratory normal expansion - Cardiovascular Rhythm: regular - Abdomen Abdomen: soft, non tender Assessment and Plan Plan: Dysphagia. We'll perform removal of LAP-BAND conversion sleeve gastrectomy.
[2022-04-23] MEDS ORDERED: MIDAZOLAM 2 MG/2 ML VIAL IVP ONE (10:34)
[2022-04-23] MEDS ORDERED: SUCCINYLCHOLINE CHLORIDE 200 MG/10 ML VIAL IV ONE (10:55)
[2022-04-23] MEDS ORDERED: NEOSTIGMINE 1 MG/ML 10 ML VIAL ONE (10:55)
[2022-04-23] MEDS ORDERED: HYDROmorphone (PF) 1 MG/ML ONE (10:55)
[2022-04-23] MEDS ORDERED: ROCURONIUM 10 MG/ML (5 ML VIAL) IV ONE (10:55)
[2022-04-23] MEDS ORDERED: LIDOCAINE 2% INJ 20 MG/ML (2 ML VIAL) ONE (10:55)
[2022-04-23] MEDS ORDERED: GLYCOPYRROLATE 0.2 MG/ML 2 ML VIAL ONE (10:55)
[2022-04-23] MEDS ORDERED: PROPOFOL 10 MG/ML 20 ML VIAL IV ONE (10:55)
[2022-04-23] MEDS ORDERED: MIDAZOLAM 2 MG/2 ML VIAL ONE (10:55)
[2022-04-23] MEDS: ceFAZolin 3 GM in SODIUM CHLORIDE 0.9% 100 ML IVPB PRN ×2 (10:59→11:29)
[2022-04-23] MEDS ORDERED: BUPIVACAIN-EPI 0.25%-1:200,000 30 ML VIAL SQ ONE (11:29)
--- NOTE | 2022-04-23 11:58 | P.OP ---
Date of Procedure: 04/23/22 Preoperative Diagnosis: Dysphagia Postoperative Diagnosis: Dysphagia Procedure(s) Performed: Diagnostic laparoscopy Lysis of adhesions Removal of LAP-BAND port Anesthesia: KETAN Surgeon: Brice Best Estimated Blood Loss (ml): 5 Pathology: none sent Condition: stable Disposition: PACU Description of Procedure: Patient's placed on the operative table in the supine position. She received general endotracheal tube anesthesia. She was then placed in dorsal 5 position. Her abdomen was prepped and draped usual fashion. The patient's skin incision sites were no sizable percent local Xylocaine. Using a 15 blade the skin was incised at the LAP-BAND port site using blunt and sharp dissection with cautery the LAP-BAND port was dissected free the PEG tube was cut. Using a 5 mm trocar the peritoneal cavity is entered. And was insufflated after adequate insufflation a laparoscope was placed into the peritoneal cavity. There extensive adhesions noted throughout the period cavity. Another trochars placed in the right lateral position and the camera there and significant adhesions were also seen. Another trocar was placed in the left lateral position and more adhesions were seen. Attempts were made to lyse adhesions. A 20 minutes of operative time used to lyse adhesions. At this point the adhesions were too dense and decided to change the procedure to an open removal of LAP-BAND system and sleeve gastric. It was decided to stop the procedure at this point. And discussed with the patient about her surgical options due to adhesions. This point the trochars withdrawn. Skin was closed interrupted 3-0 Monocryl suture. Patient was sent to recovery in stable condition. Patient will be brought back another day for open sleeve gastrectomy
[2022-04-23 11:59] VITALS: TEMP 98.2
[2022-04-23] MEDS ORDERED: HYDROmorphone 0.5 MG/0.5 ML SYRINGE IVP ONE (12:48)
[2022-04-23] MEDS ORDERED: LACTATED RINGERS 1,000 ML IV ONE (13:09)
[2022-04-23 13:38] VITALS: RESP 15
[2022-04-23 14:27] VITALS: BP 149/69; PULSE 71
== END 2022-04-23 14:46 | disposition home or self-care (01) ==
LOC: OR 09:25
PROVIDERS: ATTEND Surgery
DX: K66.0 Peritoneal adhesions (postprocedural) (postinfection) (principal); R13.10 Dysphagia, unspecified; I25.10 Atherosclerotic heart disease of native coronary artery without angina pectoris; K21.9 Gastro-esophageal reflux disease without esophagitis; I10 Essential (primary) hypertension; I25.2 Old myocardial infarction; F41.9 Anxiety disorder, unspecified; K91.0 Vomiting following gastrointestinal surgery; F10.99 Alcohol use, unspecified with unspecified alcohol-induced disorder; E66.01 Morbid (severe) obesity due to excess calories; F12.90 Cannabis use, unspecified, uncomplicated; K57.92 Diverticulitis of intestine, part unspecified, without perforation or abscess without bleeding; Z83.438 Family history of other disorder of lipoprotein metabolism and other lipidemia; Z87.891 Personal history of nicotine dependence; Z90.89 Acquired absence of other organs; Z98.51 Tubal ligation status; Z98.84 Bariatric surgery status; Z95.5 Presence of coronary angioplasty implant and graft; Z82.49 Family history of ischemic heart disease and other diseases of the circulatory system; Z79.82 Long term (current) use of aspirin; Z79.899 Other long term (current) drug therapy; Z88.5 Allergy status to narcotic agent; Z88.9 Allergy status to unspecified drugs, medicaments and biological substances; Z88.8 Allergy status to other drugs, medicaments and biological substances; Z68.41 Body mass index [BMI] 40.0-44.9, adult; T75.3XXD Motion sickness, subsequent encounter
CPT/HCPCS: 49320; J2250; J0330; J1100; J2710; J0690; J1650; J1170 ×2; J2704; J2001

== ENCOUNTER → 2022-05-05 | Outpatient (CLI) | payer BC ==
[2022-05-05 14:02] VITALS: BP 136/88; PULSE 81; TEMP 97.7; BMI 50.6
--- NOTE | 2022-05-20 12:27 | P.HPBAR ---
Bariatric H&P - History & Physicial H&P Date: 05/05/22 History & Physicial: Visit/CC: lap band removal f/u appt Patient initial contact: Initial weight: 101.831 kg Initial weight in pounds: 224.50 Height: 5 ft 2 in Initial BMI: 41.1 Last weight: Current weight: 125.645 kg Current weight in pounds: 277.00 Current BMI: 50.6 [place] body weight (based on NIH guidelines): 49.895 kg Excess body weight loss: The patient is a 51 year-old F who presents for Bariatric Assessment. Patient p resents today for bariatric follow-up. She has had some complaints of epigastric pain. Patient is obese. BMI 51. She was unable to have her LAP- BAND device removed due to adhesions. Past Medical History Past Medical History: Coronary Artery Disease (CAD), GERD/Reflux, Hypertension, Myocardial Infarction ([place]) Additional Past Medical History / Comment(s): Chrohns Disease., hx pancreatitis x2,, currently following diet with protein shakes per dr carr's instructions. Last Myocardial Infarction Date:: 12/2020 History of Any Multi-Drug Resistant Organisms: None Reported Past Surgical History: Appendectomy, Bariatric Surgery, Bowel Resection, Cholec ystectomy, Heart Catheterization With Stent, Hernia Repair, Tubal Ligation Additional Past Surgical History / Comment(s): LAP BAND 2012 (DR CARR)., Bowel resection x2 (2001 most recent)., heart cath with 2 stents (December 2020), lap band removed 04/23/22 Past Anesthesia/Blood Transfusion Reactions: Previous Problems w/ Anesthesia, Motion Sickness, Postoperative Nausea & Vomiting (PONV) Additional Past Anesthesia/Blood Transfusion Reaction / Comm: mom= ponv Date of Last Stent Placement:: 12/24/2020 Past Psychological History: Anxiety Smoking Status: Former smoker Past Alcohol Use History: Occasional Additional Past Alcohol Use History / Comment(s): quit smoking december 23, 2020., hx of 1/2 PPD, STARTED SMOKING AGE 11 (1983) Past Drug Use History: Marijuana Additional Drug Use History / Comment(s): occasional marijuana use - Past Family History Mother Family Medical History: Hyperlipidemia, Hypertension Additional Family Medical History / Comment(s): extra heart beat Father Family Medical History: Coronary Artery Disease (CAD), Hyperlipidemia, Hypertension Additional Family Medical History / Comment(s): bad heart valve Surgical - Exam Vital Signs Temp Pulse BP 97.7 F 81 136/88 05/05/22 13:57 05/05/22 13:57 05/05/22 13:57 - General well developed, well nourished, no distress - Eyes PERRL - ENT normal pinna - Neck no masses - Abdomen Abdomen: soft, non tender Bariatric Assessment & Plan Plan: BMI 51 Morbid obesity. Patient will need to undergo open removal of her LAP-BAND device with conversion to sleeve gastrectomy. She will follow-up in 4 weeks. Bariatric Checklist Checklist: Plan: Checklist: EGD: 1. Hiatal hernia: 2. H. Pylori: HgbA1c: Vitamin D: Smoking: Current every day smoker Primary care physician referral: kim centeno Psychiatry clearance: Cardiology clearance: Sleep study: Diet journal: VTE risk score: VTE risk level: Rehab needs at discharge:
== END ==
LOC: BARWHC3 13:29
PROVIDERS: ATTEND Surgery
DX: E66.01 Morbid (severe) obesity due to excess calories (principal); Z68.43 Body mass index [BMI] 50.0-59.9, adult; Z88.5 Allergy status to narcotic agent; Z88.9 Allergy status to unspecified drugs, medicaments and biological substances; F17.200 Nicotine dependence, unspecified, uncomplicated; Z88.8 Allergy status to other drugs, medicaments and biological substances
CPT/HCPCS: 99211

== ENCOUNTER → 2022-05-16 | Outpatient (CLI) | payer BC ==
--- NOTE | 2022-05-17 10:12 | CT ---
EXAMINATION TYPE: CT abdomen pelvis w con CT DLP: 3314.0 mGycm, Automated exposure control for dose reduction was used. DATE OF EXAM: 05/16/2022 7:28 PM COMPARISON: None CLINICAL INDICATION:Female, 51 years old with history of K57.92 DIVERTICULITIS; DIVERTICULITIS TECHNIQUE: Axial CT of the abdomen and pelvis. Sagittal and coronal reformats were created on a dINK workstation. Contrast used:100ml mL of Isovue 370 with IV Contrast, Oral contrast used: with Oral Contrast FINDINGS: LOWER CHEST: Heart is mildly enlarged for size. Mild coronary artery atherosclerosis. ABDOMEN LIVER: Diffusely hypoattenuating parenchyma. GALLBLADDER AND BILE DUCTS: The gallbladder is surgically absent. PANCREAS: Unremarkable. SPLEEN: Unremarkable. ADRENAL GLANDS: Unremarkable. KIDNEYS AND URETERS: No evidence of hydronephrosis or renal calculus. The ureters are unremarkable. PELVIS BLADDER: Unremarkable REPRODUCTIVE: Unremarkable. ABDOMEN & PELVIS STOMACH AND BOWEL: Gastric lap band is present. Gastric lap band appears in appropriate position. Tub ing appear intact. No evidence of bowel obstruction. The appendix is surgically absent. PERITONEUM: No evidence of pneumoperitoneum or free fluid. VASCULATURE: No evidence of aortic aneurysm. Mild atherosclerosis of the arterial vasculature. MUSCULOSKELETAL: No acute osseous abnormalities LYMPH NODES: No gross evidence for lymphadenopathy. SOFT TISSUE/ABDOMINAL WALL: Intra-abdominal wall hernia mesh repair. Mesh appears in appropriate posi tion. Small pocket of suspected fluid with peripheral enhancement seen in the upper abdomen near midl ine measuring 2.8 x 1.3 cm. There appears to have a tiny tract extends towards the skin and towards/i nto the abdominal wall. IMPRESSION: 1. Abnormality in the subcutaneous tissues in the upper abdomen just left of midline with a suspected small fluid collection with possible tract to the skin. Findings may be postsurgical. Comparison wit h priors at outside institution is recommended. Further workup with ultrasound is recommended. 2. No additional evidence for acute intra-abdominal process to explain the patient's pain. No evidenc e for diverticulitis. 3. Gastric lap band in appropriate position. 4. Anterior abdominal wall mesh repair in appropriate position. 5. Hepatic steatosis.
== END | disposition home or self-care (01) ==
LOC: RADCTMAIN 17:27
PROVIDERS: ATTEND Surgery
DX: K76.0 Fatty (change of) liver, not elsewhere classified (principal)
CPT/HCPCS: 74177; Q9967

== ENCOUNTER → 2022-05-26 | Outpatient (CLI) | payer BC ==
--- NOTE | 2022-05-26 15:03 | P.HPBAR ---
Bariatric H&P - History & Physicial H&P Date: 05/26/22 History & Physicial: Visit/CC: Patient initial contact: Initial weight: 101.831 kg Initial weight in pounds: Height: Initial BMI: Last weight: Current weight: Current weight in pounds: Current BMI: [place] body weight (based on NIH guidelines): Excess body weight loss: The patient is a 51 year-old F who presents for Bariatric Assessment. Patient presents today for bariatric follow-up. She had a the LAP-BAND port removed at her attempted laparoscopic sleeve gastrectomy. Patient's morbid obese. Patient will undergo open sleeve gastrectomy due to significant intra-abdominal adhesions. Past Medical History Past Medical History: Coronary Artery Disease (CAD), GERD/Reflux, Hypertension, Myocardial Infarction ([place]) Additional Past Medical History / Comment(s): Chrohns Disease., hx pancreatitis x2,, currently following diet with protein shakes per dr carr's instructions. Last Myocardial Infarction Date:: 12/2020 History of Any Multi-Drug Resistant Organisms: None Reported Past Surgical History: Appendectomy, Bariatric Surgery, Bowel Resection, Cholecystectomy, Heart Catheterization With Stent, Hernia Repair, Tubal Ligation Additional Past Surgical History / Comment(s): LAP BAND 2012 (DR CARR)., Bowel resection x2 (2001 most recent)., heart cath with 2 stents (December 2020), lap band removed 04/23/22 Past Anesthesia/Blood Transfusion Reactions: Previous Problems w/ Anesthesia, Motion Sickness, Postoperative Nausea & Vomiting (PONV) Additional Past Anesthesia/Blood Transfusion Reaction / Comm: mom= ponv Date of Last Stent Placement:: 12/24/2020 Past Psychological History: Anxiety Smoking Status: Former smoker Past Alcohol Use History: Occasional Additional Past Alcohol Use History / Comment(s): quit smoking december 23, 2020., hx of 1/2 PPD, STARTED SMOKING AGE 11 (1983) Past Drug Use History: Marijuana Additional Drug Use History / Comment(s): occasional marijuana use - Past Family History Mother Family Medical History: Hyperlipidemia, Hypertension Additional Family Medical History / Comment(s): extra heart beat Father Family Medical History: Coronary Artery Disease (CAD), Hyperlipidemia, Hyp ertension Additional Family Medical History / Comment(s): bad heart valve Surgical - Exam - General well developed, well nourished - Eyes PERRL - ENT normal pinna - Neck no masses - Respiratory normal expansion - Cardiovascular Rhythm: regular - Abdomen Abdomen: soft, non tender Bariatric Assessment & Plan Plan: Morbid obesity. Patient be scheduled for open sleeve gastrectomy and removal of LAP-BAND system. Bariatric Checklist Checklist: Plan: Checklist: EGD: 1. Hiatal hernia: 2. H. Pylori: HgbA1c: Vitamin D: Smoking: Current every day smoker Primary care physician referral: kim centeno Psychiatry clearance: Cardiology clearance: Sleep study: Diet journal: VTE risk score: VTE risk level: Rehab needs at discharge:
[2022-05-26 15:31] VITALS: BP 142/79; PULSE 74; RESP 16; TEMP 98.1; BMI 50.5
== END | disposition home or self-care (01) ==
LOC: BARWHC3 13:57
PROVIDERS: ATTEND Surgery
DX: E66.01 Morbid (severe) obesity due to excess calories (principal)
CPT/HCPCS: 99211

== ENCOUNTER → 2022-07-16 | Outpatient (CLI) | payer BC ==
--- NOTE | 2022-07-17 18:27 | MM ---
Reason for Exam: Screening (asymptomatic). Last mammogram was performed 4 year(s) and 7 month(s) ago. Patient History: Menarche at age 10. First Full-Term at age 28. Late child-bearing (after 30). Postmenopausal. Risk Values: [place] 5 year model risk: 1.5%. NCI Lifetime model risk: 11.6%. Prior Study Comparison: 07/23/2015 Bilateral Screening Mammogram, [facility]. 07/29/2016 Bilateral Screening Mammogram, [facility]. 12/28/2017 Bilateral Screening Mammogram, [facility]. Tissue Density: The breast tissue is heterogeneously dense. This may lower the sensitivity of mammography. Findings: Analyzed By CAD. Nodularity medial left CC view. There is no suspicious group of microcalcifications or new suspicious mass in either breast. Overall Assessment: Benign, BI-RAD 2 Management: Screening Mammogram of both breasts in 1 year. 1. Patient should continue monthly self breast exams. 2. A clinical breast exam by your physician is recommended on an annual basis. 3. This exam should not preclude additional follow-up of suspicious palpable abnormalities. Electronically signed and approved by: Nette Vega M.D. Radiologist
== END | disposition home or self-care (01) ==
LOC: RADMAMWWP 09:51
PROVIDERS: ATTEND Family Medicine
DX: Z12.31 Encounter for screening mammogram for malignant neoplasm of breast (principal); Z78.0 Asymptomatic menopausal state
CPT/HCPCS: 77063; 77067

== ENCOUNTER → 2022-11-24 | Day surgery (SDC) | payer BC ==
[~2022-11-24] MED LIST changes: -DEXAMETHASONE SOD PHOSPHATE 4 MG/ML 1 ML VIAL IV ONE; -ENOXAPARIN 40 MG/0.4 ML SYRINGE SQ PRN; +GLUCAGON 1 MG/ML VIAL IM STA; -LACTATED RINGERS 1,000 ML IV SCH; -LIDOCAINE 1% (10MG/ML) FOR IV START INTRADERMA PRN; -fentaNYL (PF) 50 MCG/ML 2 ML AMP IV PRN
[2022-11-24 08:41] VITALS: BP 133/76; PULSE 76; RESP 16; TEMP 97.8
--- NOTE | 2022-11-25 08:19 | MR ---
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 Licensed Mental Health Counselor hn's disease. Gadavist 12ml. TECHNIQUE: Standard multiplanar, multisequence imaging of the abdomen is performed without and with I V contrast, patient is injected with 1350 mL intravenous Gadavist gadolinium contrast. Oral NeuLumEX was given as per enterography protocol. FINDINGS: LOWER CHEST: No significant findings. ABDOMEN There is motion degraded herniation which limits evaluation. Bowel: The small bowel distention is inadequate proximally. No definite evidence to suggest abnormal bowel wall thickening involving a small bowel or large bowel. No evidence of bowel obstruction. No evidence for mucosal hyperenhancement, stricture or fistulous tract formation. Gastric lap band is no emily involving the stomach. Peritoneum: No evidence of pneumoperitoneum, free fluid, or adenopathy. Liver: Unremarkable. Gallbladder and Bile ducts: Unremarkable. Pancreas: Unremarkable. Spleen: Unremarkable. Adrenal glands: Unremarkable. Kidneys: Unremarkable. Bladder: Unremarkable. Reproductive: Unremarkable. Lymph Nodes: No lymphadenopathy. Vasculature: Unremarkable. No aortic aneurysm. Musculoskeletal: The osseous structures appear intact. Abdominal wall: Anterior abdominal wall hernia mesh better appreciated on CT imaging. Resolution of p rior fluid collection in the subcutaneous tissues and prior CT. IMPRESSION: 1. Motion degraded exam, No evidence for active bowel disease. 2. Resolution of prior saphenous fluid collection seen on prior CT.
== END ==
LOC: RADMRIMAIN 07:38
PROVIDERS: ATTEND Internal Medicine Gastroenterology
DX: K50.80 Crohn's disease of both small and large intestine without complications (principal); Z98.1 Arthrodesis status
CPT/HCPCS: 96372; 74183; J1610; A9585; 72197

== ENCOUNTER → 2023-09-02 | Outpatient (CLI) | payer BC ==
--- NOTE | 2023-09-03 08:55 | MM ---
Reason for Exam: Screening (asymptomatic). Last mammogram was performed 1 year(s) and 1 month(s) ago. Patient History: Menarche at age 10. First Full-Term at age 28. Late child-bearing (after 30). Postmenopausal. Risk Values: Camila 5 year model risk: 1.6%. NCI Lifetime model risk: 11.4%. Prior Study Comparison: 07/29/2016 Bilateral Screening Mammogram, [facility]. 12/28/2017 Bilateral Screening Mammogram, [facility]. 07/16/2022 Bilateral MG 3D screening mammo w/cad, [facility]. Tissue Density: The breast tissue is almost entirely fat. Findings: Analyzed By CAD. There is no suspicious group of microcalcifications or new suspicious mass. Overall Assessment: Negative, BI-RAD 1 Management: Screening Mammogram of both breasts in [address] [facility] will attempt to contact patient to return for supplemental views and ultrasound if indicated. Patient should continue monthly self-breast exams. A clinical breast exam by your physician is recommended on an annual basis. This exam should not preclude additional follow-up of suspicious palpable abnormalities. Note on Camila scores and lifetime risk: 1. A Camila score greater than 3% is considered moderate risk. If this is the case, consider specialist referral to assess eligibility for a risk reducing agent. 2. If overall lifetime risk for the development of breast cancer is 20% or higher, the patient may qualify for future screening with alternating mammogram and breast MRI. Electronically signed and approved by: Darius Caal DO
== END | disposition home or self-care (01) ==
LOC: RADMAMWWP 13:20
PROVIDERS: ATTEND Family Medicine
DX: Z12.31 Encounter for screening mammogram for malignant neoplasm of breast (principal); Z78.0 Asymptomatic menopausal state
CPT/HCPCS: 77063; 77067

== ENCOUNTER → 2023-11-18 | Outpatient (CLI) | payer BC ==
--- NOTE | 2023-11-18 09:36 | XR ---
EXAMINATION TYPE: XR abdomen 2V DATE OF EXAM: 11/18/2023 COMPARISON: NONE HISTORY: Pain TECHNIQUE: Single supine KUB image of the abdomen is obtained FINDINGS: Small bowel demonstrates no evidence for dilatation or air fluid levels. Gas and fecal material is seen in non-distended colon. No convincing evidence for pneumoperitoneum. No unusual calcifications. The lung bases are clear. The osseous structures are intact. IMPRESSION: 1. Overall nonobstructive bowel gas pattern.
== END | disposition home or self-care (01) ==
LOC: RADXRYALE 09:06
PROVIDERS: ATTEND Physician Assistant Medical
DX: K31.89 Other diseases of stomach and duodenum (principal)
CPT/HCPCS: 74019

== ENCOUNTER 2023-11-20 11:22 | Emergency (ER) | payer BC ==
--- NOTE | 2023-11-20 12:03 | ED ---
Nausea/Vomiting/Diarrhea HPI - General Chief complaint: Nausea/Vomiting/Diarrhea Stated complaint: NVD,Fever Time Seen by Provider: 11/20/23 11:35 Source: patient, RN notes reviewed Mode of arrival: ambulatory Limitations: no limitations - History of Present Illness Initial comments: This is a 53-year-old female who presents to the emergency department for nausea, vomiting, and diarrhea. States that symptoms started about a week ago. She followed up with her primary care provider a couple of days ago and had a stool sample sent out for C. difficile testing, however she has not yet gotten the results. They did try prescribing her Zofran, however that has not been effective for the nausea. States that the diarrhea is essentially pure liquid and she has been unable to keep anything down. Denies any fever/chills. States that her primary care provider office advised she come to the emergency department for evaluation. Denies a history of C. difficile, sick contacts, or recent antibiotic use. MD complaint: nausea, vomiting, diarrhea - Related Data Home Medications Medication Instructions Recorded Confirmed Aspirin 325 mg PO BID 03/31/22 11/24/22 ALPRAZolam [Xanax] 0.25 mg PO BID PRN MDD A 04/08/22 11/24/22 Immune Support Supplement 2 tab PO DAILY 04/08/22 11/24/22 Melatonin [Melatonin Dissolving 10 mg PO HS PRN 04/08/22 11/24/22 Tablet] Multivit-Min/Iron/Folic/Lutein 1 each PO DAILY 04/08/22 11/24/22 [Centrum Silver Women Tablet] Omeprazole 40 mg PO DAILY 04/08/22 11/24/22 Pravastatin Sodium [Pravachol] 40 mg PO HS 11/24/22 11/24/22 Previous Rx's Medication Instructions Recorded Metoprolol Tartrate [Lopressor] 25 mg PO BID #180 tab 12/25/20 Nitroglycerin Sl Tabs [Nitrostat] 0.4 mg SUBLINGUAL Q5M PRN #30 tab 12/25/20 Acetaminophen Tab [Tylenol] 650 mg PO Q6H #30 tab 04/23/22 Cholestyramine (with Sugar) 4 gm PO BID PRN #60 packet 11/20/23 [Cholestyramine Packet] Diphenoxylate HCl/Atropine 1 - 2 tab PO QID PRN 3 Days #24 tab 11/20/23 [Lomotil 2.5-0.025 mg Tablet] Metoclopramide [Reglan] 10 mg PO Q6H PRN #30 tab 11/20/23 Allergies Allergy/AdvReac Type Severity Reaction Status Date / Time codeine Allergy Rash/Hives, Verified 11/20/23 11:25 SOB hydrocodone Allergy Rash/Hives Verified 11/20/23 11:25 infliximab [From Remicade] Allergy bronchospas Verified 11/20/23 11:25 ms/hives ondansetron HCl AdvReac seizure Verified 11/20/23 11:25 [From Zofran (as like hydrochloride)] activity prochlorperazine AdvReac "looked Verified 11/20/23 11:25 [From Compazine] like a seizure" prochlorperazine edisylate AdvReac "looked Verified 11/20/23 11:25 [From Compazine] like a seizure" prochlorperazine maleate AdvReac "looked Verified 11/20/23 11:25 [From Compazine] like a seizure" immunosuppressant AdvReac Severe sore, Uncoded 11/20/23 11:25 pancreatitis, erythema syndorsome. Review of Systems ROS Statement: Those systems with pertinent positive or pertinent negative responses have been documented in the HPI. ROS Other: All systems not noted in ROS Statement are negative. Past Medical History Past Medical History: Coronary Artery Disease (CAD), GERD/Reflux, Hypertension, Myocardial Infarction (MA) Additional Past Medical History / Comment(s): Chrohns Disease., hx pancreatitis x2,, currently following diet with protein shakes per dr carr's instructions. Last Myocardial Infarction Date:: 12/2020 History of Any Multi-Drug Resistant Organisms: None Reported Past Surgical History: Appendectomy, Bariatric Surgery, Bowel Resection, Cholecystectomy, Heart Catheterization With Stent, Hernia Repair, Tubal Ligation Additional Past Surgical History / Comment(s): LAP BAND 2011 (DR CARR)., Bowel resection x2 (2001 most recent)., heart cath with 2 stents (December 2020), lap band removed 04/23/22 Past Anesthesia/Blood Transfusion Reactions: Previous Problems w/ Anesthesia, Motion Sickness, Postoperative Nausea & Vomiting (PONV) Additional Past Anesthesia/Blood Transfusion Reaction / Comment(s): mom= ponv Date of Last Stent Placement:: 12/24/2020 Past Psychological History: Anxiety Smoking Status: Former smoker Past Alcohol Use History: Occasional Past Drug Use History: Marijuana - Past Family History Mother Family Medical History: Hyperlipidemia, Hypertension Additional Family Medical History / Comment(s): extra heart beat Father Family Medical History: Coronary Artery Disease (CAD), Hyperlipidemia, Hypertension Additional Family Medical History / Comment(s): bad heart valve General Exam Limitations: no limitations General appearance: alert, in no apparent distress Head exam: Present: atraumatic, normocephalic, normal inspection Respiratory exam: Present: normal lung sounds bilaterally. Absent: respiratory distress, wheezes, rales, rhonchi, stridor Cardiovascular Exam: Present: regular rate, normal rhythm, normal heart sounds. Absent: systolic murmur, diastolic murmur, rubs, gallop, clicks GI/Abdominal exam: Present: soft, normal bowel sounds. Absent: distended, tenderness, guarding, rebound, rigid Neurological exam: Present: alert, oriented X3, CN II-XII intact Psychiatric exam: Present: normal affect, normal mood Skin exam: Present: warm, dry, intact, normal color. Absent: rash Course Vital Signs 11/20/23 11/20/23 11:23 14:42 Temperature 98.4 F 98.1 F Pulse Rate 92 86 Respiratory 22 18 Rate Blood Pressure 150/88 148/95 O2 Sat by Pulse 98 95 Oximetry Medical Decision Making - Medical Decision Making This is a 53 year old female who presents to the emergency department for nausea, vomiting, and diarrhea. Was pt. sent in by a medical professional or institution? @ -No Did you speak to anyone other than the patient for history? @ -No Did you review nursing and triage notes? @ -Yes, and I agree, it is accurate with regards to the patient's symptoms. Were old charts reviewed? @ -No Differential Diagnosis? @ -Differential Nausea and Vomiting: Gastroenteritis, cholecystitis, appendicitis, pancreatitis, migraine, benign positional vertigo, food borne illness, pyelonephritis, irritable bowel syndrome, influenza, Covid, GERD, incarcerated hernia, intestinal obstruction, this is not meant to be an all-inclusive list. EKG interpreted by me (3pts min.)? @ -Not obtained X-rays interpreted by me (1pt min.)? @ -Not obtained CT interpreted by me (1pt min.)? @ -Not obtained U/S interpreted by me (1pt. min.)? @ -Not obtained What testing was considered but not performed? (CT, X-rays, U/S, labs)? Why? @ -None What meds were considered but not given? Why? @ -None Did you discuss the management of the patient with other professionals? @ -No Did you reconcile home meds? @ -No Was smoking cessation discussed for >3mins.? @ -I discussed smoking cessation for greater than 3 minutes. The risk of smoking were discussed with the patient including but not limited to risks of cancer, stroke, coronary artery disease and COPD. Also discussed with patient were multiple methods of quitting smoking. Lastly we discussed the financial cost of smoking. Was critical care preformed (if so, how long)? @ -No Were there social determinants of health that impacted care today? How? (Homelessness, low income, unemployed, alcoholism, drug addiction, transportation, low edu. Level, literacy, decrease access to med. care, long-term, rehab)? @ -No Was there de-escalation of care discussed even if they declined? (Discuss DNR or withdrawal of care, Hospice)? @ -No What co-morbidities impacted this encounter? (DM, HTN, Smoking, COPD, CAD, Cancer, CVA, Hep., AIDS, mental health diagnosis, sleep apnea, morbid obesity)? @ -Crohn's disease, smoking Was patient admitted / discharged? @ -Discharged. Lab work demonstrates mild leukocytosis with a white blood cell count of 10.8. She also has signs of dehydration with a creatinine of 1.16 and lactic acid of 2.5. Urinalysis is contaminated without evidence of infection. COVID, influenza, and RSV testing are negative. C. difficile testing negative. Patient treated with IV fluids, Protonix, and Reglan, which she found beneficial. States that she was able to tolerate oral intake after the Reglan. Prescription for Lomotil and Reglan provided with dosing instructions reviewed. Advised she stop taking Lomotil when her diarrhea resolves otherwise this will make her constipated. She is also advised to slowly advance her diet as tolerated and remain well-hydrated. Patient discharged home in stable condition and advised to follow-up with her primary care provider. Undiagnosed new problem with uncertain prognosis? @ -None Drug Therapy requiring intensive monitoring for toxicity (Heparin, Nitro, Insulin, Cardizem)? @ -None Were any procedures done? @ -None Diagnosis/symptom? @ -Gastroenteritis Acute, or Chronic, or Acute on Chronic? @ -Acute Uncomplicated (without systemic symptoms) or Complicated (systemic symptoms)? @ -Uncomplicated Side effects of treatment? @ -None Exacerbation, Progression, or Severe Exacerbation] @ -Not applicable Poses a threat to life or bodily function? @ -No Return precautions reviewed in depth, the patient is instructed to return to the emergency department with any new, worsening, or concerning symptoms. Patient verbalized understanding. This case was discussed in detail with the attending ED physician, Dr. Cat. Presentation, findings, and treatment plan discussed in detail as well. - Lab Data Result diagrams: 11/20/23 12:11/20/23 12: Lab Results 11/20/23 11/20/23 11/20/23 Range/Units 12:01 12: 12: WBC 10.8 H (3.8-10.6) k/uL RBC 4.83 (3.80-5.40) m/uL Hgb 13.4 (11.4-16.0) gm/dL Hct 41.9 (34.0-46.0) % MCV 86.6 (80.0-100.0) fL MCH 27.8 (25.0-35.0) pg MCHC 32.1 (31.0-37.0) g/dL RDW 15.1 (11.5-15.5) % Plt Count 346 (150-450) k/uL MPV 7.1 Neutrophils % 75 % Lymphocytes % 17 % Monocytes % 3 % Eosinophils % 2 % Basophils % 1 % Neutrophils # 8.1 H (1.3-7.7) k/uL Lymphocytes # 1.8 (1.0-4.8) k/uL Monocytes # 0.3 (0-1.0) k/uL Eosinophils # 0.3 (0-0.7) k/uL Basophils # 0.1 (0-0.2) k/uL Sodium 137 (137-145) mmol/L Potassium 4.1 (3.5-5.1) mmol/L Chloride 100 (98-107) mmol/L Carbon Dioxide 27 (22-30) mmol/L Anion Gap 10 mmol/L BUN 15 (7-17) mg/dL Creatinine 1.16 H (0.52-1.04) mg/dL Est GFR (CKD-EPI)AfAm 62 (>60 ml/min/1.73 sqM) Est GFR (CKD-EPI)NonAf 53 (>60 ml/min/1.73 sqM) Glucose 110 H (74-99) mg/dL Lactic Ac Sepsis Rflx Plasma Lactic Acid Min (0.7-2.0) mmol/L Calcium 9.9 (8.4-10.2) mg/dL Magnesium (1.6-2.3) mg/dL Total Bilirubin 0.6 (0.2-1.3) mg/dL AST 45 H (14-36) U/L ALT 32 (4-34) U/L Alkaline Phosphatase 127 H (38-126) U/L Total Protein 8.0 (6.3-8.2) g/dL Albumin 4.7 (3.5-5.0) g/dL Amylase 38 (30-110) U/L Lipase 62 (23-300) U/L Urine Color Urine Appearance (Clear) Urine pH (5.0-8.0) Ur Specific [place] (1.001-1.035) Urine Protein (Negative) Urine Glucose (UA) (Negative) Urine Ketones (Negative) Urine Blood (Negative) Urine Nitrite (Negative) Urine Bilirubin (Negative) Urine Urobilinogen (<2.0) mg/dL Ur Leukocyte Esterase (Negative) Urine RBC (0-5) /hpf Urine WBC (0-5) /hpf Urine WBC Clumps (None) /hpf Ur Squamous Epith Cells (0-4) /hpf Hyaline Casts (0-2) /lpf Urine Mucus (None) /hpf C. difficile (EIA) Intrp Negative (Negative) Influenza Type A (PCR) (Not Detectd) Influenza Type B (PCR) (Not Detectd) RSV (PCR) (Not Detectd) SARS-CoV-2 (PCR) (Not Detectd) 11/20/23 11/20/23 11/20/23 Range/Units 12:01 12:01 12:12 WBC (3.8-10.6) k/uL RBC (3.80-5.40) m/uL Hgb (11.4-16.0) gm/dL Hct (34.0-46.0) % MCV (80.0-100.0) fL MCH (25.0-35.0) pg MCHC (31.0-37.0) g/dL RDW (11.5-15.5) % Plt Count (150-450) k/uL MPV Neutrophils % % Lymphocytes % % Monocytes % % Eosinophils % % Basophils % % Neutrophils # (1.3-7.7) k/uL Lymphocytes # (1.0-4.8) k/uL Monocytes # (0-1.0) k/uL Eosinophils # (0-0.7) k/uL Basophils # (0-0.2) k/uL Sodium (137-145) mmol/L Potassium (3.5-5.1) mmol/L Chloride (98-107) mmol/L Carbon Dioxide (22-30) mmol/L Anion Gap mmol/L BUN (7-17) mg/dL Creatinine (0.52-1.04) mg/dL Est GFR (CKD-EPI)AfAm (>60 ml/min/1.73 sqM) Est GFR (CKD-EPI)NonAf (>60 ml/min/1.73 sqM) Glucose (74-99) mg/dL Lactic Ac Sepsis Rflx Plasma Lactic Acid Min 2.5 H* (0.7-2.0) mmol/L Calcium (8.4-10.2) mg/dL Magnesium 1.9 (1.6-2.3) mg/dL Total Bilirubin (0.2-1.3) mg/dL AST (14-36) U/L ALT (4-34) U/L Alkaline Phosphatase (38-126) U/L Total Protein (6.3-8.2) g/dL Albumin (3.5-5.0) g/dL Amylase (30-110) U/L Lipase (23-300) U/L Urine Color Urine Appearance (Clear) Urine pH (5.0-8.0) Ur Specific [place] (1.001-1.035) Urine Protein (Negative) Urine Glucose (UA) (Negative) Urine Ketones (Negative) Urine Blood (Negative) Urine Nitrite (Negative) Urine Bilirubin (Negative) Urine Urobilinogen (<2.0) mg/dL Ur Leukocyte Esterase (Negative) Urine RBC (0-5) /hpf Urine WBC (0-5) /hpf Urine WBC Clumps (None) /hpf Ur Squamous Epith Cells (0-4) /hpf Hyaline Casts (0-2) /lpf Urine Mucus (None) /hpf C. difficile (EIA) Intrp (Negative) Influenza Type A (PCR) Not Detected (Not Detectd) Influenza Type B (PCR) Not Detected (Not Detectd) RSV (PCR) Not Detected (Not Detectd) SARS-CoV-2 (PCR) Not Detected (Not Detectd) 11/20/23 11/20/23 Range/Units 12:40 13:32 WBC (3.8-10.6) k/uL RBC (3.80-5.40) m/uL Hgb (11.4-16.0) gm/dL Hct (34.0-46.0) % MCV (80.0-100.0) fL MCH (25.0-35.0) pg MCHC (31.0-37.0) g/dL RDW (11.5-15.5) % Plt Count (150-450) k/uL MPV Neutrophils % % Lymphocytes % % Monocytes % % Eosinophils % % Basophils % % Neutrophils # (1.3-7.7) k/uL Lymphocytes # (1.0-4.8) k/uL Monocytes # (0-1.0) k/uL Eosinophils # (0-0.7) k/uL Basophils # (0-0.2) k/uL Sodium (137-145) mmol/L Potassium (3.5-5.1) mmol/L Chloride (98-107) mmol/L Carbon Dioxide (22-30) mmol/L Anion Gap mmol/L BUN (7-17) mg/dL Creatinine (0.52-1.04) mg/dL Est GFR (CKD-EPI)AfAm (>60 ml/min/1.73 sqM) Est GFR (CKD-EPI)NonAf (>60 ml/min/1.73 sqM) Glucose (74-99) mg/dL Lactic Ac Sepsis Rflx Y Plasma Lactic Acid Min (0.7-2.0) mmol/L Calcium (8.4-10.2) mg/dL Magnesium (1.6-2.3) mg/dL Total Bilirubin (0.2-1.3) mg/dL AST (14-36) U/L ALT (4-34) U/L Alkaline Phosphatase (38-126) U/L Total Protein (6.3-8.2) g/dL Albumin (3.5-5.0) g/dL Amylase (30-110) U/L Lipase (23-300) U/L Urine Color Yellow Urine Appearance Cloudy H (Clear) Urine pH 6.5 (5.0-8.0) Ur Specific [place] 1.044 H (1.001-1.035) Urine Protein 1+ H (Negative) Urine Glucose (UA) Negative (Negative) Urine Ketones 1+ H (Negative) Urine Blood Trace H (Negative) Urine Nitrite Negative (Negative) Urine Bilirubin Negative (Negative) Urine Urobilinogen <2.0 (<2.0) mg/dL Ur Leukocyte Esterase Trace H (Negative) Urine RBC 3 (0-5) /hpf Urine WBC 33 H (0-5) /hpf Urine WBC Clumps Few H (None) /hpf Ur Squamous Epith Cells 18 H (0-4) /hpf Hyaline Casts 10 H (0-2) /lpf Urine Mucus Occasional H (None) /hpf C. difficile (EIA) Intrp (Negative) Influenza Type A (PCR) (Not Detectd) Influenza Type B (PCR) (Not Detectd) RSV (PCR) (Not Detectd) SARS-CoV-2 (PCR) (Not Detectd) Disposition Clinical Impression: Gastroenteritis, Nicotine dependence Disposition: HOME SELF-CARE Instructions (If sedation given, give patient instructions): Acute Nausea and Vomiting (ED), Acute Diarrhea (ED) Additional Instructions: Return to the emergency department with any new, worsening, or concerning symptoms. You can take the Reglan up to every 6 hours as needed for nausea and vomiting. Take the cholestyramine powder twice daily. Stop taking this when the diarrhea improves/resolves. Take the Lomotil as 1 to 2 tablets up to 4 times daily. Stop taking this as well when the diarrhea improves/resolves. Make sure you drink a lot of fluid. Follow up with your primary care provider in 1-2 days. Prescriptions: Cholestyramine (with Sugar) [Cholestyramine Packet] 4 gm PO BID PRN #60 packet PRN Reason: Diarrhea Diphenoxylate HCl/Atropine [Lomotil 2.5-0.025 mg Tablet] 1 - 2 tab PO QID PRN 3 Days #24 tab PRN Reason: Diarrhea Metoclopramide [Reglan] 10 mg PO Q6H PRN #30 tab PRN Reason: Nausea And Vomiting Is patient prescribed a controlled substance at d/c from ED?: Yes When asked, does pt state using other controlled substances?: Yes If prescribed controlled substance>3 days was MAPS reviewed?: Prescribed <3 Days Referrals: Audi Marte DO [Primary Care Provider] - 1-2 days Time of Disposition: 14:11
[2023-11-20 12:09] LABS: Basophils # (A) 0.1 k/uL (0-0.2); Basophils % (A) 1 %; Eosinophils # (A) 0.3 k/uL (0-0.7); Eosinophils % (A) 2 %; HCT 41.9 % (34.0-46.0); HGB 13.4 gm/dL (11.4-16.0); Lymphocytes # (A) 1.8 k/uL (1.0-4.8); Lymphocytes % (A) 17 %; MCH 27.8 pg (25.0-35.0); MCHC 32.1 g/dL (31.0-37.0); MCV 86.6 fL (80.0-100.0); Mean Platelet Volume 7.1; Monocytes # (A) 0.3 k/uL (0-1.0); Monocytes % (A) 3 %; Neutrophils # (A) 8.1 k/uL (1.3-7.7); Neutrophils % (A) 75 %; Platelet Count 346 k/uL (150-450); RBC 4.83 m/uL (3.80-5.40); RDW 15.1 % (11.5-15.5); WBC 10.8 k/uL (3.8-10.6)
[2023-11-20] MEDS: SODIUM CHLORIDE 0.9% 2,000 ML IV STA (12:12)
[2023-11-20] MEDS: FAMOTIDINE 20 MG/2 ML VIAL IV STA (12:13)
[2023-11-20] MEDS: PANTOPRAZOLE 40 MG/10 ML VIAL IVP STA (12:15)
[2023-11-20] MEDS: METOCLOPRAMIDE 5 MG/ML 2 ML VIAL IVP STA (12:16)
[2023-11-20 12:25] LABS: ALT 32 U/L (4-34); AST 45 U/L (14-36); African American GFR (CKD) 62 (>60 ml/min/1.73 sqM); Albumin 4.7 g/dL (3.5-5.0); Alkaline Phosphatase 127 U/L (38-126); Amylase 38 U/L (30-110); Anion Gap 10 mmol/L; Blood Urea Nitrogen 15 mg/dL (7-17); Calcium 9.9 mg/dL (8.4-10.2); Carbon Dioxide 27 mmol/L (22-30); Chloride 100 mmol/L (98-107); Glucose 110 mg/dL (74-99); Lipase 62 U/L (23-300); Non-African American GFR(CKD) 53 (>60 ml/min/1.73 sqM); Potassium 4.1 mmol/L (3.5-5.1); Sodium 137 mmol/L (137-145); Total Bilirubin 0.6 mg/dL (0.2-1.3)
[2023-11-20 13:55] LABS: Appearance,Urine Cloudy (Clear); Bilirubin,Urine Negative (Negative); Blood,Urine Trace (Negative); Color,Urine Yellow; Glucose,Urine (UA) Negative (Negative); Hyaline Casts,Urine 10 /lpf (0-2); Ketones,Urine 1+ (Negative); Leukocyte Esterase,Urine Trace (Negative); Mucus,Urine Occasional /hpf; Nitrite,Urine Negative (Negative); PH, Urine 6.5 (5.0-8.0); Protein,Urine 1+ (Negative); RBC,Urine 3 /hpf (0-5); Specific Gravity,Urine 1.044 (1.001-1.035); Squamous Epithelial Cell,Urine 18 /hpf (0-4); Urobilinogen,Urine <2.0 mg/dL (<2.0); WBC,Urine 33 /hpf (0-5)
[2023-11-20 15:02] VITALS: BP 148/95; PULSE 86; RESP 18; TEMP 98.1
== END 2023-11-20 14:43 | disposition home or self-care (01) ==
LOC: EC 11:22
DX: K52.9 Noninfective gastroenteritis and colitis, unspecified (principal); F17.210 Nicotine dependence, cigarettes, uncomplicated; K50.90 Crohn's disease, unspecified, without complications; Z11.52 Encounter for screening for COVID-19; Z88.5 Allergy status to narcotic agent; Z88.8 Allergy status to other drugs, medicaments and biological substances; Z90.49 Acquired absence of other specified parts of digestive tract
CPT/HCPCS: 99406; 99283; 96374; 96375 ×2; 96361 ×2; 36415; 80053; 82150; 83605; 83690; 83735; 85025; 81001; 87324; 87636; J2765; J3490; C9113

== ENCOUNTER → 2024-02-22 | Outpatient (CLI) | payer BC ==
--- NOTE | 2024-02-22 16:11 | CT ---
EXAMINATION TYPE: CT abdomen pelvis w con DATE OF EXAM: 02/22/2024 COMPARISON: 05/16/2022 HISTORY: abdominal pain, nausea, vomiting CT DLP: 1848 mGycm CONTRAST: CT scan of the abdomen and pelvis is performed with Oral Contrast and with IV Contrast, patient injec emily with 100ml mL of Isovue 300. FINDINGS: LUNG BASES-: No visible nodule. No infiltrate. LIVER/GB: The gallbladder is surgically absent. Hepatomegaly with underlying hepatic steatosis. No space occupying hepatic lesion. Biliary tree is of normal caliber. PANCREAS: No inflammation. No distinct mass. SPLEEN: No splenic enlargement. No lesion seen. ADRENALS: No nodule. No thickening. KIDNEYS/BLADDER: No hydronephrosis. No nephrolithiasis. No distinct renal mass. Urinary bladder g rossly unremarkable. BOWEL: Normal appendix. Normal bowel caliber. No inflammation. GENITAL ORGANS: No gross abnormality. LYMPH NODES: No greater than 1cm abdominal or pelvic lymph nodes are appreciated. AORTA: No significant abnormality. OSSEOUS STRUCTURES: No significant abnormality is seen. OTHER: Anterior abdominal wall mesh repair in appropriate position IMPRESSION: 1. Hepatomegaly with steatosis.
== END | disposition home or self-care (01) ==
LOC: RADCTMAIN 14:05
PROVIDERS: ATTEND Family Medicine
DX: R16.0 Hepatomegaly, not elsewhere classified (principal); E88.89 Other specified metabolic disorders
CPT/HCPCS: 74177; Q9967

== ENCOUNTER → 2024-12-07 | Outpatient (CLI) | payer BC ==
--- NOTE | 2024-12-07 14:44 | MM ---
Reason for Exam: Screening (asymptomatic). Last mammogram was performed 1 year(s) and 3 month(s) ago. Patient History: Menarche at age 10. First Full-Term at age 28. Late child-bearing (after 30). Postmenopausal. Risk Values: Camila 5 year model risk: 1.7%. NCI Lifetime model risk: 10.9%. Prior Study Comparison: 12/28/2017 Bilateral Screening Mammogram, [facility]. 07/16/2022 Bilateral MG 3D screening mammo w/cad, [facility]. 09/02/2023 Bilateral MG 3D screening mammo w/cad, [facility]. Tissue Density: There are scattered areas of fibroglandular density. Findings: Analyzed By CAD. There are tiny benign-appearing round calcifications bilaterally redemonstrated. There is no suspicious group of microcalcifications or new suspicious mass in either breast. Overall Assessment: Benign, BI-RAD 2 Management: Screening Mammogram of both breasts in 1 year. . Patient should continue monthly self-breast exams. A clinical breast exam by your physician is recommended on an annual basis. This exam should not preclude additional follow-up of suspicious palpable abnormalities. Note on Camila scores and lifetime risk: 1. A Camila score greater than 3% is considered moderate risk. If this is the case, consider specialist referral to assess eligibility for a risk reducing agent. 2. If overall lifetime risk for the development of breast cancer is 20% or higher, the patient may qualify for future screening with alternating mammogram and breast MRI. [facility], , 12/07/2024 2:41 PM. Electronically signed and approved by: Erich Serna M.D.
--- NOTE | 2024-12-07 16:07 | BD ---
EXAMINATION TYPE: Axial Bone Density DATE OF EXAM: 12/07/2024 CLINICAL HISTORY: 54 years old Female. ICD-10 CODE: M859 BONE DISORDER , Additional History: Height: 62.5 Weight: 293 FRAX RISK QUESTIONS: Family History (Parent hip fracture): no History of Fracture in Adulthood: no Secondary Osteoporosis: no RISK FACTORS HISTORY OF: Surgery to Spine/Hip(right/left)/Wrist (right/left): no MEDICATIONS: Thyroid Medications: no Osteoporosis Medications: no EXAM MEASUREMENTS: Bone mineral densitometry was performed using the [employer] System. Bone mineral density as measured about the Lumbar spine is: ----- L1-L4(G/cm2): 1.184 T Score Values are as follows: ----- L1: -0.5 ----- L2: 0.3 ----- L3: 0.0 ----- L4: 0.2 ----- L1-L4: 0.0 Z Score Values are as follows: ----- L1: -0.8 ----- L2: 0.0 ----- L3: -0.2 ----- L4: -0.1 ----- L1-L4: -0.2 Bone mineral density baseline Bone mineral density about the R hip (g/cm2): 0.998 Bone mineral density about the L hip (g/cm2): 1.003 T Score values are as follows: -----R Neck: -0.7 -----L Neck: -1.2 -----R Total: -0.1 -----L Total: 0.0 Z Score values are as follows: -----R Neck: -0.4 -----L Neck: -0.9 -----R Total: -0.2 -----L Total: -0.2 Bone mineral density baseline FRAX%s: The graph provided illustrates a 5.1% chance for a major osteoporotic fx and a 0.3% chance fo r the hips probability for fx in 10 years time. IMPRESSION: Osteopenia (T Score between -2.5 and -1). There is slightly increased risk of fracture and the patient may be considered for treatment. Re-Screen 2-5 years. NOTE: T-SCORE=SD OF THE YOUNG ADULT MEAN. [facility], , 12/07/2024 4:04 PM
== END | disposition home or self-care (01) ==
LOC: RADMAMWWP 14:00
PROVIDERS: ATTEND Family Medicine
DX: Z12.31 Encounter for screening mammogram for malignant neoplasm of breast (principal); R92.323 Mammographic fibroglandular density, bilateral breasts; R92.1 Mammographic calcification found on diagnostic imaging of breast; M85.89 Other specified disorders of bone density and structure, multiple sites; Z79.52 Long term (current) use of systemic steroids; Z78.0 Asymptomatic menopausal state
CPT/HCPCS: 77063; 77067; 77080